=== PATIENT | male | born 1970 | race Caucasian/White ===

== ENCOUNTER 2018-08-09 18:38 | Emergency (ER) | payer MEDICAID, SELFPAY ==
[2018-08-09 18:41] VITALS: BP 143/105; PULSE 113; RESP 16; TEMP 36.3; O2SAT 99; BMI 29.1
--- NOTE | 2018-08-09 18:55 | EKG12_ITS ---
Test Reason : Blood Pressure : / mmHG Vent. Rate : 094 BPM Atrial Rate : 094 BPM P-R Int : 132 ms QRS Dur : 076 ms QT Int : 348 ms P-R-T Axes : 036 006 028 degrees QTc Int : 435 ms Normal sinus rhythm Nonspecific T wave abnormality Abnormal ECG Confirmed by CON MUIR, HANNA ([id number]), technical writer and editor COLLIN JACOBO ([id number] on 08/11/2018 2:40:00 PM Referred By: NIRANJAN Confirmed By:HANNA ANDUJAR MD
--- NOTE | 2018-08-09 19:01 | ED.RN ---
NO OLD EKG IN MUSE.
--- NOTE | 2018-08-09 19:18 | ED.VISSUMM ---
- ER Visit Summary Date of Service: 08/09/18 Chief Complaint: [] Transient confusion today History of Present Illness: The patient is a 48 M [] was with his they were about to go to lunch at a restaurant when he indicates he simply did not know where he was, he had trouble with memory for short period of time. He had no headache no change in vision no numbness 6 paresthesias he attributes this to the fact that he recently stopped Keppra which has been on for about 3 years related to seizures, however he recently had an extensive evaluation by his neurologist in [place] including multiple EEGs at least one possibly 2 MRI scans one with contrast that showed no brain lesions or acute brain abnormalities and since he had not had a seizure in some time they recommended he be weaned off the Keppra and he actually stopped the Keppra about 3 days ago, at this time he is back to his baseline, he has absolute clear recollection in detail of all of the events of today including remembering the episode when he seemed to have trouble remembering was with him there were no seizure activities he was not ill in any way today no fever no cough no new meds no history of stroke [place] PE DVT he is back to baseline resting cuffing the bed Physical Examination: [] 140/100 afebrile General, no distress resting comfortably HEENT is generally unremarkable The neck is supple no adenopathy Cardiovascular, regular rate and rhythm Lungs, clear bilateral Abdomen, soft nontender Extremities, no clubbing cyanosis or edema Neurologic, awake alert answering questions appropriately moving all 4 extremities stable in great detail to provide history about the entire day today including when he was confused about the restaurant location etc. given all the above is head CT screening labs The patient's labs and head CT are all generally unremarkable please see those reports his clinical neurologic exam remained completely unremarkable Expressing concern that this episode is related to the fact that he recently discontinued the Keppra I have explained to the differential is very broad at this time clinically looks well feels comfortable discharge home he wants to be discharged home I have asked him to contact his neurologist regarding all the above and whether or not the Keppra should be reinstituted and otherwise follow-up with all of his outpatient providers he is very comp with that plan and will return for change in symptoms Test Results: [] Emergency Department Course and Treatment: [] Treatment Plan: [] Disposition: [] Home stable Impression: [] Transient episode of confusion resolved This note was generated with Jambo dictation software. It may contain incorrect words, spelling, and punctuation that were not noted in review of the chart prior to signing ED Disposition - Plan for ED Patient: Chief Complaint: Confusion
--- NOTE | 2018-08-09 19:22 | ED.DCSUM_ITS ---
- ER Visit Summary Date of Service: 08/09/18 Chief Complaint: [] Transient confusion today History of Present Illness: The patient is a 48 M [] was with his they were about to go to lunch at a restaurant when he indicates he simply did not know where he was, he had trouble with memory for short period of time. He had no headache no change in vision no numbness 6 paresthesias he attributes this to the fact that he recently stopped Keppra which has been on for about 3 years related to seizures, however he recently had an extensive evaluation by his neurologist in [place] including multiple EEGs at least one possibly 2 MRI scans one with contrast that showed no brain lesions or acute brain abnormalities and since he had not had a seizure in some time they recommended he be weaned off the Keppra and he actually stopped the Keppra about 3 days ago, at this time he is back to his baseline, he has absolute clear recollection in detail of all of the events of today including remembering the episode when he seemed to have trouble remembering was with him there were no seizure activities he was not ill in any way today no fever no cough no new meds no history of stroke [place] PE DVT he is back to baseline resting cuffing the bed Physical Examination: [] 140/100 afebrile General, no distress resting comfortably HEENT is generally unremarkable The neck is supple no adenopathy Cardiovascular, regular rate and rhythm Lungs, clear bilateral Abdomen, soft nontender Extremities, no clubbing cyanosis or edema Neurologic, awake alert answering questions appropriately moving all 4 extremities stable in great detail to provide history about the entire day today including when he was confused about the restaurant location etc. given all the above is head CT screening labs The patient's labs and head CT are all generally unremarkable please see those reports his clinical neurologic exam remained completely unremarkable Expressing concern that this episode is related to the fact that he recently discontinued the Keppra I have explained to the differential is very broad at this time clinically looks well feels comfortable discharge home he wants to be discharged home I have asked him to contact his neurologist regarding all the above and whether or not the Keppra should be reinstituted and otherwise follow- up with all of his outpatient providers he is very comp with that plan and will return for change in symptoms Test Results: [] Emergency Department Course and Treatment: [] Treatment Plan: [] Disposition: [] Home stable Impression: [] Transient episode of confusion resolved This note was generated with [employer] dictation software. It may contain incorrect words, spelling, and punctuation that were not noted in review of the chart prior to signing ED Disposition - Plan for ED Patient: Chief Complaint: Confusion
--- NOTE | 2018-08-09 19:22 | CT_ITS ---
STUDY: CT BRAIN WITHOUT CONTRAST REASON FOR EXAM: Male, 48 years old. Confusion. History of seizures. RADIATION DOSAGE (If Supplied By Facility): CTDIvol = ( 44.99 ) mGy, DLP = ( 796.11 ) mGycm TECHNIQUE: Transaxial CT imaging of the brain was performed without administration of intravenous contrast material. Individualized dose optimization techniques were used for this CT. COMPARISON: None. FINDINGS: Normal soft tissue structures. Normal calvarium. Normal size ventricles and extra-axial spaces for the patient's age. Normal white matter tracts of the cerebral hemispheres. Normal basal ganglia and thalami. Normal brainstem. Normal cerebellum. There is no intracranial hemorrhage. There are no findings of an acute ischemic infarction. Normal visualized paranasal sinuses. CT/Brain/Head without Contrast IMPRESSION: Normal unenhanced CT scan of the brain. Electronically Signed: Nikki Lisa MD at 19:52 EST Tel , Service support ,
[2018-08-09] MEDS: 0.9% Normal Saline 1,000 ML 125 ML IV (19:30)
[2018-08-09 19:34] LABS: Absolute Lymphocyte Count 2.03 X10^3/ul (0.83-4.51); Basophil# 0.03 X10^3/uL; Basophil% 0.5 % (0-1); Eosinophil# 0.18 X10^3/uL; Eosinophils% 2.7 % (0-5); Hematocrit 43.2 % (40-54); Hemoglobin 15.3 g/dl (13.0-16.5); Lymphocyte # 2.03 X10^3/ul (4.0); Lymphocyte % 30.6 % (19-41); Mean Corp Hgb Conc 35.4 g/gl (32-36); Mean Corpuscular Volume 87.4 fL (80-94); Mean Platelet Vol. 10.8 fl (6.2-12.0); Monocyte# 0.39 X10^3/uL; Monocyte% 5.9 % (0-10); Neutrophil % 60.3 % (47-70); Platelet Count 217 K/mm3 (150-450); RBC Distribution Width CV 13.1 % (11.6-14.6); RBC Distribution Width SD 41.8 fl (35.1-43.9); Red Blood Count 4.94 M/mm3 (4.6-6.2); White Blood Count 6.6 K/mm3 (4.4-11.0)
[2018-08-09 19:37] LABS: Bacteria 0 SEEN /hpf (None Seen); Mucous, Urine 0 SEEN /hpf (<or=2+); Red Blood Cells-Urine 0 SEEN /hpf (0-5); Squamous Epithelial Cells - UA 0 SEEN /hpf (0-5); White Blood Cells 0 SEEN /hpf (0-5)
[2018-08-09 19:38] LABS: POSITIVE COUNT NO; POSITIVE DIFFERENTIAL NO; POSITIVE MORPHOLOGY NO
[2018-08-09 19:47] LABS: AST(SGOT) 41 U/L (15-37); Alanine Aminotransfer ALT/SGPT 75 U/L (16-61); Albumin, Serum 4.1 g/dL (3.2-5.0); Alkaline Phosphatase 85 U/L (45-117); Anion Gap 10 (5-15); BUN 12 mg/dL (7-18); BUN/Creat Ratio 10.1 RATIO (10-20); Bilirubin, Direct 0.15 mg/dL (0.00-0.30); Calcium,Total 8.5 mg/dL (8.5-10.1); Chloride 107 mmol/L (98-107); Creatinine, Serum 1.19 mg/dL (0.70-1.30); EST Glomerular Filtration Rate 70 mL/min (>60); Est Glom Filt Rate - Afr Amer 84 mL/min (>60); Estimated Creatinine Clearance 79.24 ml/min; Globulin 3.4 g/dL (2.2-4.2); Glucose 212 mg/dL (74-106); Lipase 253 U/L (73-393); Potassium 3.8 mmol/L (3.5-5.1); Protein, Total 7.5 g/dL (6.4-8.2); Sodium Level 140 mmol/L (136-145)
[2018-08-09 19:56] LABS: Color, Urine Yellow (Yellow); Glucose, Dipstick 100 mg/dl (Normal); Ketone-Dipstick 5 mg/dl (Negative); Leukocyte Esterase-Dipstick Negative /ul (Negative); Nitrite-Dipstick Negative (Negative); Occult Blood-Urine Negative /ul (Negative); Protein-Dipstick 30 mg/dl (Negative); Specific Gravity, Urine 1.015 (1.002-1.030); Urine Bilirubin Dipstick Negative (Negative); Urine Clarity Clear (Clear); Urine Urobilinogen Normal (Normal)
--- NOTE | 2018-08-09 20:06 | ED.DEP ---
ED Disposition - Plan for ED Patient: Chief Complaint: Confusion Instructions: ED Confusion Referrals: Darrell Singer MD [Primary Care Provider] - Additional Instructions: Please contact your neurologist regarding the above episode and whether or not you need other medications or management
[2018-08-09 20:57] VITALS: BP 140/103; PULSE 89; PULSE 92; O2SAT 96
== END 2018-08-09 21:17 | disposition home or self-care (01) ==
LOC: ED 19:21
PROVIDERS: Emergency Provider Emergency Medicine; Family Provider Family Medicine; PCP Family Medicine
DX: R41.0 Disorientation, unspecified (principal); Z79.899 Other long term (current) drug therapy; R56.9 Unspecified convulsions
CPT/HCPCS: 70450; 80048; 80076; 81001; 83690; 84484; 85025; 93005; 96360; 96361; 99283; J7030; A4216

== ENCOUNTER 2019-04-21 13:43 | Emergency (ER) | payer OTHER, MEDICAID, SELFPAY ==
[2019-04-21 13:44] VITALS: BP 123/81; PULSE 72; RESP 21; TEMP 36.6; O2SAT 97; BMI 29.6
--- NOTE | 2019-04-21 14:08 | RAD_ITS ---
STUDY: X-RAY CHEST REASON FOR EXAM: Male, 48 years old. Shortness of breath, dyspnea TECHNIQUE: AP COMPARISON: None. FINDINGS: EKG leads project over the chest. Right hemidiaphragm is elevated. There is no demonstrated pleural abnormality. Normal size heart. Normal mediastinum and jackson. Normal visualized pulmonary arteries. Normal visualized aortic arch and descending thoracic aorta. Normal visualized thoracic spine. Normal visualized ribs, clavicles, and shoulders. There is no demonstrated abnormality of the visualized soft tissue structures of the upper abdomen. RAD/Chest 1 View (Portable) IMPRESSION: No airspace consolidation or pleural effusion. Elevation of the right hemidiaphragm. Electronically Signed: Eugenio Mandujano MD ([place]) at 14:53 EDT , Service support ,
--- NOTE | 2019-04-21 14:09 | EKG12_ITS ---
Test Reason : CP Blood Pressure : / mmHG Vent. Rate : 071 BPM Atrial Rate : 071 BPM P-R Int : 126 ms QRS Dur : 086 ms QT Int : 400 ms P-R-T Axes : 034 028 049 degrees QTc Int : 434 ms Normal sinus rhythm Nonspecific T wave abnormality Abnormal ECG Confirmed by CON MUIR, HANNA ([id number]), film or videotape editor STUART ALBRIGHT ([id number]) on 04/24/2019 1:21:57 PM Referred By: JEAN Confirmed By:HANNA ANDUJAR MD
[2019-04-21 14:14] VITALS: BP 105/77; BP 113/89; BP 128/83; PULSE 69; PULSE 83; PULSE 86
[2019-04-21 14:20] LABS: Absolute Neutrophil Count 3.6 X10^3/uL (2.0-7.7); Basophil# 0.05 X10^3/uL; Basophil% 0.8 % (0-1); Eosinophil# 0.22 X10^3/uL; Eosinophils% 3.4 % (0-5); Hematocrit 41.6 % (40-54); Lymphocyte % 30.5 % (19-41); Mean Corp Hgb Conc 33.7 g/dL (32-36); Mean Corpuscular Hgb 30.2 pg (27.0-32.0); Mean Corpuscular Volume 89.7 fL (80-94); Mean Platelet Vol. 11.7 fl (6.2-12.0); Monocyte# 0.63 X10^3/uL; Monocyte% 9.6 % (0-10); NRBC Flagged by Analyzer 0 % (0-5); Neutrophil # 3.64 X10^3/uL (2.7-7.7); Neutrophil % 55.4 % (47-70); Platelet Count 215 K/mm3 (150-450); RBC Distribution Width CV 13.1 % (11.6-14.6); RBC Distribution Width SD 42.2 fl (35.1-43.9); Red Blood Count 4.64 M/mm3 (4.6-6.2); White Blood Count 6.6 K/mm3 (4.4-11.0)
[2019-04-21] MEDS: 0.9% Normal Saline 1,000 ML 1000 ML IV (14:22)
[2019-04-21 14:40] LABS: AST(SGOT) 27 U/L (15-37); Alanine Aminotransfer ALT/SGPT 59 U/L (16-61); Albumin, Serum 3.8 g/dL (3.2-5.0); Alkaline Phosphatase 94 U/L (45-117); Anion Gap 10 (5-15); BUN 11 mg/dL (7-18); BUN/Creat Ratio 8.6 RATIO (10-20); Calcium,Total 8.3 mg/dL (8.5-10.1); Chloride 108 mmol/L (98-107); Creatinine, Serum 1.28 mg/dL (0.70-1.30); EST Glomerular Filtration Rate 64 mL/min (>60); Est Glom Filt Rate - Afr Amer 77 mL/min (>60); Estimated Creatinine Clearance 73.67 ml/min; Globulin 3.7 g/dL (2.2-4.2); Glucose 198 mg/dL (74-106); Potassium 3.9 mmol/L (3.5-5.1); Protein, Total 7.5 g/dL (6.4-8.2); Sodium Level 142 mmol/L (136-145); Thyroid Stim Hormone (TSH) 4.81 uIU/mL (0.358-3.74)
[2019-04-21 15:11] VITALS: BP 124/82; PULSE 72; RESP 17; O2SAT 99
[2019-04-21 16:00] VITALS: BP 118/83; PULSE 71; RESP 17; O2SAT 94
--- NOTE | 2019-04-21 16:13 | EKG12_ITS ---
Test Reason : REPEAT CP Blood Pressure : / mmHG Vent. Rate : 066 BPM Atrial Rate : 066 BPM P-R Int : 126 ms QRS Dur : 082 ms QT Int : 398 ms P-R-T Axes : 039 033 061 degrees QTc Int : 417 ms Normal sinus rhythm Nonspecific T wave abnormality Abnormal ECG Confirmed by CON MUIR, HANNA ([id number]), school photograph editor STUART ALBRIGHT ([id number]) on 04/24/2019 1:22:17 PM Referred By: ALISSA Confirmed By:HANNA ANDUJAR MD
--- NOTE | 2019-04-21 17:31 | ED.DCSUM_ITS ---
- ER Visit Summary Date of Service: 04/21/19 Chief Complaint: Near syncope History of Present Illness: The patient is a 48 M who reports that 1 hour ago he had the sensation of lightheadedness. Reports it was increased with standing. He did not pass out. He reports that during this he felt like his entire body was being constricted by a snake. This included his chest, back, and abdomen. He reports that he was short of breath during this. He was gagging and coughing like he was going to vomit. Reports that the pain at that time was 10 on 10 severity. It has completely resolved. He reports that this was worsened by standing up and relieved by laying down. Patient reports he has had similar symptoms previously, but never this severe. He denies any palpitations. Physical Examination: Vitals: Stable. Afebrile. General: Well-nourished and well-developed. Head: Normocephalic atraumatic. Neck: Supple, no lymphadenopathy. No JVD. Nontender. Cardiovascular: Regular rate and rhythm. No murmurs. Respiratory: No respiratory distress. Clear to auscultation bilaterally. Abdominal: Soft, nontender, nondistended, normal bowel sounds. No guarding, rebound, or peritoneal signs. Back: Nontender. Extremities: Nontender, no edema. Skin: Normal color, no rash. Neurologic: Alert and oriented ?3. Cranial nerves II through XII are intact. Normal strength and sensation. Psych: Normal affect. Test Results: EKG is sinus at [address] changes. There it is unchanged from August 2018. Repeat EKG is unchanged. Initial troponin is negative. Repeat 3-hour troponin is negative. LFTs are normal. Chem-7 shows a chloride of 108, glucose 198, calcium 8.3. CBC is normal. TSH is elevated at 4.81. Chest x-ray shows an elevated right hemidiaphragm, but no acute disease. Emergency Department Course and Treatment: Patient had positive orthostatic vital signs. Is given a liter of normal saline. He is resting comfortably. Treatment Plan: At this time I suspect that some of the patient's symptoms were due to orthostatic hypotension. However, he reports that he still felt very lightheaded when lying. Given normal labs and an unremarkable EKG I feel it is a suitable candidate for further outpatient evaluation. He will be discharged instructions follow-up his primary care physician 1 to 2 days for another exam. Push fluids. Return to the emergency department for any worsening symptoms. Disposition: To home in improved and stable condition. Impression: 1. Near syncope, uncertain cause. 2. Orthostatic hypotension. This note was generated with [employer] software. It may contain incorrect words, spelling, and punctuation that were not noted in review of the chart prior to signing ED Disposition - Plan for ED Patient: Disposition: Home or Assisted Living Instructions: NEAR SYNCOPE, Unknown Referrals: Darrell Singer MD [Primary Care Provider] - 3-5 Days
[2019-04-21 17:49] VITALS: BP 119/92; PULSE 72; RESP 11; O2SAT 93
== END 2019-04-21 17:59 | disposition home or self-care (01) ==
PROVIDERS: Emergency Provider Emergency Medicine; Family Provider Family Medicine; PCP Family Medicine
DX: I95.1 Orthostatic hypotension (principal); E11.9 Type 2 diabetes mellitus without complications; I10 Essential (primary) hypertension; R56.9 Unspecified convulsions; E78.00 Pure hypercholesterolemia, unspecified; Z79.84 Long term (current) use of oral hypoglycemic drugs; Z79.899 Other long term (current) drug therapy
CPT/HCPCS: 71045; 80053; 84443; 84484; 85025; 93005; 96360; 96361; 99285; J7030; A4216

== ENCOUNTER 2020-09-11 06:49 | Inpatient (IN) | payer OTHER, MEDICAID, SELFPAY ==
[2020-09-11] VITALS (12 sets, daily range): BP systolic 116–158; BP diastolic 74–98; PULSE 85–110; RESP 18–89; TEMP 36.4–36.6; O2SAT 90–95; BMI 27.8; BMI 29.0
--- NOTE | 2020-09-11 07:03 | RAD_ITS ---
HISTORY: cough, SOB, loss of taste and smell, congestion x 9 dayspts is COVID+ ADDITIONAL HISTORY: None provided. COMPARISON: 04/21/2019 TECHNIQUE: Frontal chest radiograph. Number of images including paperwork: 1 FINDINGS: LUNGS AND PLEURA: Patchy bilateral airspace opacities. No pleural effusion or pneumothorax. CARDIAC SILHOUETTE: Unremarkable. MEDIASTINUM AND CHANDA: Stable. UPPER ABDOMEN: Unremarkable. SKELETON AND SOFT TISSUES: No acute findings. OTHER DEVICES AND HARDWARE: None. RAD/Chest 1 View (Portable) IMPRESSION: Bilateral pulmonary opacities, nonspecific but concerning for infection. COVID-19 infection possible. at 0741 Reported and signed by: Alyson Curry MD Electronically Signed: Alyson Curry MD at 7:41 EST Tel , Service support ,
--- NOTE | 2020-09-11 07:03 | EKG12_ITS ---
Test Reason : Blood Pressure : / mmHG Vent. Rate : 102 BPM Atrial Rate : 102 BPM P-R Int : 126 ms QRS Dur : 072 ms QT Int : 302 ms P-R-T Axes : 040 032 067 degrees QTc Int : 393 ms Sinus tachycardia Nonspecific T wave abnormality Abnormal ECG Confirmed by ROSEANN MUIR, JULIEN ([id number]), test boring crew chief STUART ALBRIGHT ([id number]) on 09/15/2020 9:47:44 AM Referred By: LAMBERTO Confirmed By:JULIEN WHITFIELD MD
--- NOTE | 2020-09-11 07:04 | ED.DCSUM_ITS ---
History of Present Illness Chief Complaint: Shortness of Breath Informant: Patient Narrative: 50-year-old male with past medical history of hyperlipidemia and DMII concerned for shortness of breath and cough. Patient's is on her 14th day of coronavirus and patient has had symptoms similar for approximately 9 days. States they worsened today with a cough where he could not catch his breath. States he becomes very dizzy. States he has been having intermittent fevers. Denies any nausea, vomiting, chest pain, abdominal pain, urinary symptoms. Past Medical History - Allergies and Home Meds Allergies/Adverse Reactions: Allergies No Known Allergies Allergy (Verified 09/11/20 06:54) Prior records reviewed: Yes Past Medical History: - - HTN and DMII Smoking Status: Former smoker Alcohol: None Drugs: None Review of Systems General: Reports: Fever, Malaise. Denies: Chills, Sweats Eyes: Denies: Visual changes - bilaterally, Diplopia ENT: Denies: Rhinorrhea, Sore throat Cardiovascular: Denies: Chest pain, Palpitations Respiratory: Reports: Dyspnea, Cough, Dyspnea on exertion Gastrointestinal: Denies: Abdominal pain, Nausea, Vomiting, Diarrhea, Melena, Hematochezia Genitourinary: Denies: Dysuria, Hematuria, Frequency Musculoskeletal: Denies: Back pain, Extremity Pain Skin: Denies: Rash, Wounds Neurological: Denies: Headache, Weakness, Numbness Physical Exam Vital Signs/Narrative: Vital Signs Temp Pulse Resp BP Pulse Ox 09/11/20 06:50 97.5 F L 110 H 18 152/96 H 90 Inital Vital Signs reviewed: Yes General: Well nourished, Well developed, No Acute Distress Head: Normocephalic, Atraumatic Eyes: Perrl, EOMI ENT: Moist mucous membranes, No rhinorrhea Neck: Supple, Nontender Cardiovascular: Regular rhythm, No murmurs, Tachycardia Respiratory: No distress, CTA bilaterally, Chest nontender Abdomen: Soft, Nontender, Nondistended, Normal bowel sounds Back: Nontender, Normal Inspection Extremities: Nontender, No edema Skin: Normal color, No rash Neurological: Alert, Oriented x3, Cranial nerves II-XII grossly intact, Normal Strength, Normal Sensation Psychological: Normal affect, Normal Mood Diagnostic/Tx/Re-eval Chest X-Ray - ED: 1 View, Read by ED Physician, Read by Radiologist, Right Infiltrate, Left Infiltrate Clinical Impression(s) from Imaging Studies Chest X-Ray 09/11/20 07:03 IMPRESSION: Bilateral pulmonary opacities, nonspecific but concerning for infection. COVID-19 infection possible. at 0741 Reported and signed by: Alyson Curry MD Electronically Signed: Alyson Curry MD at 7:41 EST Tel , Service support , Laboratory Data 09/11/20 09/11/20 07:00 07:00 WBC 4.2 L RBC 4.77 Hgb 13.7 Hct 40.2 MCV 84.3 MCH 28.7 MCHC 34.1 RDW Std Deviation 39.2 RDW Coeff of Jeremiah 12.8 Plt Count 187 MPV 11.4 Immature Gran % (Auto) 0.200 Neut % (Auto) 72.4 H Lymph % (Auto) 20.3 [place] % (Auto) 6.4 Eos % (Auto) 0.5 Baso % (Auto) 0.2 Absolute Neuts (auto) 3.1 Absolute Lymphs (auto) 0.86 Nucleated RBC % 0 Sodium 134 L Potassium 3.5 Chloride 103 Carbon Dioxide 22.0 Anion Gap 9 BUN 17 Creatinine 1.52 H Estim Creat Clear Calc 60.70 Est GFR (MDRD) Af Amer 63 Est GFR (MDRD) Non-Af 52 L BUN/Creatinine Ratio 11.2 Glucose 273 H Calcium 8.1 L Total Bilirubin 0.30 AST 27 ALT 43 Alkaline Phosphatase 103 Troponin I < 0.015 C-React Prot Ext Range 105.00 H Total Protein 7.7 Albumin 3.5 Globulin 4.2 Albumin/Globulin Ratio 0.8 L - Rhythm Strip Rhythm Strip: Sinus Tach Rate: 102 Ectopy: None - EKG Initial EKG Interpretation: Sinus Tachycardia - Sinus tachycardia at 102 bpm. CA interval of 126 ms. QTC of [address] changes. No evidence of acute ischemia. - Medical Decision Making On arrival patient is pale but not in respiratory distress. Vital signs show hypertensive and tachycardic patient with pulse ox around 90% on room air. Patient will desaturate to 88% while speaking. Patient was 89% when EMS reported to his home. Lung sounds are coarse but without wheezing. Lab work shows leukopenia with an elevated CRP and slightly elevated creatinine. Chest x-ray concerning for coronavirus. Rapid Covid negative however patient's is positive with stereotypical labs and chest x-ray patient will be treated as positive for coronavirus. Patient was given Decadron. He is requiring 1 to 2 L to maintain oxygen saturations of 93 to 94%. Patient will be given a fluid bolus given his perceived volume depletion. Patient heart rate improved as well as blood pressure following nasal cannula oxygen being placed. Given the patient's oxygen requirement as well as comorbidities and infiltrates on chest x-ray he will be admitted for further treatment and evaluation. Spoke with hospitalist who is agreeable with this plan. Patient stable at time of admission. Impression: 1. COVID-19 pneumonia 2. Hypoxemia 3. Volume depletion 4. Acute renal insufficiency ED Disposition - Plan for ED Patient: Disposition: Acute Care [facility]
[2020-09-11 07:17] LABS: Absolute Lymphocyte Count 0.86 X10^3/uL (0.83-4.51); Absolute Neutrophil Count 3.1 X10^3/uL (2.0-7.7); Basophil# 0.01 X10^3/uL; Basophil% 0.2 % (0-1); Eosinophil# 0.02 X10^3/uL; Eosinophils% 0.5 % (0-5); Hematocrit 40.2 % (40-54); Hemoglobin 13.7 g/dL (13.0-16.5); Lymphocyte # 0.86 X10^3/ul (4.0); Lymphocyte % 20.3 % (19-41); Mean Corp Hgb Conc 34.1 g/dL (32-36); Mean Corpuscular Hgb 28.7 pg (27.0-32.0); Mean Corpuscular Volume 84.3 fL (80-94); Mean Platelet Vol. 11.4 fl (6.2-12.0); Monocyte# 0.27 X10^3/uL; Monocyte% 6.4 % (0-10); NRBC Flagged by Analyzer 0 % (0-5); Neutrophil # 3.06 X10^3/uL (2.7-7.7); Neutrophil % 72.4 % (47-70); Platelet Count 187 K/mm3 (150-450); RBC Distribution Width CV 12.8 % (11.6-14.6); RBC Distribution Width SD 39.2 fl (35.1-43.9); Red Blood Count 4.77 M/mm3 (4.6-6.2); White Blood Count 4.2 K/mm3 (4.4-11.0)
[2020-09-11 07:32] LABS: ALB/GLOB Ratio 0.8 RATIO (0.9-2.4); AST(SGOT) 27 U/L (15-37); Alanine Aminotransfer ALT/SGPT 43 U/L (16-61); Albumin, Serum 3.5 g/dL (3.2-5.0); Alkaline Phosphatase 103 U/L (45-117); Anion Gap 9 (5-15); BUN 17 mg/dL (7-18); BUN/Creat Ratio 11.2 RATIO (10-20); Calcium,Total 8.1 mg/dL (8.5-10.1); Chloride 103 mmol/L (98-107); Creatinine, Serum 1.52 mg/dL (0.70-1.30); EST Glomerular Filtration Rate 52 mL/min (>60); Est Glom Filt Rate - Afr Amer 63 mL/min (>60); Globulin 4.2 g/dL (2.2-4.2); Glucose 273 mg/dL (74-106); Potassium 3.5 mmol/L (3.5-5.1); Protein, Total 7.7 g/dL (6.4-8.2); Sodium Level 134 mmol/L (136-145)
[2020-09-11] MEDS: dexAMETHasone 10 MG/ML Vial 6 MG IV (08:13)
[2020-09-11] MEDS: 0.9% Normal Saline 1,000 ML 999 ML IV (08:13)
[2020-09-11 09:23] LABS: D-Dimer Quantitative (DVT/PE) 0.59 FEU/ug/m (0.27-0.49)
[2020-09-11 10:28] LABS: Probe Check PASS; Specimen Processing Control PASS
[2020-09-11] MEDS: 0.9% Normal Saline 1,000 ML 125 ML IV ×2 (11:26→21:50)
[2020-09-11] MEDS: Insulin Lispro 100 UNIT/ML INSULN.PEN SC ×3 (11:26→21:53)
[2020-09-11] MEDS: Enoxaparin 30 MG/0.3 ML Syringe SC ×2 (11:30→21:55)
[2020-09-11 16:45] LABS: Bedside Glucose 315 mg/dL (70-110)
[2020-09-11] MEDS: metFORMIN HCl 1,000 MG Tablet 1000 MG PO (16:51)
[2020-09-11 17:10] LABS: Bedside Glucose 421 mg/dL (70-110)
--- NOTE | 2020-09-11 18:02 | PCM.HP.STD ---
Problem List (1) Shortness of breath Status: Acute (2) Nonproductive cough Status: Acute History of Present Illness Date of Admission: 09/11/20 Chief Complaint: Nonproductive cough, shortness of breath The patient is a 50 year old M seen in the emergency room at [facility] with a chief complaint of increased shortness of breath which started today, his had been diagnosed with COVID-19 infection 14 days ago, he stated he had begun feeling sick about 7 days ago. Patient also complains of a dry cough and generalized fatigue. Work-up in the emergency room included a Covid antigen test which was negative, D-dimer was elevated slightly, patient's white blood cell count was 3.8, patient's creatinine was elevated at 1.8, urinalysis was unremarkable, and chest x-ray showed bilateral infiltrates suggestive of viral pneumonia or COVID-19 pneumonia. Patient's pulse ox was 88% while speaking, when he was brought to the emergency room by EMS, his pulse ox was 89% on room air. Patient will be admitted for COVID-19 pneumonia with hypoxia and acute kidney injury, he was given IV fluids in the emergency room, IV Decadron, and he will be admitted to [place] [address] and placed on remdesivir and dexamethasone. Pulse ox will be monitored, patient is currently stable on 2 L Past Medical History Allergies No Known Allergies Allergy (Verified 09/11/20 06:54) Home Medications: Ambulatory Orders Medication Instructions Recorded Allopurinol [Zyloprim] 300 mg PO DAILY 04/21/19 Cetirizine HCl [Zyrtec] 10 mg PO DAILY 04/21/19 Diltiazem HCl [Diltiazem 24Hr Cd] 120 mg PO BID 04/21/19 Levetiracetam [Keppra] 750 mg PO BID 04/21/19 Levothyroxine [Synthroid] 25 mcg PO DAILY 04/21/19 Metformin HCl 2 tab PO BID 04/21/19 Rosuvastatin Calcium [Crestor] 5 mg PO DAILY 04/21/19 Sertraline HCl [Zoloft] 100 mg PO DAILY 04/21/19 Pantoprazole Sodium 40 mg PO DAILY 09/11/20 Surgical History: tonsillectomy Psychiatric History: No pertinent psych hx Lives: Spouse/ Significant Other Smoking Status: Former smoker Tobacco Use: Non-smoker, Chew Alcohol: Rare Drugs: None - *Family History Maternal History Items: Cancer - Lymphoma Paternal History Items: Diabetes, Heart Disease Review of Systems Constitutional: Reports: Fever, Malaise, Fatigue. Denies: Anorexia, Chills Eyes: Denies: Blurred vision, Cataracts, Conjunctivae Inflammation, Double vision, Drainage HEENT: Denies: Difficulty Swallowing, Dysphasia, Ear Pain, Eye Pain, Hearing Changes, Nasal bleeding, Nasal Congestion, Post Nasal Drip Cardiovascular: Denies: Chest Pain, Claudication, Chest Pressure, Chest Tightness, Edema Respiratory: Reports: Cough, Shortness of Breath, Shortness of breath at rest, Shortness of breath upon exertion. Denies: Hemoptysis, Pleuritic Pain, Sputum production, Wheezing Gastrointestinal: Denies: Abdominal Pain, Constipation, Diarrhea, Hematochezia, Nausea Genitourinary: Denies: Frequency, Hematuria, Nocturia, Retention Musculoskeletal: Denies: Back Pain, Foot Pain, Hand Pain, Joint swelling, Joint Tenderness, Leg Pain Skin: Denies: Dryness, Jaundice, Rash Neurological: Denies: Blurred vision, Double vision, Change in Speech, Focal weakness, Headaches, Incoordination Psychiatric: Denies: Anxiety, Depression Endocrine: Denies: Change in Body Habitus Hematologic/ Lymphatic: Denies: Anemia VTE Information - Inpt Only VTE Present on Admission: No VTE Mechan Device Prophylaxis: None VTE Pharm Prophylaxis ordered?: Yes - Physical Exam Vitals/I&O's: Vital Signs Temp Pulse Resp BP Pulse Ox 97.8 F 89 89 H 135/77 H 95 09/11/20 16:51 09/11/20 16:51 09/11/20 16:51 09/11/20 16:51 09/11/20 16:51 Oxygen Flow Rate (L/min) 2 Oxygen Delivery Method Nasal Cannula Weight: 91.6 kg Body Mass Index (BMI) 29.0 Intake and Output for Last 24 Hours 09/09/20 09/10/20 09/11/20 23:59 23:59 23:59 Intake Total 1250 / 1250 Balance 1250 / 1250 General: Alert, Oriented x3, Cooperative, No apparent distress, Well developed, Well nourished HEENT: Atraumatic, PERRLA, EOMI, Normocephalic Oral: Moist Mucosa Neck: Supple, No JVD, Trachea Midline, Thyroid Normal Size and Texture Lungs: Clear to auscultation, Normal air movement, No rhonchi, No wheeze, No rales Cardiovascular: Regular rate, Regular Rhythm, Normal S1, Normal S2, No murmurs, PMI Normal, No rub noted, No Gallop Abdomen: Bowel Sounds Present, Soft, Non Tender, Non-Distended, No hernias noted Extremities: No clubbing, No cyanosis, No edema, Capillary Refill Less than 3 Seconds Skin: No rashes, No breakdown Musculoskeletal: No Tenderness to Palpation of Joints or Extremities, No Muscle Wasting Neurological: Cranial nerves II-XII grossly intact, Neuro grossly intact, Sensory exam intact to light touch and pain, Coordination normal Psych/Mental Status: Normal Affect, Appropriate, Alert and oriented to time, place, person, mood and affect Microbiology Past 72 Hours 09/11/20 06:50 Mucosa - Nose SARS-CoV-2 Antigen (Rapid) - Final Laboratory Results 09/11/20 07:00: WBC 4.2 L, RBC 4.77, Hgb 13.7, Hct 40.2, MCV 84.3, MCH 28.7, MCHC 34.1, RDW Std Deviation 39.2, RDW Coeff of Jeremiah 12.8, Plt Count 187, MPV 11.4, Immature Gran % (Auto) 0.200, Neut % (Auto) 72.4 H, Lymph % (Auto) 20.3, Blanco % (Auto) 6.4, Eos % (Auto) 0.5, Baso % (Auto) 0.2, Absolute Neuts (auto) 3.1, Absolute Lymphs (auto) 0.86, Nucleated RBC % 0 09/11/20 07:00: Sodium 134 L, Potassium 3.5, Chloride 103, Carbon Dioxide 22.0, Anion Gap 9, BUN 17, Creatinine 1.52 H, Estim Creat Clear Calc 60.70, Est GFR (MDRD) Af Amer 63, Est GFR (MDRD) Non-Af 52 L, BUN/Creatinine Ratio 11.2, Glucose 273 H, Calcium 8.1 L, Total Bilirubin 0.30, AST 27, ALT 43, Alkaline Phosphatase 103, Troponin I < 0.015, C-React Prot Ext Range 105.00 H, Total Protein 7.7, Albumin 3.5, Globulin 4.2, Albumin/Globulin Ratio 0.8 L 09/11/20 08:00: COVID-19 ([facility]IVAN) Positive 09/11/20 08:55: D-Dimer Quant (PE/DVT) 0.59 H* 09/11/20 11:20: POC Glucose 315 H 09/11/20 16:46: POC Glucose 421 H Current Medications Acetaminophen (Acetaminophen 325 Mg Tablet) 650 mg PO Q6H PRN PRN PRN Reason: Pain Score 1-10/Temp > 100.7 F Allopurinol (Allopurinol 300 Mg Tablet) 300 mg PO DAILY [facility] Last Admin: 09/11/20 11:27 Dose: Not Given Documented by: Atorvastatin Calcium (Atorvastatin Calcium 10 Mg Tablet) 10 mg PO QHS [facility] Dexamethasone (Dexamethasone 4 Mg Tablet) 6 mg PO DAILY [facility] Diltiazem HCl (Diltiazem Cd 120 Mg Capsule) 120 mg PO BID [facility] Last Admin: 09/11/20 11:28 Dose: Not Given Documented by: Enoxaparin Sodium (Enoxaparin 30 Mg/0.3 Ml Syringe) 30 mg SC Q12 [facility] Last Admin: 09/11/20 11:30 Dose: 30 mg Documented by: Guaifenesin (Guaifenesin Dm 10 Ml Udc) 10 ml PO Q6H PRN PRN PRN Reason: COUGH Sodium Chloride () 1,000 mls @ 125 mls/hr IV .Q8H [facility] Last Admin: 09/11/20 11:26 Dose: 125 mls/hr Documented by: Remdesivir 100 mg/ Sodium (Chloride) 250 mls @ 125 mls/hr IV DAILY [facility] Stop: 09/15/20 11:59 Influenza Virus Vaccine Quadrival (Influenza Vaccine (6mos+)/Pf 0.5 Ml Syringe) 0.5 ml IM .ONCE ONE Stop: 09/12/20 10:01 Insulin Human Lispro (Insulin Lispro 100 Unit/Ml Insuln.Pen) 0 unit SC ACHS [facility]; Protocol Last Admin: 09/11/20 16:49 Dose: 11 u Documented by: Levetiracetam (Levetiracetam 750 Mg Tablet) 750 mg PO BID [facility] Last Admin: 09/11/20 11:28 Dose: Not Given Documented by: Levothyroxine Sodium (Levothyroxine 25 Mcg Tablet) 25 mcg PO DAILY [facility] Last Admin: 09/11/20 11:29 Dose: Not Given Documented by: Metformin HCl (Metformin Hcl 1,000 Mg Tablet) 1,000 mg PO BIDCM [facility] Last Admin: 09/11/20 16:51 Dose: 1,000 mg Documented by: Ondansetron HCl (Ondansetron 4 Mg/2 Ml Vial) 4 mg IV Q8H PRN PRN PRN Reason: NAUSEA/VOMITING Pantoprazole Sodium (Pantoprazole Sodium 40 Mg Tablet) 40 mg PO DAILY [facility] Last Admin: 09/11/20 11:28 Dose: Not Given Documented by: Sertraline HCl (Sertraline 100 Mg Tablet) 100 mg PO DAILY [facility] Last Admin: 09/11/20 11:29 Dose: Not Given Documented by: Sodium Chloride (0.9% Saline Lock 10 Ml Syringe) 10 - 40 ml IV UD PRN PRN Reason: SALINE FLUSH Assessment/Plan All Active Problems Shortness of breath (Acute) Nonproductive cough (Acute) #1 COVID-19 pneumonia-patient will be admitted to [facility] 2, he will be placed on remdesivir and dexamethasone, oxygen saturation will be monitored. Patient's D-dimer was elevated at 0.59, I will administer subcu Lovenox at 30 mg twice daily #2 hypoxia secondary to #1-oxygen will be administered and pulse ox will be monitored. #3 type 2 diabetes-patient's blood sugars will be monitored, sliding scale insulin will be given as needed #4 acute kidney injury-patient will be given IV fluids #5 hyperlipidemia #6 seizure disorder #7 essential hypertension Inpatient E&M: 50132 Init Hosp L3
--- NOTE | 2020-09-11 19:00 | NURSING ---
PT UPSET THAT GIVEN DIET SODA. PT AWARE THAT STEROIDS HAS MADE BS ELEVATED AND STATED, IF ITS HIGH WHY CANT I HAVE REG POP ANYWAYS?! I ALWAYS DRINK IT!
[2020-09-11] MEDS: levETIRAcetam 750 MG Tablet PO (21:55)
[2020-09-11] MEDS: Atorvastatin Calcium 10 MG Tablet PO (21:55)
[2020-09-11] MEDS: dilTIAZem CD 120 MG Capsule PO (21:55)
[2020-09-11 22:55] LABS: Bedside Glucose 295 mg/dL (70-110)
[2020-09-12 03:16] VITALS: BP 111/72; PULSE 85; RESP 18; TEMP 36.7; O2SAT 93
[2020-09-12] MEDS: guaiFENesin Dm 10 ML UDC PO ×3 (03:37→21:52)
[2020-09-12] MEDS: 0.9% Normal Saline 1,000 ML 125 ML IV ×3 (03:39→21:08)
[2020-09-12 05:47] LABS: ALB/GLOB Ratio 0.9 RATIO (0.9-2.4); AST(SGOT) 18 U/L (15-37); Alanine Aminotransfer ALT/SGPT 33 U/L (16-61); Albumin, Serum 2.8 g/dL (3.2-5.0); Alkaline Phosphatase 84 U/L (45-117); Anion Gap 6 (5-15); BUN 16 mg/dL (7-18); BUN/Creat Ratio 16.5 RATIO (10-20); Calcium,Total 7.5 mg/dL (8.5-10.1); Chloride 111 mmol/L (98-107); Creatinine, Serum 0.97 mg/dL (0.70-1.30); EST Glomerular Filtration Rate 88 mL/min (>60); Est Glom Filt Rate - Afr Amer 106 mL/min (>60); Estimated Creatinine Clearance 95.12 ml/min; Globulin 3.1 g/dL (2.2-4.2); Glucose 229 mg/dL (74-106); Potassium 4.1 mmol/L (3.5-5.1); Protein, Total 5.9 g/dL (6.4-8.2); Sodium Level 140 mmol/L (136-145)
[2020-09-12] MEDS: Insulin Lispro 100 UNIT/ML INSULN.PEN SC ×4 (07:47→21:03)
[2020-09-12 08:15] VITALS: O2SAT 95
[2020-09-12 08:23] VITALS: BP 123/79; PULSE 79; RESP 18; TEMP 36.9; O2SAT 94
[2020-09-12] MEDS: Sertraline 100 MG Tablet PO (08:25)
[2020-09-12] MEDS: Enoxaparin 30 MG/0.3 ML Syringe SC ×2 (08:25→21:02)
[2020-09-12] MEDS: Levothyroxine 25 MCG TABLET PO (08:25)
[2020-09-12] MEDS: levETIRAcetam 750 MG Tablet PO ×2 (08:26→21:02)
[2020-09-12] MEDS: metFORMIN HCl 1,000 MG Tablet 1000 MG PO ×2 (08:26→16:51)
[2020-09-12] MEDS: dilTIAZem CD 120 MG Capsule PO ×2 (08:26→21:02)
[2020-09-12] MEDS: Allopurinol 300 MG Tablet PO (08:26)
[2020-09-12] MEDS: dexAMETHasone 4 MG Tablet 6 MG PO (08:26)
[2020-09-12] MEDS: Pantoprazole Sodium 40 MG Tablet PO (08:26)
[2020-09-12 08:33] LABS: Bedside Glucose 215 mg/dL (70-110)
--- NOTE | 2020-09-12 11:36 | CASEMGMT ---
RN CM Assessment Note Introduced role of CM to patient via phone to room. Demographics, PCP verified. Patient states he is independent, no concerns re: discharge. Pt states he does not have care needs. Pt states had covid prior to him. No concerns re: getting groceries, medications or follow up on dc. COVID TESTING: @ [facility] 09/11/20 positive Presentation: cough, shortness of breath Diagnosis: COVID-19 PCP: Dr. Singer Insurance: [employer]/[facility] Preferred Pharmacy: Currently [place] Prescription Benefit: yes LNOK: Living Arrangements: lives independently @ home. No care needs identified. Tranportation: drives DME: none. discussed possible need for home oxygen. List of providers in network with [facility] reviewed and pt prefers [facility]. Pt aware of hospital affiliation. Discussed process re: home oxygen set up including portable tank to hospital and pt to call on dc for in home set up. Patient DC Goals: Home DC Plan: anticipate Home on dc. recommend oxygen testing @ rest and with activity. Contact CM for any concerns/needs that may arise. Margret WOLFFN RN ACM
[2020-09-12 13:21] LABS: Bedside Glucose 246 mg/dL (70-110)
[2020-09-12 13:41] VITALS: BP 127/81; PULSE 77; RESP 18; TEMP 36.5; O2SAT 94
--- NOTE | 2020-09-12 14:45 | NURSING ---
Walked in the room without oxygen and patient dropped to 87% on room air.
--- NOTE | 2020-09-12 15:55 | PCM.PROGNOTE ---
Patient Problems: Active and Suspected Problems Shortness of breath (Acute) Nonproductive cough (Acute) Subjective: Patient was seen and examined today, he states he wants to go home if possible but yet he still requires supplemental oxygen on ambulation. I told him I would advise staying in the hospital until he was on room air or until his remdesivir has been finished. Patient states that he has a lot of thick secretions, I have placed him on Mucinex. Objective: General: Alert, Oriented x3, Cooperative, No apparent distress, Well developed, Well nourished HEENT: Atraumatic, PERRLA, EOMI, Normocephalic Oral: Moist Mucosa Neck: Supple, No JVD, Trachea Midline, Thyroid Normal Size and Texture Lungs: Clear to auscultation, Normal air movement, No rhonchi, No wheeze, No rales Cardiovascular: Regular rate, Regular Rhythm, Normal S1, Normal S2, No murmurs, PMI Normal, No rub noted, No Gallop Abdomen: Bowel Sounds Present, Soft, Non Tender, Non-Distended, No hernias noted Extremities: No clubbing, No cyanosis, No edema, Capillary Refill Less than 3 Seconds Skin: No rashes, No breakdown Musculoskeletal: No Tenderness to Palpation of Joints or Extremities, No Muscle Wasting Neurological: Cranial nerves II-XII grossly intact, Neuro grossly intact, Sensory exam intact to light touch and pain, Coordination normal Psych/Mental Status: Normal Affect, Appropriate, Alert and oriented to time, place, person, mood and affect - Physical Exam Vitals/I&O's: Vital Signs Temp Pulse Resp BP Pulse Ox 97.7 F L 77 18 127/81 H 94 09/12/20 13:41 09/12/20 13:41 09/12/20 13:41 09/12/20 13:41 09/12/20 13:41 Oxygen Flow Rate (L/min) 2 Oxygen Delivery Method Nasal Cannula Weight: 91.6 kg Body Mass Index (BMI) 29.0 Intake and Output for Last 24 Hours 09/10/20 09/11/20 09/12/20 23:59 23:59 23:59 Intake Total 2730 / 3330 2977.08 / 2977.08 Balance 2730 / 3330 2977.08 / 2977.08 Microbiology Past 72 Hours 09/11/20 06:50 Mucosa - Nose SARS-CoV-2 Antigen (Rapid) - Final Laboratory Results 09/11/20 11:20: POC Glucose 315 H 09/11/20 16:46: POC Glucose 421 H 09/11/20 21:52: POC Glucose 295 H 09/12/20 04:46: Sodium 140, Potassium 4.1, Chloride 111 H, Carbon Dioxide 23.0, Anion Gap 6, BUN 16, Creatinine 0.97, Estim Creat Clear Calc 95.12, Est GFR (MDRD) Af Amer 106, Est GFR (MDRD) Non-Af 88, BUN/Creatinine Ratio 16.5, Glucose 229 H, Calcium 7.5 L, Total Bilirubin 0.40, AST 18, ALT 33, Alkaline Phosphatase 84, Total Protein 5.9 L, Albumin 2.8 L, Globulin 3.1, Albumin/Globulin Ratio 0.9 09/12/20 06:22: POC Glucose 215 H 09/12/20 11:38: POC Glucose 246 H Current Medications Acetaminophen (Acetaminophen 325 Mg Tablet) 650 mg PO Q6H PRN PRN PRN Reason: Pain Score 1-10/Temp > 100.7 F Allopurinol (Allopurinol 300 Mg Tablet) 300 mg PO DAILY [facility] Last Admin: 09/12/20 08:26 Dose: 300 mg Documented by: Atorvastatin Calcium (Atorvastatin Calcium 10 Mg Tablet) 10 mg PO QHS [facility] Last Admin: 09/11/20 21:55 Dose: 10 mg Documented by: Dexamethasone (Dexamethasone 4 Mg Tablet) 6 mg PO DAILY [facility] Last Admin: 09/12/20 08:26 Dose: 6 mg Documented by: Diltiazem HCl (Diltiazem Cd 120 Mg Capsule) 120 mg PO BID [facility] Last Admin: 09/12/20 08:26 Dose: 120 mg Documented by: Enoxaparin Sodium (Enoxaparin 30 Mg/0.3 Ml Syringe) 30 mg SC Q12 [facility] Last Admin: 09/12/20 08:25 Dose: 30 mg Documented by: Guaifenesin (Guaifenesin Dm 10 Ml Udc) 10 ml PO Q6H PRN PRN PRN Reason: COUGH Last Admin: 09/12/20 11:44 Dose: 10 ml Documented by: Guaifenesin (Guaifenesin 1,200 Mg Tablet) 1,200 mg PO BID [facility] Sodium Chloride () 1,000 mls @ 125 mls/hr IV .Q8H [facility] Last Admin: 09/12/20 13:40 Dose: 125 mls/hr Documented by: Remdesivir 100 mg/ Sodium (Chloride) 250 mls @ 125 mls/hr IV DAILY [facility] Stop: 09/15/20 11:59 Last Infusion: 09/12/20 11:56 Dose: Infused Documented by: Insulin Human Lispro (Insulin Lispro 100 Unit/Ml Insuln.Pen) 0 unit SC ACHS [facility]; Protocol Last Admin: 09/12/20 11:39 Dose: 4 u Documented by: Levetiracetam (Levetiracetam 750 Mg Tablet) 750 mg PO BID [facility] Last Admin: 09/12/20 08:26 Dose: 750 mg Documented by: Levothyroxine Sodium (Levothyroxine 25 Mcg Tablet) 25 mcg PO DAILY [facility] Last Admin: 09/12/20 08:25 Dose: 25 mcg Documented by: Metformin HCl (Metformin Hcl 1,000 Mg Tablet) [facility] Last Admin: 09/12/20 08:26 Dose: 1,000 mg Documented by: Ondansetron HCl (Ondansetron 4 Mg/2 Ml Vial) 4 mg IV Q8H PRN PRN PRN Reason: NAUSEA/VOMITING Pantoprazole Sodium (Pantoprazole Sodium 40 Mg Tablet) 40 mg PO DAILY [facility] Last Admin: 09/12/20 08:26 Dose: 40 mg Documented by: Sertraline HCl (Sertraline 100 Mg Tablet) 100 mg PO DAILY [facility] Last Admin: 09/12/20 08:25 Dose: 100 mg Documented by: Sodium Chloride (0.9% Saline Lock 10 Ml Syringe) 10 - 40 ml IV UD PRN PRN Reason: SALINE FLUSH Medical Necessity - Tobacco Use Smoking Status: Former smoker Tobacco Use: Non-smoker, Chew Assessment/Plan All Active Problems Shortness of breath (Acute) Nonproductive cough (Acute) #1 COVID-19 pneumonia-continue present treatment at this time, again Mucinex was added to his medications #2 hypoxia secondary to #1-oxygen will be administered and pulse ox will be monitored. #3 type 2 diabetes-patient's blood sugars will be monitored, sliding scale insulin will be given as needed #4 acute kidney injury-patient will be given IV fluids #5 hyperlipidemia #6 seizure disorder #7 essential hypertension Inpatient E&M: 04360 Subs Hosp L2
[2020-09-12] MEDS: guaiFENesin 1,200 MG Tablet 1200 MG PO ×2 (16:46→21:52)
[2020-09-12 17:50] LABS: Bedside Glucose 404 mg/dL (70-110)
[2020-09-12 20:57] VITALS: BP 144/82; PULSE 85; RESP 18; TEMP 36.6; O2SAT 95
[2020-09-12] MEDS: Atorvastatin Calcium 10 MG Tablet PO (21:02)
[2020-09-12 22:31] LABS: Bedside Glucose 247 mg/dL (70-110)
[2020-09-13] VITALS (7 sets, daily range): BP systolic 126–136; BP diastolic 73–91; PULSE 79–96; RESP 16–20; TEMP 36.1–36.6; O2SAT 92–96
[2020-09-13] MEDS: 0.9% Normal Saline 1,000 ML 125 ML IV ×2 (05:19→14:46)
[2020-09-13] MEDS: guaiFENesin Dm 10 ML UDC PO (05:20)
[2020-09-13] MEDS: Insulin Lispro 100 UNIT/ML INSULN.PEN SC ×4 (05:20→22:20)
[2020-09-13 06:36] LABS: Bedside Glucose 237 mg/dL (70-110)
[2020-09-13] MEDS: metFORMIN HCl 1,000 MG Tablet 1000 MG PO ×2 (08:18→16:20)
[2020-09-13] MEDS: guaiFENesin 1,200 MG Tablet 1200 MG PO ×2 (08:19→22:21)
[2020-09-13] MEDS: Enoxaparin 30 MG/0.3 ML Syringe SC ×2 (09:54→22:20)
[2020-09-13] MEDS: levETIRAcetam 750 MG Tablet PO ×2 (09:54→22:21)
[2020-09-13] MEDS: dexAMETHasone 4 MG Tablet 6 MG PO (09:54)
[2020-09-13] MEDS: dilTIAZem CD 120 MG Capsule PO ×2 (09:54→22:21)
[2020-09-13] MEDS: Levothyroxine 25 MCG TABLET PO (09:55)
[2020-09-13] MEDS: Sertraline 100 MG Tablet PO (09:55)
[2020-09-13] MEDS: Allopurinol 300 MG Tablet PO (09:55)
[2020-09-13] MEDS: Pantoprazole Sodium 40 MG Tablet PO (09:55)
[2020-09-13 12:41] LABS: Bedside Glucose 193 mg/dL (70-110)
[2020-09-13] MEDS: Albuterol 2.5 MG/3 ML VIAL.NEB. INHALATION ×2 (14:45→20:46)
--- NOTE | 2020-09-13 15:42 | PCM.PROGNOTE ---
Patient Problems: Active and Suspected Problems Shortness of breath (Acute) Nonproductive cough (Acute) Subjective: Patient was seen and examined today, he complains of having wheezing if he lies on his left side, patient also complains of a nonproductive cough. He remains on supplemental oxygen sometimes at 3 L. Objective: General: Alert, Oriented x3, Cooperative, No apparent distress, Well developed, Well nourished HEENT: Atraumatic, PERRLA, EOMI, Normocephalic Oral: Moist Mucosa Neck: Supple, No JVD, Trachea Midline, Thyroid Normal Size and Texture Lungs: Clear to auscultation, Normal air movement, No rhonchi, No wheeze, No rales Cardiovascular: Regular rate, Regular Rhythm, Normal S1, Normal S2, No murmurs, PMI Normal, No rub noted, No Gallop Abdomen: Bowel Sounds Present, Soft, Non Tender, Non-Distended, No hernias noted Extremities: No clubbing, No cyanosis, No edema, Capillary Refill Less than 3 Seconds Skin: No rashes, No breakdown Musculoskeletal: No Tenderness to Palpation of Joints or Extremities, No Muscle Wasting Neurological: Cranial nerves II-XII grossly intact, Neuro grossly intact, Sensory exam intact to light touch and pain, Coordination normal Psych/Mental Status: Normal Affect, Appropriate, Alert and oriented to time, place, person, mood and affect - Physical Exam Vitals/I&O's: Vital Signs Temp Pulse Resp BP Pulse Ox 97.8 F 88 16 136/91 H 92 09/13/20 14:35 09/13/20 14:35 09/13/20 14:35 09/13/20 14:35 09/13/20 14:35 Oxygen Flow Rate (L/min) 3 Oxygen Delivery Method Nasal Cannula Weight: 91.6 kg Body Mass Index (BMI) 29.0 Intake and Output for Last 24 Hours 09/11/20 09/12/20 09/13/20 23:59 23:59 23:59 Intake Total 2730 / 3330 4310.41 / 4310.41 217. / 2176.08 Balance 2730 / 3330 4310.41 / 4310.41 217. / 2176.08 Microbiology Past 72 Hours 09/11/20 06:50 Mucosa - Nose SARS-CoV-2 Antigen (Rapid) - Final Laboratory Results 09/12/20 16:49: POC Glucose 404 H 09/12/20 20:54: POC Glucose 247 H 09/13/20 05:17: POC Glucose 237 H 09/13/20 11:20: POC Glucose 193 H Current Medications Acetaminophen (Acetaminophen 325 Mg Tablet) 650 mg PO Q6H PRN PRN PRN Reason: Pain Score 1-10/Temp > 100.7 F Albuterol Sulfate (Albuterol 2.5 Mg/3 Ml Vial.Neb.) 2.5 mg INHALATION Q6HWA.RT [facility] Last Admin: 09/13/20 14:45 Dose: 2.5 mg Documented by: Allopurinol (Allopurinol 300 Mg Tablet) 300 mg PO DAILY [facility] Last Admin: 09/13/20 09:55 Dose: 300 mg Documented by: Atorvastatin Calcium (Atorvastatin Calcium 10 Mg Tablet) 10 mg PO QHS [facility] Last Admin: 09/12/20 21:02 Dose: 10 mg Documented by: Dexamethasone (Dexamethasone 4 Mg Tablet) 6 mg PO DAILY [facility] Last Admin: 09/13/20 09:54 Dose: 6 mg Documented by: Diltiazem HCl (Diltiazem Cd 120 Mg Capsule) 120 mg PO BID [facility] Last Admin: 09/13/20 09:54 Dose: 120 mg Documented by: Enoxaparin Sodium (Enoxaparin 30 Mg/0.3 Ml Syringe) 30 mg SC Q12 [facility] Last Admin: 09/13/20 09:54 Dose: 30 mg Documented by: Guaifenesin (Guaifenesin Dm 10 Ml Udc) 10 ml PO Q6H PRN PRN PRN Reason: COUGH Last Admin: 09/13/20 05:20 Dose: 10 ml Documented by: Guaifenesin (Guaifenesin 1,200 Mg Tablet) 1,200 mg PO BID [facility] Last Admin: 09/13/20 08:19 Dose: 1,200 mg Documented by: Sodium Chloride () 1,000 mls @ 125 mls/hr IV .Q8H [facility] Last Admin: 09/13/20 14:46 Dose: 125 mls/hr Documented by: Remdesivir 100 mg/ Sodium (Chloride) 250 mls @ 125 mls/hr IV DAILY [facility] Stop: 09/15/20 11:59 Last Infusion: 09/13/20 11:55 Dose: Infused Documented by: Insulin Human Lispro (Insulin Lispro 100 Unit/Ml Insuln.Pen) 0 unit SC ACHS [facility]; Protocol Last Admin: 09/13/20 11:21 Dose: 2 u Documented by: Levetiracetam (Levetiracetam 750 Mg Tablet) 750 mg PO BID [facility] Last Admin: 09/13/20 09:54 Dose: 750 mg Documented by: Levothyroxine Sodium (Levothyroxine 25 Mcg Tablet) 25 mcg PO DAILY [facility] Last Admin: 09/13/20 09:55 Dose: 25 mcg Documented by: Metformin HCl ([facility] Hcl [facility],000 Mg Tablet) [facility] Last Admin: 09/13/20 08:18 Dose: 1,000 mg Documented by: Ondansetron HCl (Ondansetron 4 Mg/2 Ml Vial) 4 mg IV Q8H PRN PRN PRN Reason: NAUSEA/VOMITING Pantoprazole Sodium (Pantoprazole Sodium 40 Mg Tablet) 40 mg PO DAILY [facility] Last Admin: 09/13/20 09:55 Dose: 40 mg Documented by: Sertraline HCl (Sertraline 100 Mg Tablet) 100 mg PO DAILY [facility] Last Admin: 09/13/20 09:55 Dose: 100 mg Documented by: Sodium Chloride (0.9% Saline Lock 10 Ml Syringe) 10 - 40 ml IV UD PRN PRN Reason: SALINE FLUSH Medical Necessity - Tobacco Use Smoking Status: Former smoker Tobacco Use: Non-smoker, Chew Assessment/Plan All Active Problems Shortness of breath (Acute) Nonproductive cough (Acute) #1 COVID-19 pneumonia-continue present treatment at this time, I have decided to add Proventil aerosol treatments to the patient's regimen #2 hypoxia secondary to #1-oxygen will be administered and pulse ox will be monitored. #3 type 2 diabetes-patient's blood sugars will be monitored, sliding scale insulin will be given as needed #4 acute kidney injury-this is resolved at this time, I will stop the patient's IV fluids #5 hyperlipidemia #6 seizure disorder #7 Essential hypertension Inpatient E&M: 12546 Subs Hosp L2
[2020-09-13 16:50] LABS: Bedside Glucose 254 mg/dL (70-110)
[2020-09-13] MEDS: Atorvastatin Calcium 10 MG Tablet PO (22:21)
[2020-09-13 23:31] LABS: Bedside Glucose 340 mg/dL (70-110)
[2020-09-14] VITALS (9 sets, daily range): BP systolic 129–147; BP diastolic 76–90; PULSE 66–93; RESP 16–18; TEMP 36–36.8; O2SAT 92–98
[2020-09-14] MEDS: Insulin Lispro 100 UNIT/ML INSULN.PEN SC ×4 (06:50→20:12)
[2020-09-14 07:06] LABS: Bedside Glucose 260 mg/dL (70-110)
[2020-09-14] MEDS: Albuterol 2.5 MG/3 ML VIAL.NEB. INHALATION ×2 (08:23→19:43)
--- NOTE | 2020-09-14 09:35 | NURSING ---
Had pt remove 02 to get ra p.o. Pt dropped to 88-89% on RA while sitting in bed. Didnt do walking p.o.. 2l reapplied, sats are back to 92%.
[2020-09-14] MEDS: metFORMIN HCl 1,000 MG Tablet 1000 MG PO ×2 (09:50→16:45)
[2020-09-14] MEDS: dexAMETHasone 4 MG Tablet 6 MG PO (09:51)
[2020-09-14] MEDS: dilTIAZem CD 120 MG Capsule PO ×2 (09:51→20:11)
[2020-09-14] MEDS: levETIRAcetam 750 MG Tablet PO ×2 (09:52→20:11)
[2020-09-14] MEDS: Enoxaparin 30 MG/0.3 ML Syringe SC (09:52)
[2020-09-14] MEDS: Levothyroxine 25 MCG TABLET PO (09:53)
[2020-09-14] MEDS: Pantoprazole Sodium 40 MG Tablet PO (09:53)
[2020-09-14] MEDS: guaiFENesin 1,200 MG Tablet 1200 MG PO ×2 (09:53→20:11)
[2020-09-14] MEDS: Sertraline 100 MG Tablet PO (09:54)
[2020-09-14] MEDS: Allopurinol 300 MG Tablet PO (09:54)
[2020-09-14 14:16] LABS: Bedside Glucose 261 mg/dL (70-110)
--- NOTE | 2020-09-14 14:33 | PCM.PROGNOTE ---
Patient Problems: Active and Suspected Problems Shortness of breath (Acute) Nonproductive cough (Acute) Subjective: Patient was seen and examined today, he remains on nasal cannula oxygen. Patient states his cough is better today, he has 1 more day of remdesivir-it will be finished tomorrow. At that time, patient could be discharged home on supplemental oxygen provided that his ambulatory oxygen requirement is under 6 L. Objective: General: Alert, Oriented x3, Cooperative, No apparent distress, Well developed, Well nourished HEENT: Atraumatic, PERRLA, EOMI, Normocephalic Oral: Moist Mucosa Neck: Supple, No JVD, Trachea Midline, Thyroid Normal Size and Texture Lungs: Clear to auscultation, Normal air movement, No rhonchi, No wheeze, No rales Cardiovascular: Regular rate, Regular Rhythm, Normal S1, Normal S2, No murmurs, PMI Normal, No rub noted, No Gallop Abdomen: Bowel Sounds Present, Soft, Non Tender, Non-Distended, No hernias noted Extremities: No clubbing, No cyanosis, No edema, Capillary Refill Less than 3 Seconds Skin: No rashes, No breakdown Musculoskeletal: No Tenderness to Palpation of Joints or Extremities, No Muscle Wasting Neurological: Cranial nerves II-XII grossly intact, Neuro grossly intact, Sensory exam intact to light touch and pain, Coordination normal Psych/Mental Status: Normal Affect, Appropriate, Alert and oriented to time, place, person, mood and affect - Physical Exam Vitals/I&O's: Vital Signs Temp Pulse Resp BP Pulse Ox 97.8 F 66 16 130/89 H 94 09/14/20 14:22 09/14/20 14:22 09/14/20 14:22 09/14/20 14:22 09/14/20 14:22 Oxygen Flow Rate (L/min) 2 Oxygen Delivery Method Nasal Cannula Weight: 91.6 kg Body Mass Index (BMI) 29.0 Intake and Output for Last 24 Hours 09/12/20 09/13/20 09/14/20 23:59 23:59 23:59 Intake Total 4310.41 / 4310.41 2456.25 / 2696.25 730 / 730 Balance 4310.41 / 4310.41 2456.25 / 2696.25 730 / 730 Laboratory Results 09/13/20 16:19: POC Glucose 254 H 09/13/20 22:14: POC Glucose 340 H 09/14/20 06:49: POC Glucose 260 H 09/14/20 10:33: POC Glucose 261 H Current Medications Acetaminophen (Acetaminophen 325 Mg Tablet) 650 mg PO Q6H PRN PRN PRN Reason: Pain Score 1-10/Temp > 100.7 F Albuterol Sulfate (Albuterol 2.5 Mg/3 Ml Vial.Neb.) 2.5 mg INHALATION Q6HWA.RT [facility] Last Admin: 09/14/20 08:23 Dose: 2.5 mg Documented by: Allopurinol (Allopurinol 300 Mg Tablet) 300 mg PO DAILY [facility] Last Admin: 09/14/20 09:54 Dose: 300 mg Documented by: Atorvastatin Calcium (Atorvastatin Calcium 10 Mg Tablet) 10 mg PO QHS [facility] Last Admin: 09/13/20 22:21 Dose: 10 mg Documented by: Dexamethasone (Dexamethasone 4 Mg Tablet) 6 mg PO DAILY [facility] Last Admin: 09/14/20 09:51 Dose: 6 mg Documented by: Diltiazem HCl (Diltiazem Cd 120 Mg Capsule) 120 mg PO BID [facility] Last Admin: 09/14/20 09:51 Dose: 120 mg Documented by: Enoxaparin Sodium (Enoxaparin 30 Mg/0.3 Ml Syringe) 30 mg SC Q12 [facility] Last Admin: 09/14/20 09:52 Dose: 30 mg Documented by: Guaifenesin (Guaifenesin 1,200 Mg Tablet) 1,200 mg PO BID [facility] Last Admin: 09/14/20 09:53 Dose: 1,200 mg Documented by: Guaifenesin/Codeine Phosphate (Guaifenesin/Codeine 5 Ml Udc) 10 ml PO Q6H PRN PRN PRN Reason: COUGH Remdesivir 100 mg/ Sodium (Chloride) 250 mls @ 125 mls/hr IV DAILY [facility] Stop: 09/15/20 11:59 Last Infusion: 09/14/20 12:35 Dose: Infused Documented by: Insulin Human Lispro (Insulin Lispro 100 Unit/Ml Insuln.Pen) 0 unit SC ACHS [facility]; Protocol Last Admin: 09/14/20 10:35 Dose: 6 u Documented by: Levetiracetam (Levetiracetam 750 Mg Tablet) 750 mg PO BID [facility] Last Admin: 09/14/20 09:52 Dose: 750 mg Documented by: Levothyroxine Sodium (Levothyroxine 25 Mcg Tablet) 25 mcg PO DAILY [facility] Last Admin: 09/14/20 09:53 Dose: 25 mcg Documented by: Metformin HCl ([facility] Hcl [facility],000 Mg Tablet) [facility] Admin: 09/14/20 09:50 Dose: 1,000 mg Documented by: Ondansetron HCl (Ondansetron 4 Mg/2 Ml Vial) 4 mg IV Q8H PRN PRN PRN Reason: NAUSEA/VOMITING Pantoprazole Sodium (Pantoprazole Sodium 40 Mg Tablet) 40 mg PO DAILY [facility] Last Admin: 09/14/20 09:53 Dose: 40 mg Documented by: Sertraline HCl (Sertraline 100 Mg Tablet) 100 mg PO DAILY [facility] Last Admin: 09/14/20 09:54 Dose: 100 mg Documented by: Sodium Chloride (0.9% Saline Lock 10 Ml Syringe) 10 - 40 ml IV UD PRN PRN Reason: SALINE FLUSH Medical Necessity - Tobacco Use Smoking Status: Former smoker Tobacco Use: Non-smoker, Chew Assessment/Plan All Active Problems Shortness of breath (Acute) Nonproductive cough (Acute) #1 COVID-19 pneumonia-continue present treatment at this time, remdesivir will be finished after tomorrow's dose. I had a discussion with his about his medical condition and the fact that he was most probably going to be ready for discharge tomorrow. Patient is worried about possible blood clots, I have elected to place him on Eliquis starting tonight-2.5 mg twice daily, this will need to be continued for period of time after he is discharged. #2 hypoxia secondary to #1-oxygen will be administered and pulse ox will be monitored. He will need a walking pulse oximetry done tomorrow to see if he qualifies for home O2, I believe he will need oxygen at least on ambulation and probably at rest set up for home. #3 type 2 diabetes-patient's blood sugars will be monitored, sliding scale insulin will be given as needed, I have decided to place the patient on Amaryl 4 mg daily to augment his Metformin he was on at home, patient has never been on insulin and he will more than likely go home tomorrow. I have discussed this with his and I told his that he may need to cut back on the Amaryl after he finishes the dexamethasone. #4 acute kidney injury-this is resolved at this time #5 hyperlipidemia #6 seizure disorder #7 Essential hypertension Inpatient E&M: 87700 Subs Hosp L2
[2020-09-14] MEDS: Glimepiride 4 MG Tablet PO (16:52)
[2020-09-14 17:06] LABS: Bedside Glucose 284 mg/dL (70-110)
[2020-09-14] MEDS: APIXABAN 2.5 MG TABLET PO (20:11)
[2020-09-14] MEDS: Atorvastatin Calcium 10 MG Tablet PO (20:11)
[2020-09-14 22:10] LABS: Bedside Glucose 291 mg/dL (70-110)
[2020-09-15] VITALS (7 sets, daily range): BP systolic 127–147; BP diastolic 76–89; PULSE 74–97; RESP 16–20; TEMP 36.1–36.4; O2SAT 89–97
[2020-09-15] MEDS: Insulin Lispro 100 UNIT/ML INSULN.PEN SC ×2 (06:46→12:39)
[2020-09-15 07:16] LABS: Bedside Glucose 186 mg/dL (70-110)
--- NOTE | 2020-09-15 07:35 | DS.PCM_ITS ---
Discharge Date and Diagnosis - Problem List Patient Problems: Active and Suspected Problems Shortness of breath (Acute) Nonproductive cough (Acute) Date of Admission: 09/11/20 Date of Discharge: 09/15/20 - Primary Discharge Diagnosis Acute Problems: Active Problems Shortness of breath (Acute) Nonproductive cough (Acute) Hospital Course and Treatment Summary of Care Provided: The patient is a 50 year old M was admitted to [facility] floor for worsening of shortness of breath for 1 day along with generalized fatigue, sickness, dry cough for about 7 days. Patient D-dimer was elevated, mild leukopenia normalized on 2.8 thousand. Chest x-ray showed bilateral infiltrates suggestive of viral, COVID-19 pneumonia. Mild hypoxia with pulse ox 88% on room air #1 COVID-19 pneumonia with mild hypoxia: Patient was treated with IV Decadron and remdesivir. Patient pulse ox 93% on room air dropped to 89% on ambulation. Patient was treated with anticoagulation Eliquis DVT prophylaxis dose and discharged on 2 more weeks. #2 hypoxia secondary to COVID-19 pneumonia: Patient is ambulatory in home and in the community and requires home oxygen with portability. Patient will need 1-2 L of oxygen on ambulation. #3 type 2 diabetes-blood sugar was elevated and was started on insulin sliding scale and glimepiride 4 mg daily. Prescription given for glimepiride. Advised to follow with PCP to adjust the dose of medication and better glycemic control. Patient might need reduction of dose of glimepiride after he completes dexamethasone #4 acute kidney injury-this is resolved at this time #5 hyperlipidemia: On rosuvastatin at home. On Cardizem CD 120 mg twice daily #6 seizure disorder: On Keppra #7 Essential hypertension blood pressure is controlled Discharge medication reconciliation done. Discharge follow-up instructions completed. Discharge process discussed with the patient and all questions were answered to patient's satisfaction. Prescription was given for Eliquis, Mucinex, Decadron and glimepiride. Advised to quarantine for 1 more week. Total time spent, exact 35 minutes on discharge meds reconciliation, ex amination, coordination of care with nurses and ancillary staff, review of imaging and blood test and discussion with the patient on follow-up instructions Patient Problems: Active and Suspected Problems Shortness of breath (Acute) Nonproductive cough (Acute) Objective: Seen and examined. Patient heart rate and blood pressure is controlled. Patient pulse ox at rest 93% dropped to 89% on ambulation. Patient had mild cough and gastric reflux after he ate breakfast. Physical exam General: Alert, Oriented x3, Cooperative HEENT: Atraumatic, PERRLA, EOMI, Normocephalic Oral: No Gingival or Mucosal Lesions/ Ulcerations Neck: Supple, No JVD, Negative Carotid Bruits Lungs: Air entry diminished in bilateral lung bases. No crepitation/rhonchi. Cardiovascular: Regular rate, Regular Rhythm, Normal S1, Normal S2, No murmurs Abdomen: Bowel Sounds Present, Soft, Non Tender, Non-Distended : No renal angle tenderness. No suprapubic tenderness. Extremities: No edema, Capillary Refill Less than 3 Seconds Skin: No rashes, No breakdown Musculoskeletal: No Tenderness to Palpation of Joints or Extremities Neurological: Cranial nerves II-XII grossly intact, Deep Tendon Reflexes 2+/4 and Symmetrical, Neuro grossly intact Psych/Mental Status: Normal Affect, Appropriate. - Physical Exam Vitals/I&O's: Vital Signs Temp Pulse Resp BP Pulse Ox 97.6 F L 74 16 127/76 H 92 09/15/20 04:00 09/15/20 04:00 09/15/20 04:00 09/15/20 04:00 09/15/20 04:13 Oxygen Flow Rate (L/min) 2 Oxygen Delivery Method Nasal Cannula Weight: 201 lb 15.095 oz Body Mass Index (BMI) 29.0 Intake and Output for Last 24 Hours 09/13/20 09/14/20 09/15/20 23:59 23:59 23:59 Intake Total 2456.25 / 2696.25 730 / 970 480 / 480 Balance 2456.25 / 2696.25 730 / 970 480 / 480 Laboratory Results 09/14/20 10:33: POC Glucose 261 H 09/14/20 16:44: POC Glucose 284 H 09/14/20 20:05: POC Glucose 291 H 09/15/20 06:45: POC Glucose 186 H Current Medications Acetaminophen (Acetaminophen 325 Mg Tablet) 650 mg PO Q6H PRN PRN PRN Reason: Pain Score 1-10/Temp > 100.7 F Albuterol Sulfate (Albuterol 2.5 Mg/3 Ml Vial.Neb.) 2.5 mg INHALATION Q6HWA.RT [facility] Last Admin: 09/14/20 19:43 Dose: 2.5 mg Documented by: Allopurinol (Allopurinol 300 Mg Tablet) 300 mg PO DAILY [facility] Last Admin: 09/14/20 09:54 Dose: 300 mg Documented by: Apixaban (Apixaban 2.5 Mg Tablet) 2.5 mg PO BID [facility] Last Admin: 09/14/20 20:11 Dose: 2.5 mg Documented by: Atorvastatin Calcium (Atorvastatin Calcium 10 Mg Tablet) 10 mg PO QHS [facility] Last Admin: 09/14/20 20:11 Dose: 10 mg Documented by: Dexamethasone (Dexamethasone 4 Mg Tablet) 6 mg PO DAILY [facility] Last Admin: 09/14/20 09:51 Dose: 6 mg Documented by: Diltiazem HCl (Diltiazem Cd 120 Mg Capsule) 120 mg PO BID [facility] Last Admin: 09/14/20 20:11 Dose: 120 mg Documented by: Glimepiride (Glimepiride 4 Mg Tablet) 4 mg PO DAILY@0800 [facility] Guaifenesin (Guaifenesin 1,200 Mg Tablet) 1,200 mg PO BID [facility] Last Admin: 09/14/20 20:11 Dose: 1,200 mg Documented by: Guaifenesin/Codeine Phosphate (Guaifenesin/Codeine 5 Ml Udc) 10 ml PO Q6H PRN PRN PRN Reason: COUGH Remdesivir 100 mg/ Sodium (Chloride) 250 mls @ 125 mls/hr IV DAILY [facility] Stop: 09/15/20 11:59 Last Infusion: 09/14/20 12:35 Dose: Infused Documented by: Insulin Human Lispro (Insulin Lispro 100 Unit/Ml Insuln.Pen) 0 unit SC [facility]; Protocol Last Admin: 09/15/20 06:46 Dose: 2 u Documented by: Levetiracetam (Levetiracetam 750 Mg Tablet) 750 mg PO BID [facility] Last Admin: 09/14/20 20:11 Dose: 750 mg Documented by: Levothyroxine Sodium (Levothyroxine 25 Mcg Tablet) 25 mcg PO DAILY [facility] Last Admin: 09/14/20 09:53 Dose: 25 mcg Documented by: Metformin HCl (Metformin Hcl 1,000 Mg Tablet) [facility] Last Admin: 09/14/20 16:45 Dose: 1,000 mg Documented by: Ondansetron HCl (Ondansetron 4 Mg/2 Ml Vial) 4 mg IV Q8H PRN PRN PRN Reason: NAUSEA/VOMITING Pantoprazole Sodium (Pantoprazole Sodium 40 Mg Tablet) 40 mg PO DAILY [facility] Last Admin: 09/14/20 09:53 Dose: 40 mg Documented by: Sertraline HCl (Sertraline 100 Mg Tablet) 100 mg PO DAILY [facility] Last Admin: 09/14/20 09:54 Dose: 100 mg Documented by: Sodium Chloride (0.9% Saline Lock 10 Ml Syringe) 10 - 40 ml IV UD PRN PRN Reason: SALINE FLUSH Home Medications: Medications to take at Discharge Allopurinol [Zyloprim] 300 mg PO DAILY 04/21/19 Cetirizine HCl [Zyrtec] 10 mg PO DAILY 04/21/19 Diltiazem HCl [Diltiazem 24Hr Cd] 120 mg PO BID 04/21/19 Levetiracetam [Keppra] 750 mg PO BID 04/21/19 Levothyroxine [Synthroid] 25 mcg PO DAILY 04/21/19 Metformin HCl 2 tab PO BID 04/21/19 Rosuvastatin Calcium [Crestor] 5 mg PO DAILY 04/21/19 Sertraline HCl [Zoloft] 100 mg PO DAILY 04/21/19 Pantoprazole Sodium 40 mg PO DAILY 09/11/20 Apixaban [Eliquis] 2.5 mg PO BID #14 tab 09/15/20 Dexamethasone [Decadron] 6 mg PO DAILY #5 tab 09/15/20 Glimepiride [Amaryl] 4 mg PO DAILY@0800 #30 tab 09/15/20 Guaifenesin [Mucinex] 1,200 mg PO BID #14 tab 09/15/20 Following Prescriptions Were Given to Patient: Glimepiride [Amaryl] 4 mg PO DAILY@0800 #30 tab Transmission Status: Received by [id number] Dexamethasone [Decadron] 6 mg PO DAILY #5 tab Transmission Status: Received by [id number] Apixaban [Eliquis] 2.5 mg PO BID #14 tab Transmission Status: Received by [id number] Guaifenesin [Mucinex] 1,200 mg PO BID #14 tab Transmission Status: Received by [id number] Primary Care Physician: Darrell Singer MD [Primary Care Provider] - Medical Necessity - Tobacco Use Smoking Status: Former smoker Tobacco Use: Non-smoker, Chew Meaningful Use Info Meaningful Use Diagnoses (Choose all that apply): None applicable Inpatient E&M: 99281 [facility] Hosp
--- NOTE | 2020-09-15 07:35 | PCM.DC ---
- Discharge Diagnoses Current Active Problems: Current Active and Chronic Problems Shortness of breath (Acute) Nonproductive cough (Acute) You will use the following diet at home:: Calorie/Carbohydrate Controlled (specify 1200, 1400, etc) - Carb Controlled diet Your food should be the consistency of: Regular Your liquids should be the consistency of: Regular/Thin - Self quarantine for 1 more weeks. Discharge Activity: May Not Drive Weight Bearing Status: Weight bearing as tolerated Call your doctor if you observe: Fever of 101 or Higher, Coldness, Increased Pain, Numbness or Tingling, Change in Color, Inability to urinate, Inability to have a bowel movement, Shortness of breath, Dizziness, Fainting spells, Swelling in the ankles, Chest pain, Prolonged hiccoughing, Increased palpitations (irregular heartbeat), Calf discomfort, Uncontrolled pain Allergies/Adverse Reactions: Allergies No Known Allergies Allergy (Verified 09/11/20 06:54) Medications to take at Discharge Allopurinol [Zyloprim] 300 mg PO DAILY 04/21/19 Cetirizine HCl [Zyrtec] 10 mg PO DAILY 04/21/19 Diltiazem HCl [Diltiazem 24Hr Cd] 120 mg PO BID 04/21/19 Levetiracetam [Keppra] 750 mg PO BID 04/21/19 Levothyroxine [Synthroid] 25 mcg PO DAILY 04/21/19 Metformin HCl 2 tab PO BID 04/21/19 Rosuvastatin Calcium [Crestor] 5 mg PO DAILY 04/21/19 Sertraline HCl [Zoloft] 100 mg PO DAILY 04/21/19 Pantoprazole Sodium 40 mg PO DAILY 09/11/20 Apixaban [Eliquis] 2.5 mg PO BID #14 tab 09/15/20 Dexamethasone [Decadron] 6 mg PO DAILY #5 tab 09/15/20 Glimepiride [Amaryl] 4 mg PO DAILY@0800 #30 tab 09/15/20 Guaifenesin [Mucinex] 1,200 mg PO BID #14 tab 09/15/20 The following prescriptions were given: Glimepiride [Amaryl] 4 mg PO DAILY@0800 #30 tab Transmission Status: Pending to [facility]/pharmacy #[id number] Dexamethasone [Decadron] 6 mg PO DAILY #5 tab Transmission Status: P[facility] to [id number] Apixaban [Eliquis] 2.5 mg PO BID #14 tab Transmission Status: Pending to [id number] Guaifenesin [Mucinex] 1,200 mg PO BID #14 tab Transmission Status: Pending to [id number] Primary Care Physician: Darrell Singer MD [Primary Care Provider] - Please follow up with your Primary Care Physician in: in 1-2 weeks Test Results: Test results from this visit will be discussed in further detail at your follow-up appointment, if applicable.
[2020-09-15] MEDS: Albuterol 2.5 MG/3 ML VIAL.NEB. INHALATION (07:55)
[2020-09-15] MEDS: guaiFENesin 1,200 MG Tablet 1200 MG PO (09:43)
[2020-09-15] MEDS: metFORMIN HCl 1,000 MG Tablet 1000 MG PO (09:43)
[2020-09-15] MEDS: Glimepiride 4 MG Tablet PO (09:43)
[2020-09-15] MEDS: levETIRAcetam 750 MG Tablet PO (09:43)
[2020-09-15] MEDS: Allopurinol 300 MG Tablet PO (09:43)
[2020-09-15] MEDS: APIXABAN 2.5 MG TABLET PO (09:44)
[2020-09-15] MEDS: Levothyroxine 25 MCG TABLET PO (09:44)
[2020-09-15] MEDS: Sertraline 100 MG Tablet PO (09:44)
[2020-09-15] MEDS: dilTIAZem CD 120 MG Capsule PO (09:44)
[2020-09-15] MEDS: Pantoprazole Sodium 40 MG Tablet PO (09:44)
[2020-09-15] MEDS: dexAMETHasone 4 MG Tablet 6 MG PO (09:45)
[2020-09-15] MEDS: 0.9% Saline Lock 10 ML Syringe IV (09:51)
--- NOTE | 2020-09-15 11:30 | CASEMGMT ---
Patient is to dc today. RA pulse ox @ rest is 1L NC. Recommend further oxygen testing with ambulation prior to dc. Pt prefers [facility] if home O2 needs set up prior to going home. Margret WOLFFN RN ACM
[2020-09-15 12:10] LABS: Bedside Glucose 255 mg/dL (70-110)
--- NOTE | 2020-09-16 15:09 | CASEMGMT ---
RN CM Note: attempted to contact patient for dc call. no answer and no message with name identifier. Margret FRANKLIN RN ACM
== END 2020-09-15 14:20 | disposition home or self-care (01) | DRG 177 ==
LOC: ED 08:18 → MS2 10:01
PROVIDERS: Admitting Provider Internal Medicine; Emergency Provider Emergency Medicine; PCP Family Medicine; Visit Provider Internal Medicine
DX: U07.1 COVID-19 (principal); J12.82 Pneumonia due to coronavirus disease 2019; N17.9 Acute kidney failure, unspecified; R09.02 Hypoxemia; E11.65 Type 2 diabetes mellitus with hyperglycemia; E78.5 Hyperlipidemia, unspecified; G40.909 Epilepsy, unspecified, not intractable, without status epilepticus; I10 Essential (primary) hypertension; Z79.899 Other long term (current) drug therapy; Z87.891 Personal history of nicotine dependence; Z79.84 Long term (current) use of oral hypoglycemic drugs
CPT/HCPCS: 36415; 71045; 80053; 82962; 84484; 85025; 85379; 86140; 87426; 87635; 93005; 94640; 97802; 99251; 99285; J7030; J7050; A4216; G0463; U0002

== ENCOUNTER 2022-10-28 06:57 | Emergency (ER) | payer MEDICAID, SELFPAY ==
[2022-10-28] VITALS (8 sets, daily range): BP systolic 140–161; BP diastolic 91–104; PULSE 85–109; RESP 16–20; TEMP 37.3; O2SAT 89–96; BMI 29.3
--- NOTE | 2022-10-28 07:32 | EDS_ITS ---
HPI History of Present Illness Chief Complaint: Shortness of Breath Informant: patient Onset/Context/Timing Onset: Days (5) Context: gradual Timing: Continuous Quality: Positive for Wheezing Worsened by: Nothing Relieved by: Nothing Associated Symptoms cough and yellow sputum; Negative for rhinorrhea, post nasal drip, ear pain, fe marco a, sore throat, chills or sweats Chest Pain: Positive for None Narrative Narrative: Patient presents with shortness of breath that has been getting progressively worse over the last 5 days. Patient states he feels like he is wheezing. Patient states it has been constant. Patient states that today his pulse o ximeter dropped to 89% while he was at home. Patient states he has been coughing and has had a slight yellow sputum production. Patient denies any fevers or chills. Patient denies any chest pain. Patient denies any sore throat or rhinorrhea. Patient states he has been taking [id number] cough medicine with minimal relief. PE Risk Factors: Negative for Cancer, OCP + Smoking + > 35, Prior DVT or PE, Recent immobilization, Recent surgery or Recent travel [facility] Medical History (Updated 10/28/22 @ 11:[address] Isael Joe, ) HTN (hypertension) Seizure Home Medications allopurinol 300 mg tablet 300 mg PO DAILY gout 04/21/19 [History Last Taken 09/11/20 04:30] cetirizine 10 mg capsule 10 mg PO DAILY 04/21/19 [History Last Taken Unknown] diltiazem HCl 120 mg capsule,extended release 24 hr 120 mg PO BID Check with primary doctor 04/21/19 [History Last Taken 09/11/20 04:30] levetiracetam 500 mg tablet 750 mg PO BID seizure 04/21/19 [History Last Taken 09/11/20 04:30] levothyroxine 25 mcg tablet 25 mcg PO DAILY 04/21/19 [History Last Taken Unknown] metformin 500 mg tablet 2 tab PO BID dm 04/21/19 [History Last Taken 09/11/20 04:30] rosuvastatin 5 mg tablet 5 mg PO DAILY 04/21/19 [History Last Taken Unknown] sertraline 100 mg tablet 100 mg PO DAILY 04/21/19 [History Last Taken Unknown] pantoprazole 40 mg tablet,delayed release 40 mg PO DAILY 09/11/20 [History Last Taken Unknown] apixaban 2.5 mg tablet 2.5 mg PO BID #14 tabs 09/15/20 [Rx Last Taken Unknown] dexamethasone 4 mg tablet 6 mg PO DAILY #5 tabs 09/15/20 [Rx Last Taken Unknown] glimepiride 4 mg tablet 4 mg PO DAILY@0800 #30 tabs 09/15/20 [Rx Last Taken U nknown] guaifenesin 1,200 mg tablet, extended release 12 hr 1,200 mg PO BID #14 tabs 09/15/20 [Rx Last Taken Unknown] albuterol sulfate 90 mcg/actuation aerosol inhaler (Ventolin HFA) 1 - 2 puff inhalation Q4H PRN PRN Wheezing ##1 10/28/22 [Rx Last Taken Unknown] Allergy/AdvReac Type Severity Reaction Status Date / Time No Known Allergies Allergy Verified 10/28/22 06:58 Surgical History (Updated 10/28/22 @ 07:[address] Isael Joe DO) History of surgical removal of pilonidal cyst History of tonsillectomy Social History Smoking Status: Former smoker ROS ROS ED Constitutional Constitutional ED: Denies chills or fever(s) Eyes Eyes: Denies blurry vision or change in vision ENT ENT ED: Denies rhinorrhea or sore throat Cardiovascular Cardiovascular: Denies chest pain or palpitations Respiratory/Chest Respiratory/Chest: Reports cough and dyspnea Gastrointestinal Gastrointestinal: Denies nausea or vomiting Genitourinary Genitourinary ED: Denies dysuria or hematuria Musculoskeletal Musculoskeletal: Reports back pain; Denies neck pain Integumentary Denies abscess or rash Neurologic Neurologic: Denies headache(s) or weakness Allergic/Immunologic Allergic/Immunologic ED: Denies mouth swelling or urticaria EXAM Physical Exam Const Vital Signs: 10/28/22 06:58 10/28/22 07:44 10/28/22 07:59 Temperature 99.1 F Temperature Source Oral Pulse Rate 102 H 85 Respiratory Rate 18 20 H Respiratory Effort Short of Breath Labored Respiratory Pattern Normal Blood Pressure 160/104 H Blood Pressure Mean 122 Pulse Ox 93 Oxygen Delivery Method Room Air Room Air Oxygen Flow Rate (L/min) 10/28/22 08:49 10/28/22 08:50 10/28/22 10:17 Temperature Temperature Source Pulse Rate 109 H 102 H Respiratory Rate 19 H 20 H Respiratory Effort Respiratory Pattern Blood Pressure 161/98 H 148/91 H Blood Pressure Mean 119 110 Pulse Ox 91 93 93 Oxygen Delivery Method Nasal Cannula Nasal Cannula Room Air Oxygen Flow Rate (L/min) 2 3 Positive well nourished and well developed General Appearance ED: well developed and NAD HEENT Reports moist mucous membranes Neck supple and no JVD Resp normal respiratory effort Auscultation: wheezes expiratory wheezes and throughout Cardio regular rate, regular rhythm and no murmurs GI normal to inspection, nondistended, normoactive bowel sounds and non-tender Palpation: soft Extremity normal to inspection General Extremety ED: Negative for edema or tenderness General Extremity: Negative for edema Neuro oriented x3, CN's II-XII intact bilaterally and no sensory deficits noted Sensorium / Orientation: alert Motor Exam: strength 5/5 throughout Psych mental status grossly normal Skin no rashes or lesions noted MDM MDM MDM Narrative Medical decision making narrative: Differential diagnosis includes pneumonia, viral bronchitis, viral upper respiratory infection, pulmonary embolism, cardiac dysrhythmia, cardiac ischemia and asthma. EKG will be obtained to assess for cardiac dysrhythmia and cardiac ischemia. CBC will be obtained to assess for leukocytosis and anemia. Basic metabolic profile will be obtained to assess for electrolyte abnormality and renal function. Chest x-ray will be obtained to assess for pneumonia. D-dimer will be obtained to assess for pulmonary embolism. High-sensitivity troponin will be obtained to assess for cardiac ischemia. COVID-19 rapid antigen will be obtained to assess for COVID infection. Influenza A and influenza B antigens will be obtained to assess for influenza infection. Lab Data Lab results narrative: BC was reviewed and was within normal limits. D-dimer was reviewed and was normal. Basic metabolic profile was reviewed and showed a mildly elevated glucose of 221 but was otherwise within normal limits. High-sensitivity troponin was reviewed and was normal. Labs: Laboratory Results - last 24 hr 10/28/22 10/28/22 10/28/22 08:05 08:05 08:05 WBC 6.8 RBC 5.04 Hgb 15.7 Hct 45.6 MCV 90.5 MCH 31.2 MCHC 34.4 RDW Std Deviation 44.1 H RDW Coeff of Jeremiah 13.4 Plt Count 181 MPV 10.5 Immature Gran % (Auto) 0.300 Neut % (Auto) 67.3 Lymph % (Auto) 21.1 [place] % (Auto) 9.1 Eos % (Auto) 1.9 Baso % (Auto) 0.3 Absolute Neuts (auto) 4.6 Absolute Lymphs (auto) 1.43 Nucleated RBC % 0 D-Dimer Quant (PE/DVT) < 0.27 L Sodium 142 Potassium 4.1 Chloride 111 H Carbon Dioxide 24.0 Anion Gap 7 BUN 13 Creatinine 1.11 Estim Creat Clear Calc 81.29 Est GFR (MDRD) Af Amer 90 Est GFR (MDRD) Non-Af 74 BUN/Creatinine Ratio 11.7 Glucose 221 H Calcium 9.2 Troponin I High Sens 4 Radiography Diagnostic Testing: Clinical Impression(s) from Imaging Studies Chest X-Ray 10/28/22 07:37 IMPRESSION: Stable elevation of the right hemidiaphragm. No acute abnormality is seen. Electronically Signed: Fredrick Herring MD at 8:28 EST , PA and lateral chest x-ray was obtained. There are 2 views. On my independent interpretation, lung salter are clear. There is normal cardiac silhouette. Bony thorax is normal. There is no acute process noted. Radiologist also interpreted the x-ray and agrees. EKG Initial EKG: Attestation: I personally reviewed and interpreted this EKG as follows: Interpretation: Sinus Rhythm (98) and Non-Specific ST Changes Comments: EKG was obtained. On my independent interpretation, it showed a normal sinus rhythm with a rate of 98. [place] interval, QRS interval, and QTc intervals were all normal. [place] was normal. There are nonspecific ST-T wave changes. Prior EKG tracings: available for review Prior: Unchanged (09/11/2020) Treatment and Re-Evaluation Narrative: Patient was given a DuoNeb aerosol here. Patient is feeling better on reevaluation. Patient was able to ambulate here in the emergency department and was able to maintain oxygen saturation of 93% and above. Patient was advised of his findings. Patient was instructed to drink plenty of fluids. Patient was instructed to follow-up with his primary care physician in 5 to 7 days. Patient was given a prescription for an albuterol inhaler to take as needed. Patient understands and is agreeable with the plan. All questions were answered. Discharge Plan Triage Chief Complaint: Shortness of Breath ED Provider: Isael Joe Dx/Rx/DC Orders Clinical Impression: Acute viral bronchitis, Shortness of breath Instructions: ED Bronchitis, No Antibiotic (Adult) Prescriptions: New albuterol sulfate [Ventolin HFA] 90 mcg/actuation HFA aerosol inhaler 1 - 2 puff inhalation Q4H PRN PRN (Reason: Wheezing) Qty: 1 0RF No Action metformin 500 MG tablet 2 tab PO BID levetiracetam 500 MG tablet 750 mg PO BID sertraline 100 MG tablet 100 mg PO DAILY levothyroxine 25 MCG tablet 25 mcg PO DAILY diltiazem HCl 120 MG capsule,extended release 24hr 120 mg PO BID allopurinol 300 MG tablet 300 mg PO DAILY rosuvastatin 5 MG tablet 5 mg PO DAILY cetirizine 10 MG capsule 10 mg PO DAILY pantoprazole 40 MG tablet,delayed release (DR/EC) 40 mg PO DAILY dexamethasone 4 MG tablet 6 mg PO DAILY Qty: 5 0RF glimepiride 4 MG tablet 4 mg PO DAILY@0800 Qty: 30 0RF guaifenesin 1,200 MG tablet 1,200 mg PO BID Qty: 14 0RF apixaban 2.5 MG tablet 2.5 mg PO BID Qty: 14 0RF Primary Care Provider: Lori Segundo Referrals: Lori Segundo DO [Primary Care Provider] - 3-5 Days Disposition Disposition: Home, Self Care
--- NOTE | 2022-10-28 07:36 | EKG12_ITS ---
Test Reason : Blood Pressure : / mmHG Vent. Rate : 098 BPM Atrial Rate : 098 BPM P-R Int : 124 ms QRS Dur : 074 ms QT Int : 334 ms P-R-T Axes : 044 040 073 degrees QTc Int : 426 ms Normal sinus rhythm Nonspecific T wave abnormality Abnormal ECG Confirmed by ROSEANN MUIR, JULIEN ([id number]), online editor STUART ALBRIGHT ([id number]) on 10/29/2022 12:42:43 PM Referred By: YUE Confirmed By:JULIEN WHITFIELD MD
--- NOTE | 2022-10-28 07:37 | RAD_ITS ---
STUDY: X-RAY CHEST REASON FOR EXAM: Male, 52 years old. Cough TECHNIQUE: PA and lateral views of the chest. COMPARISON: Comparison is made with prior study dated 09/11/2020. FINDINGS: EKG electrodes are seen. Stable elevation of the right hemidiaphragm. There is no demonstrated pleural abnormality. Normal size heart. Normal mediastinum and jackson. Normal visualized pulmonary arteries. There is atherosclerotic tortuosity of the aortic arch and descending thoracic aorta. Normal visualized thoracic spine. Normal visualized ribs, clavicles, and shoulders. There is no demonstrated abnormality of the visualized soft tissue structures of the upper abdomen. RAD/Chest PA and Lateral IMPRESSION: Stable elevation of the right hemidiaphragm. No acute abnormality is seen. Electronically Signed: Fredrick Herring MD at 8:28 EST ,
[2022-10-28] MEDS: Ipratropium/Albuterol Sulfate 3 ML AMPUL.NEB INHALATION (07:59)
[2022-10-28 08:20] LABS: Absolute Lymphocyte Count 1.43 X10^3/uL (0.83-4.51); Absolute Neutrophil Count 4.6 X10^3/uL (2.0-7.7); Basophil# 0.02 X10^3/uL; Basophil% 0.3 % (0-1); Eosinophil# 0.13 X10^3/uL; Eosinophils% 1.9 % (0-5); Hematocrit 45.6 % (40-54); Hemoglobin 15.7 g/dL (13.0-16.5); Lymphocyte # 1.43 X10^3/ul (0.83-4.51); Lymphocyte % 21.1 % (19-41); Mean Corp Hgb Conc 34.4 g/dL (32-36); Mean Corpuscular Hgb 31.2 pg (27.0-32.0); Mean Corpuscular Volume 90.5 fL (80-94); Mean Platelet Vol. 10.5 fl (6.2-12.0); Monocyte# 0.62 X10^3/uL; Monocyte% 9.1 % (0-10); NRBC Flagged by Analyzer 0 % (0-5); Neutrophil # 4.57 X10^3/uL (2.7-7.7); Neutrophil % 67.3 % (47-70); Platelet Count 181 K/mm3 (150-450); RBC Distribution Width CV 13.4 % (11.6-14.6); RBC Distribution Width SD 44.1 fl (35.1-43.9); Red Blood Count 5.04 M/mm3 (4.6-6.2); White Blood Count 6.8 K/mm3 (4.4-11.0)
[2022-10-28 08:29] LABS: D-Dimer Quantitative (DVT/PE) < 0.27 FEU/ug/m (0.27-0.49)
[2022-10-28 08:35] LABS: Anion Gap 7 (5-15); BUN 13 mg/dL (7-18); BUN/Creat Ratio 11.7 RATIO (10-20); Calcium,Total 9.2 mg/dL (8.5-10.1); Chloride 111 mmol/L (98-107); Creatinine, Serum 1.11 mg/dL (0.70-1.30); EST Glomerular Filtration Rate 74 mL/min (>60); Est Glom Filt Rate - Afr Amer 90 mL/min (>60); Estimated Creatinine Clearance 81.29 ml/min; Glucose 221 mg/dL (74-106); Potassium 4.1 mmol/L (3.5-5.1); Sodium Level 142 mmol/L (136-145); Troponin-I HS 4 pg/mL (3.0-78.0)
== END 2022-10-28 11:46 | disposition home or self-care (01) ==
PROVIDERS: Emergency Provider Emergency Medicine; PCP Family Medicine; Visit Provider Emergency Medicine
DX: J20.9 Acute bronchitis, unspecified (principal); I10 Essential (primary) hypertension; Z87.891 Personal history of nicotine dependence; Z20.822 Contact with and (suspected) exposure to COVID-19
CPT/HCPCS: 71046; 80048; 84484; 85025; 85379; 87428; 93005; 94640; 99285; A4216

== ENCOUNTER 2023-08-30 04:41 | Observation (INO) | payer MEDICAID, SELFPAY ==
[2023-08-30] VITALS (17 sets, daily range): BP systolic 102–173; BP diastolic 43–116; PULSE 94–132; RESP 16–24; TEMP 37.1–39.4; O2SAT 91–97; BMI 29.7
--- NOTE | 2023-08-30 05:02 | RAD_ITS ---
EXAM: XR CHEST, 1 VIEW CLINICAL INDICATION: near syncope TECHNIQUE: Frontal view of the chest. COMPARISON: Two-view chest 10/28/2022 FINDINGS: LUNGS AND PLEURAL SPACES: Unremarkable. No consolidation or edema. No pneumothorax. No effusion. HEART: Unremarkable. Cardiac silhouette not enlarged. MEDIASTINUM: Central airways and mediastinal contour are unremarkable. BONES/JOINTS: Unremarkable. No acute fracture. SOFT TISSUES: Unremarkable. RAD/Chest 1 View (Portable) IMPRESSION: No radiographic evidence of acute cardiopulmonary disease. Electronically Signed: Mohsen Boogie MD at 6:04 EST ,
--- NOTE | 2023-08-30 05:02 | EKG12_ITS ---
Test Reason : TACHY Blood Pressure : / mmHG Vent. Rate : 111 BPM Atrial Rate : 111 BPM P-R Int : 128 ms QRS Dur : 076 ms QT Int : 324 ms P-R-T Axes : 043 032 046 degrees QTc Int : 440 ms Sinus tachycardia Otherwise normal ECG Confirmed by CON MUIR, HANNA ([id number]), primer expeditor and drier CRAIG SILVER ([id number]) on 09/06/2023 8:09:30 AM Referred By: JUAN Confirmed By:HANNA ANDUJAR MD
--- NOTE | 2023-08-30 05:04 | ED.VIS.DYS ---
HPI History of Present Illness Chief Complaint: Shortness of Breath Informant: patient and EMS Narrative Narrative: 53-year-old male arriving to the emergency department via EMS with chief complaint of near syncope. Patient states for the past 2 days he has felt chills subjective fever occasional sweats nausea cough rhinorrhea body aches. He states that tonight he almost passed out on the floor of his bathroom. He notes that he has not been able to have much of a bowel movement the past couple days because he has an area on his rectum that hurts. He states it feels like a hemorrhoid that he has had before. He notes some rectal pain when he coughs and does not wish to sit down preferring to lay on his side he reports having a history of diabetes seizure disorder hypothyroidism and hypertension. He states he has not missed any recent medications [facility] Medical History Diabetes HTN (hypertension) Seizure Home Medications allopurinol 300 mg tablet 300 mg PO DAILY gout 04/21/19 [History Last Taken 09/11/20 04:30] diltiazem HCl 120 mg capsule,extended release 24 hr 120 mg PO BID Check with primary doctor 04/21/19 [History Last Taken 09/11/20 04:30] levetiracetam 500 mg tablet 750 mg PO BID seizure 04/21/19 [History Last Taken 09/11/20 04:30] levothyroxine 25 mcg tablet 25 mcg PO DAILY 04/21/19 [History Last Taken Unknown] metformin 500 mg tablet 2 tab PO BID dm 04/21/19 [History Last Taken 09/11/20 04:30] rosuvastatin 5 mg tablet 5 mg PO DAILY 04/21/19 [History Last Taken Unknown] sertraline 100 mg tablet 100 mg PO DAILY 04/21/19 [History Last Taken Unknown] pantoprazole 40 mg tablet,delayed release 40 mg PO DAILY 09/11/20 [History Last Taken Unknown] glimepiride 4 mg tablet 4 mg PO DAILY@0800 #30 tabs 09/15/20 [Rx Last Taken Unknown] Allergy/AdvReac Type Severity Reaction Status Date / Time No Known Allergies Allergy Verified 08/30/23 04:47 Surgical History History of surgical removal of pilonidal cyst History of tonsillectomy Social History Smoking Status: Former smoker ROS ROS ED Constitutional Constitutional ED: Reports chills, fever(s) and sweats; Denies weight loss Eyes Eyes: Denies change in vision or diplopia ENT ENT ED: Reports rhinorrhea; Denies ear pain or sore throat Cardiovascular Cardiovascular: Reports palpitations and other Details: Near syncope ; Denies chest pain, orthopnea or racing heartbeat Respiratory/Chest Respiratory/Chest: Reports cough; Denies dyspnea or orthopnea Gastrointestinal Gastrointestinal: Reports constipation, nausea and other Details: Rectal pain ; Denies abdominal pain, diarrhea or vomiting Genitourinary Genitourinary ED: Denies dysuria, hematuria or urinary frequency Musculoskeletal Musculoskeletal: Denies arthralgias or myalgias Integumentary Denies abscess or rash Neurologic Neurologic: Reports headache(s); Denies weakness Psychiatric Psychiatric: Denies anxiety, depression, suicidal ideation or suicidal thoughts Endocrine Endocrinology: Denies polydipsia, polyphagia or polyuria Allergic/Immunologic Allergic/Immunologic ED: Denies mouth swelling, tongue swelling or urticaria EXAM Physical Exam Const Vital Signs: 08/30/23 04:42 08/30/23 04:46 Temperature 99.2 F H Temperature Source Oral Pulse Rate 132 H Respiratory Rate 18 Respiratory Effort Short of Breath Blood Pressure 137/86 H Blood Pressure Mean 103 Pulse Ox 95 Positive well nourished and well developed General Appearance ED: well developed HEENT Reports normocephalic, head/scalp atraumatic and moist mucous membranes Eyes PERRL and EOMs intact bilaterally Neck no lymphadenopathy, supple and no JVD Resp normal respiratory effort and clear to auscultation bilaterally Cardio regular rate, regular rhythm and no murmurs Rate: tachycardic GI normal to inspection, nondistended, normoactive bowel sounds and non-tender Palpation: soft Narrative: Rectal examination demonstrates an area of tenderness of the anus at about 3 o'clock position. I I do not appreciate much fluctuance but there is some mild swelling. No thrombosed hemorrhoid. I do not appreciate anal fissure. I do not appreciate significant erythema of the perineal skin. Back/Spine no CVA tenderness and normal ROM Extremity normal to inspection General Extremety ED: Negative for edema General Extremity: Negative for edema Neuro oriented x3 and CN's II-XII intact bilaterally Sensorium / Orientation: alert Motor Exam: strength 5/5 throughout Psych mental status grossly normal Mood & Affect: Negative for depressed or tearful Skin no rashes or lesions noted and no wounds MDM MDM MDM Narrative Medical decision making narrative: White count is 8.8 with 88 neutrophils. D-dimer is elevated 1.85. Troponin is normal at 8. Glucose 181. Alkaline phosphatase 131. My independent interpretation of the plain film chest x-ray is no acute process. Patient received IV fluids as well as topical lidocaine for the rectal pain. Patient developed a fever of 100.8 orally and received Tylenol. Because of the elevated D-dimer and the unexplained tachycardia a CTA of the chest was ordered. However based on the physical exam of the rectum I wonder if the patient has a pelvic abscess/rectal abscess therefore CT of the pelvis with IV contrast was obtained. History & Record Review Discussion w/independent historian: Patient Additional record(s) reviewed:: Prior inpatient record, Prior ED visit and Prior labs Lab Data Attestation: I reviewed the patient's lab results. Labs: Laboratory Results - last 24 hr 08/30/23 04:55 WBC 8.8 RBC 5.04 Hgb 15.0 Hct 44.8 MCV 88.9 MCH 29.8 MCHC 33.5 RDW Std Deviation 41.4 RDW Coeff of Jeremiah 12.8 Plt Count 256 MPV 10.4 Immature Gran % (Auto) 0.300 Neut % (Auto) 88.0 H Lymph % (Auto) 5.9 [place] % (Auto) 3.9 Eos % (Auto) 1.4 Baso % (Auto) 0.5 Absolute Neuts (auto) 7.8 H Absolute Lymphs (auto) 0.52 L Nucleated RBC % 0 Differential Comment SCANNED D-Dimer Quant (PE/DVT) 1.85 H* Sodium 140 Potassium 3.4 L Chloride 107 Carbon Dioxide 21.0 Anion Gap 12 BUN 15 Creatinine 1.25 Estim Creat Clear Calc 71.38 Est GFR (MDRD) Af Amer 78 Est GFR (MDRD) Non-Af 64 BUN/Creatinine Ratio 12.0 Glucose 181 H Calcium 8.7 Total Bilirubin 0.60 AST 17 ALT 28 Alkaline Phosphatase 131 H Troponin I High Sens 8 Total Protein 7.6 Albumin 3.5 Globulin 4.1 Albumin/Globulin Ratio 0.9 Radiography Diagnostic Testing: Clinical Impression(s) from Imaging Studies Chest X-Ray 08/30/23 05:02 IMPRESSION: No radiographic evidence of acute cardiopulmonary disease. Electronically Signed: Mohsen Boogie MD at 6:04 EST Reading Location ID and State: [facility] / [place] Tel , Service support , EKG Initial EKG: Attestation: I personally reviewed and interpreted this EKG as follows: Comments: Sinus tachycardia with a ventricular rate of 133 bpm. Discharge Plan Triage Chief Complaint: Shortness of Breath ED Provider: Sea Bustillo Dx/Rx/DC Orders Clinical Impression: Tachycardia, Rectal pain, Acute febrile illness Prescriptions: No Action metformin 500 MG tablet 2 tab PO BID levetiracetam 500 MG tablet 750 mg PO BID sertraline 100 MG tablet 100 mg PO DAILY levothyroxine 25 MCG tablet 25 mcg PO DAILY diltiazem HCl 120 MG capsule,extended release 24hr 120 mg PO BID allopurinol 300 MG tablet 300 mg PO DAILY rosuvastatin 5 MG tablet 5 mg PO DAILY pantoprazole 40 MG tablet,delayed release (DR/EC) 40 mg PO DAILY glimepiride 4 MG tablet 4 mg PO DAILY@0800 Qty: 30 0RF Primary Care Provider: Lori Segundo Referrals: Lori Segundo DO [Primary Care Provider] -
[2023-08-30 05:15] LABS: Absolute Lymphocyte Count 0.52 X10^3/uL (0.83-4.51); Absolute Neutrophil Count 7.8 X10^3/uL (2.0-7.7); Basophil# 0.04 X10^3/uL; Basophil% 0.5 % (0-1); Eosinophil# 0.12 X10^3/uL; Eosinophils% 1.4 % (0-5); Hematocrit 44.8 % (40-54); Lymphocyte # 0.52 X10^3/ul (0.83-4.51); Lymphocyte % 5.9 % (19-41); Mean Corp Hgb Conc 33.5 g/dL (32-36); Mean Corpuscular Hgb 29.8 pg (27.0-32.0); Mean Corpuscular Volume 88.9 fL (80-94); Mean Platelet Vol. 10.4 fl (6.2-12.0); Monocyte# 0.34 X10^3/uL; Monocyte% 3.9 % (0-10); NRBC Flagged by Analyzer 0 % (0-5); Neutrophil # 7.77 X10^3/uL (2.7-7.7); POSITIVE DIFFERENTIAL YES; Platelet Count 256 K/mm3 (150-450); RBC Distribution Width CV 12.8 % (11.6-14.6); RBC Distribution Width SD 41.4 fl (35.1-43.9); Red Blood Count 5.04 M/mm3 (4.6-6.2); White Blood Count 8.8 K/mm3 (4.4-11.0)
[2023-08-30 05:16] LABS: Differential Indicated SCAN CRITERIA MET
[2023-08-30 05:31] LABS: D-Dimer Quantitative (DVT/PE) 1.85 FEU/ug/m (0.27-0.49)
[2023-08-30] MEDS: 0.9% Normal Saline (1000mL) 1,000 ML 1000 ML IV (05:33)
[2023-08-30] MEDS: Lidocaine Jelly 2% 20 ML Syringe (URO-JET) 1 APPLIC TOPICAL (05:34)
[2023-08-30 05:45] LABS: Differential Comment SCANNED
[2023-08-30 05:49] LABS: ALB/GLOB Ratio 0.9 RATIO (0.9-2.4); AST(SGOT) 17 U/L (15-37); Alanine Aminotransfer ALT/SGPT 28 U/L (16-61); Albumin, Serum 3.5 g/dL (3.2-5.0); Alkaline Phosphatase 131 U/L (45-117); Anion Gap 12 (5-15); BUN 15 mg/dL (7-18); Calcium,Total 8.7 mg/dL (8.5-10.1); Chloride 107 mmol/L (98-107); Creatinine, Serum 1.25 mg/dL (0.70-1.30); EST Glomerular Filtration Rate 64 mL/min (>60); Est Glom Filt Rate - Afr Amer 78 mL/min (>60); Estimated Creatinine Clearance 71.38 ml/min; Globulin 4.1 g/dL (2.2-4.2); Glucose 181 mg/dL (74-106); Potassium 3.4 mmol/L (3.5-5.1); Protein, Total 7.6 g/dL (6.4-8.2); Sodium Level 140 mmol/L (136-145); Troponin-I HS 8 pg/mL (3.0-78.0)
--- NOTE | 2023-08-30 06:59 | CT_ITS ---
EXAM: CT ANGIOGRAPHY CHEST WITHOUT AND WITH INTRAVENOUS CONTRAST CLINICAL INDICATION: pulmonary embolism TECHNIQUE: Helically acquired angiography images were obtained of the chest without and with intravenous contrast. This CT exam was performed using one or more of the following dose reduction techniques: automated exposure control, adjustment of the mA and/or kV according to patient size, and/or use of iterative reconstruction technique. MIP reconstructed images were created and reviewed. CONTRAST: IV 100mL Isovue-370 RADIATION DOSE: CTDIvol = 18.46 mGy, DLP = 1718.15 mGy-cm COMPARISON: No relevant prior studies available. FINDINGS: PULMONARY ARTERIES: Unremarkable. Normal in caliber. No evidence of pulmonary embolism. AORTA: Unremarkable. Normal in caliber. No evidence of dissection. GREAT VESSELS OF AORTIC ARCH: Unremarkable. Normal in caliber. No evidence of dissection. LUNGS AND PLEURAL SPACES: Mild bilateral dependent atelectasis. No mass. No pleural effusion or thickening. No pneumothorax. HEART: Unremarkable. Heart size is normal. No pericardial effusion. No significant coronary artery calcifications. MEDIASTINUM: Unremarkable. No mediastinal or hilar adenopathy. Esophagus is unremarkable. No hiatal hernia. THYROID: Unremarkable. No thyroid lesions. BONES/JOINTS: Degenerative changes of the spine. No suspicious lytic or blastic abnormality. CT/CTA Chest W/WO Contrast IMPRESSION: No pulmonary embolism or other acute abnormality identified in the chest. Electronically Signed: Mohsen Boogie MD at 8:01 EST ,
--- NOTE | 2023-08-30 07:09 | CT_ITS ---
EXAM: CT ABDOMEN AND PELVIS WITH INTRAVENOUS CONTRAST CLINICAL INDICATION: pelvic pain TECHNIQUE: Helically acquired images were obtained of the abdomen and pelvis with intravenous contrast. This CT exam was performed using one or more of the following dose reduction techniques: automated exposure control, adjustment of the mA and/or kV according to patient size, and/or use of iterative reconstruction technique. CONTRAST: IV 100mL Isovue-370 RADIATION DOSE: CTDIvol = 18.46 mGy, DLP = 1718.15 mGy-cm COMPARISON: No relevant prior studies available. FINDINGS: LOWER THORAX: Unremarkable. Lung bases are clear. No cardiomegaly. No significant pericardial effusion. ABDOMEN: LIVER: Hepatomegaly with fatty infiltration. GALLBLADDER AND BILE DUCTS: Unremarkable. No calcified gallstones. No gallbladder distention or wall edema. No intra- or extrahepatic biliary ductal dilation. PANCREAS: Unremarkable. No focal cystic or solid mass. SPLEEN: Unremarkable. Normal size without focal cystic or solid mass. ADRENALS: Unremarkable. No nodules. KIDNEYS AND URETERS: Unremarkable. Normal renal size and position. No ureteral stone or renal obstruction. STOMACH AND BOWEL: There is a perirectal fluid collection identified at the anorectal junction, measuring 4 x 3.3 x 2.2 cm. Diverticular disease of the colon but no diverticulitis. No stomach or bowel distention. PELVIS: APPENDIX: The appendix is normal. BLADDER: Unremarkable. REPRODUCTIVE: Unremarkable as visualized. No mass. ABDOMEN and PELVIS: INTRAPERITONEAL SPACE: Unremarkable. No ascites or other fluid collection. No free air. BONES/JOINTS: Degenerative changes of the spine. No suspicious lytic or blastic abnormality. SOFT TISSUES: No discrete abdominal or pelvic wall hernia. VASCULATURE: Unremarkable. Abdominal aorta is non-dilated. LYMPH NODES: Unremarkable. No enlarged lymph nodes. CT/Abdomen/Pelvis W IV Cont ONLY IMPRESSION: There is a perirectal fluid collection concerning for abscess identified at the anorectal junction, measuring 4 x 3.3 x 2.2 cm. Electronically Signed: Mohsen Boogie MD at 7:59 EST ,
[2023-08-30] MEDS: Acetaminophen 500 MG Tablet 1000 MG PO (07:34)
--- NOTE | 2023-08-30 08:00 | CT_ITS ---
INDICATION: As described above unchanged since prior exam EVAL EXAMINATION: CT PELVIS BONE - CT Pelvis W/O Contrast Injection TECHNIQUE: Routine noncontrast bone CT protocol was performed of the pelvis. 2-D reformats were performed by the technologist. A radiation dose optimization technique was used for this scan. IV Contrast dosage and agent: None. RADIATION DOSAGE (If Supplied By Facility): CTDIvol = ( 13.05 ) mGy, DLP = ( 443.8 ) mGycm COMPARISON: CT scan of the abdomen and pelvis of the same day. FINDINGS: SOFT TISSUES: Persistent mucosal thickening essentially unchanged since prior exam measuring about 4.5 x 3 x 1.8 cm. No radiopaque foreign body. Contrast seen in the bladder. Mild thickening of the sigmoid colon diverticulosis without evidence of acute diverticulitis. No free fluid is seen. BONES/JOINTS: The osseous structures are essentially unremarkable. CT/Limited or Localized F/U CT IMPRESSION: Perirectal abscess as described above unchanged since prior exam. Electronically Signed: Memo Noel MD at 9:01 EST ,
[2023-08-30] MEDS: 0.9% Normal Saline (1000mL) 1,000 ML 999 ML IV (08:38)
[2023-08-30] MEDS: fentaNYL 100 MCG/2 ML Ampul 50 MCG IV (08:38)
[2023-08-30] MEDS: Piperacil/Tazobactam 4.5 GM in 0.9% Normal Saline (100mL MB+) 100 ML IV (08:39)
[2023-08-30 09:11] LABS: Lactic Acid 1.4 mmol/L (0.4-1.9)
--- NOTE | 2023-08-30 09:46 | NURSING ---
CALLED [facility] TALKED TO YOLANDA. SHE IS TALKING TO DR KENNY
--- NOTE | 2023-08-30 09:46 | NURSING ---
FAXED FACESHEET TO [facility]
--- NOTE | 2023-08-30 10:45 | NURSING ---
MED SURG OBS ROBOTHAM PERIANAL ABSCESS
--- NOTE | 2023-08-30 10:46 | HP.PCM.SX_ITS ---
HPI - General HPI Narrative TAMANNA ALEXANDRA, is a 53 M who presents to the ER due to rectal pain for about the last day and a half. This has gotten worse. Patient has pain with bowel movements or with sitting. Patient states he has not had much bowel movements for the last couple days. Patient states he has had 2 previous colonoscopies one was about a year ago at [place] normal per patient. Patient had normal white blood cell count with a left shift?patient did receive Zosyn IV in the ER. Patient CT abdomen pelvis which showed a perirectal abscess at the mid to lower rectum. CTA was negative for PE. Patient states never had anything like this previously denies any history of Crohn's or UC personally or family. Patient's past medical history for diabetes type 2 also had a seizure around the time of diagnosis so he is on medication for that but no definitive cause of the seizure wonder if it could be related to his initial diagnosis of diabetes. [facility] Medical History Diabetes HTN (hypertension) Seizure Home Medications allopurinol 300 mg tablet 300 mg PO DAILY gout 04/21/19 [History Last Taken 09/11/20 04:30] diltiazem HCl 120 mg capsule,extended release 24 hr 120 mg PO BID Check with primary doctor 04/21/19 [History Last Taken 09/11/20 04:30] levetiracetam 500 mg tablet 750 mg PO BID seizure 04/21/19 [History Last Taken 09/11/20 04:30] levothyroxine 25 mcg tablet 25 mcg PO DAILY 04/21/19 [History Last Taken Unknown] metformin 500 mg tablet 2 tab PO BID dm 04/21/19 [History Last Taken 09/11/20 04:30] rosuvastatin 5 mg tablet 5 mg PO DAILY 04/21/19 [History Last Taken Unknown] sertraline 100 mg tablet 100 mg PO DAILY 04/21/19 [History Last Taken Unknown] pantoprazole 40 mg tablet,delayed release 40 mg PO DAILY 09/11/20 [History Last Taken Unknown] glimepiride 4 mg tablet 4 mg PO DAILY@0800 #30 tabs 09/15/20 [Rx Last Taken Unknown] Allergy/AdvReac Type Severity Reaction Status Date / Time No Known Allergies Allergy Verified 08/30/23 04:47 Surgical History History of surgical removal of pilonidal cyst History of tonsillectomy Social History Smoking Status: Former smoker Vital Signs Vital Signs Vital Signs: 08/30/23 04:42 08/30/23 04:46 08/30/23 08:20 Temperature 99.2 F H Temperature Source Oral Pulse Rate 132 H 104 H Respiratory Rate 18 16 Respiratory Effort Short of Breath Blood Pressure 137/86 H 102/63 Blood Pressure Mean 103 76 Pulse Ox 95 96 Oxygen Delivery Method Room Air Weight Weight: 207 lb 10.807 oz Body Mass Index (BMI) 29.7 Physical Exam Const alert, oriented x3 and no apparent distress HEENT normocephalic and head/scalp atraumatic Resp normal respiratory effort Cardio regular rate GI soft to palpation and non-tender; Negative for non-distended GI Narrative: ALEXIS: No obvious fluctuance externally some fluctuance at 12:00 inside the rec tanna, very tender, no mass on exam. No gross blood. Palpation: Negative for guarding Extremity no clubbing, cyanosis or edema Skin no rashes or lesions noted Neuro CN's II-XII intact bilaterally Psych mental status grossly normal Results Lab / Micro Data 08/30/23 04:55 08/30/23 04:55 Labs: Laboratory Results - last 24 hr 08/30/23 04:55: WBC 8.8, RBC 5.04, Hgb 15.0, Hct 44.8, MCV 88.9, MCH 29.8, MCHC 33.5, RDW Std Deviation 41.4, RDW Coeff of Jeremiah 12.8, Plt Count 256, MPV 10.4, Immature Gran % (Auto) 0.300, Neut % (Auto) 88.0 H, Lymph % (Auto) 5.9 L, Brown % (Auto) 3.9, Eos % (Auto) 1.4, Baso % (Auto) 0.5, Absolute Neuts (auto) 7.8 H, Absolute Lymphs (auto) 0.52 L, Nucleated RBC % 0, Differential Comment SCANNED, D-Dimer Quant (PE/DVT) 1.85 H*, Sodium 140, Potassium 3.4 L, Chloride 107, Carbon Dioxide 21.0, Anion Gap 12, BUN 15, Creatinine 1.25, Estim Creat Clear Calc 71.38, Est GFR (MDRD) Af Amer 78, Est GFR (MDRD) Non-Af 64, BUN/Creatinine Ratio 12.0, Glucose 181 H, Calcium 8.7, Total Bilirubin 0.60, AST 17, ALT 28, Alkaline Phosphatase 131 H, Troponin I High Sens 8, Total Protein 7.6, Albumin 3.5, Globulin 4.1, Albumin/Globulin Ratio 0.9 08/30/23 08:25: Lactic Acid 1.4 Micro: Microbiology 08/30/23 05:31 Nasal Secretion SARS-CoV-2 & FLU Antigen (Rapid) - Final Imagaing Radiology Impression Chest X-Ray 08/30/23 05:02 IMPRESSION: No radiographic evidence of acute cardiopulmonary disease. Electronically Signed: Mohsen Boogie MD at 6:04 EST Reading Location ID and State: [facility] / [place] Tel , Service support , Chest CTA 08/30/23 06:59 IMPRESSION: No pulmonary embolism or other acute abnormality identified in the chest. Electronically Signed: Mohsen Boogie MD at 8:01 EST Reading Location ID and State: [facility] / [place] Tel , Service support , Abdomen/Pelvis CT 08/30/23 07:09 IMPRESSION: There is a perirectal fluid collection concerning for abscess identified at the anorectal junction, measuring 4 x 3.3 x 2.2 cm. Electronically Signed: Mohsen Boogie MD at 7:59 EST Reading Location ID and State: [facility] / [place] Tel , Service support , Limited or Localized CT 08/30/23 08:00 IMPRESSION: Perirectal abscess as described above unchanged since prior exam. Electronically Signed: Memo Noel MD at 9:01 EST , Assessment & Plan Assessment/Plan (1) Perirectal abscess: PLAN: Plan Plan for exam under anesthesia and incision and drainage of perirectal abscess. Discussed the procedure including but not limited to bleeding, infection, need for further surgery the patient and his . Patient no further questions this time. Roslyn Olivares M.D. Pager: [phone] [facility] [address] [place] [address], [address] [place] [address] Office: [phone]
--- NOTE | 2023-08-30 11:11 | ED.RN ---
spoke with Nika, charge in [facility]. will call when they know surgery time for pt.
--- NOTE | 2023-08-30 11:25 | ED.RN ---
surgery states ok to bring pt. will do prep in their department.
[2023-08-30] MEDS: Lactated Ringers 1,000 ML 15 ML IV (11:59)
[2023-08-30] MEDS: Bupivacaine Mpf 0.5% 30 ML VIAL (14:32)
[2023-08-30] MEDS: Dibucaine 30 GM Tube 1 APPLIC (14:54)
--- NOTE | 2023-08-30 15:17 | PCM.OPRPT ---
Report of Operation Date of Procedure: 08/30/23 Pre-Operative Diagnosis: Perirectal abscess near anal verge Post-Operative Diagnosis: Same Surgery/Procedure Performed:: Examined anesthesia, incision and drainage of perirectal abscess possible supralevator Surgeon: Roslyn Olivares Type of Anesthesia: General/Supplemental Anesthesiologist: Isael Ojeda Special Medications: Zosyn 3.375 g IV x 1 given in ER for rectal abscess Specimen's removed: Anaerobic and aerobic cultures of perirectal abscess Estimated Blood Loss (mL): 20 cc Description of Procedure: Patient is brought in operating room and placed supine operating table. Timeout was completed verifying correct patient, procedure, site, positioning, special, prior to beginning procedure. General anesthesia was induced. Local anesthesia with bupivacaine 0.5% was used during the case. Patient was positioned in the right lateral decubitus position with appropriate padding. Bedside ultrasound did not show any communication with the skin prior to prepping. The rectum was prepped draped in usual sterile fashion with Betadine. Hill-Sylvester retractor was used and the fluctuant area was seen in an 18-gauge needle was used to drain the purulent fluid and about 20 cc. This was sent for culture. Scalpel was used to enlarge the needle hole and a hemostat was placed additional purulent bloody fluid was obtained. This was irrigated with saline using a 60 cc syringe and Angiocath. Patient did have some bleeding post procedure a figure of 2-0 Vicryl was placed proximal to this area. Hemostasis was improved. Large Gelfoam was rolled up with butacaine and placed in the rectum. ABD pad and mesh panties were placed. Patient tolerated procedure well was taken to the postanesthesia care in stable condition. Complications none
[2023-08-30 16:12] LABS: Bedside Glucose 152 mg/dL (74-106)
--- NOTE | 2023-08-30 16:33 | CON.PCM.HO_ITS ---
Assessment & Plan Assessment/Plan (1) Sinus tachycardia: PLAN: Plan Patient is a 53-year-old male who presented to [facility] ED on 08/24/2023 for perirectal pain and fevers. Found on CT imaging in the ED to have a perirectal abscess, admitted under general surgery. S/p incision and drainage with Dr. Olivares on afternoon of 08/30. Medicine consulted postoperatively for medical management. 1. Sinus tachycardia Known history of sinus tachycardia, with reported to resting heart rate in the 90s to 100s. On home diltiazem 120 mg twice daily. Heart rate in 120s consistently postoperatively in the PACU, blood pressure stable, patient asymptomatic. On arrival to floor from PACU, heart rate around 110. EKG at that time showed sinus tachycardia with heart rate 111, no other abnormalities. Suspect mild increase in tachycardia from patient's baseline due to missing home diltiazem dose on morning of admission, as well as from postoperative stress state. Notably, CTA chest in ED was negative for PE and patient received 2 L of IV fluids in ED prior to procedure. ? Continue cardiac monitoring. Continue home diltiazem, will give home dose evening. No need for further IV fluids or as needed rate controlling agents at this time. 2. Perirectal abscess with fevers ? General surgery primary. S/p I&D of abscess on 08/30. Suspect postoperative fevers are due to infection as well as postoperative stress state. On IV Zosyn per general surgery. Further management per surgery. Chronic medical conditions: ? Type 2 diabetes mellitus: On home metformin 500 mg twice daily. Sliding scale insulin while inpatient. ? Hyperlipidemia: Continue home statin. ? Depression: Continue home sertraline. ? GERD: Continue home PPI. ? Hypothyroidism: Continue home Synthroid. ? Seizure disorder: Continue home levetiracetam. ? Gout: Continue home allopurinol. DVT prophylaxis: Low risk, ambulate CODE STATUS: Full code, unverified Expected disposition: Home, 1 to 2 days Total clinical time spent by myself addressing the patient's medical issues, reviewing all the data, and collaborating with patient's care team: 35 minutes. HPI Consult Data Date of Consult: 08/30/23 HPI Narrative HPI Narrative: TAMANNA ALEXANDRA, is a 53 M who presented to [facility] ED on 08/30/2023 with rectal pain and fevers. Patient was found on CT imaging to have a perirectal abscess. Was admitted to general surgery. S/p incision and drainage of abscess under general anesthesia with Dr. Olivares on afternoon of 08/30. Patient tolerated procedure well. Patient was found to have sinus tachycardia to the 120s consistently postoperatively, medicine was consulted for medical management. Patient was seen at the bedside in his room on [facility] s [place] after arriving there from the PACU. Patient's was with him in the room. Patient was alert and oriented, had mostly recovered from anesthesia by that point. Patient reported mild rectal pain at that time but otherwise denied any acute pain or discomfort. Patient reported feeling a bit fatigued and drowsy but otherwise felt like he was close to his baseline. Patient stated that he has a known history of sinus tachycardia, takes diltiazem twice daily at home for tachycardia and hypertension. Denies any history of atrial fibrillation. States he frequently was found at office visits and emergency department visits to have heart rate in the 90s to 110s at rest. Does not check his heart rate at home regularly. Has been taking his home diltiazem as prescribed, however he did not receive his morning dose of diltiazem today. He currently denies any palpitations. Denies any history of heart failure. Denies any other symptoms at this time. [facility] Medical History Diabetes HTN (hypertension) Seizure Home Medications allopurinol 300 mg tablet 300 mg PO DAILY gout 04/21/19 [History Last Taken 09/11/20 04:30] diltiazem HCl 120 mg capsule,extended release 24 hr 120 mg PO BID Check with primary doctor 04/21/19 [History Last Taken 09/11/20 04:30] levetiracetam 500 mg tablet 750 mg PO BID seizure 04/21/19 [History Last Taken 09/11/20 04:30] levothyroxine 25 mcg tablet 25 mcg PO DAILY 04/21/19 [History Last Taken Unk nown] metformin 500 mg tablet 2 tab PO BID dm 04/21/19 [History Last Taken 09/11/20 04:30] rosuvastatin 5 mg tablet 5 mg PO DAILY 04/21/19 [History Last Taken Unknown] sertraline 100 mg tablet 100 mg PO DAILY 04/21/19 [History Last Taken Unknown] pantoprazole 40 mg tablet,delayed release 40 mg PO DAILY 09/11/20 [History Last Taken Unknown] glimepiride 4 mg tablet 4 mg PO DAILY@0800 #30 tabs 09/15/20 [Rx Last Taken Unknown] Allergy/AdvReac Type Severity Reaction Status Date / Time No Known Allergies Allergy Verified 08/30/23 04:47 Surgical History History of surgical removal of pilonidal cyst History of tonsillectomy Social History Smoking Status: Former smoker ROS Constitutional Constitutional: Reports fatigue; Denies chills, fever(s) or weakness Eyes Eyes: Denies change in vision Cardiovascular Cardiovascular: Denies chest pain, dyspnea on exertion, edema, lightheadedness, palpitations or rapid heart rate Respiratory/Chest Respiratory/Chest: Denies cough Gastrointestinal Gastrointestinal: Reports other Details: Mild perirectal pain noted. ; Denies abdominal pain, constipation, diarrhea or nausea Genitourinary Genitourinary: Denies dysuria Musculoskeletal Musculoskeletal: Denies arthralgias or back pain Neurologic Neurologic: Denies confusion, dizziness, focal weakness, headache(s), numbness or paresthesias Physical Exam Const alert, oriented x3, no apparent distress and average body habitus Constitutional Narrative: Pleasant middle-age male, sitting comfortably in bed, conversing normally, mildly fatigued appearing but otherwise in no acute distress. General Appearance: cooperative and comfortable HEENT normocephalic, head/scalp atraumatic, hearing grossly normal bilaterally, nasal mucous membranes and turbinates normal and moist oral mucous membranes Eyes PERRL, EOMs intact bilaterally and conjunctivae normal Neck full ROM, no lymphadenopathy and supple Lymph Lymphatic: no lymphadenopathy noted Chest inspection of chest normal Resp normal respiratory effort, normal air movement, no use of accessory muscles and clear to auscultation bilaterally Resp Narrative: Satting well on 4 L nasal cannula postoperatively, no increased work of breathing noted. Cardio no murmurs and peripheral pulses 2+ throughout Cardio Narrative: Sinus tachycardia. GI normal to inspection, nondistended, normoactive bowel sounds, soft to palpation, non-tender and non-distended Back/Spine normal ROM Extremity normal to inspection, full ROM and no pedal edema Skin no rashes or lesions noted Neuro no focal motor deficits and no sensory deficits noted Speech: speech normal Psych mental status grossly normal Lab / Micro Data 08/30/23 04:55 08/30/23 04:55 Labs: Laboratory Results - last 24 hr 08/30/23 04:55: WBC 8.8, RBC 5.04, Hgb 15.0, Hct 44.8, MCV 88.9, MCH 29.8, MCHC 33.5, RDW Std Deviation 41.4, RDW Coeff of Jeremiah 12.8, Plt Count 256, MPV 10.4, Immature Gran % (Auto) 0.300, Neut % (Auto) 88.0 H, Lymph % (Auto) 5.9 L, Stanley % (Auto) 3.9, Eos % (Auto) 1.4, Baso % (Auto) 0.5, Absolute Neuts (auto) 7.8 H, Absolute Lymphs (auto) 0.52 L, Nucleated RBC % 0, Differential Comment SCANNED, D-Dimer Quant (PE/DVT) 1.85 H*, Sodium 140, Potassium 3.4 L, Chloride 107, Carbon Dioxide 21.0, Anion Gap 12, BUN 15, Creatinine 1.25, Estim Creat Clear Calc 71.38, Est GFR (MDRD) Af Amer 78, Est GFR (MDRD) Non-Af 64, BUN/Creatinine Ratio 12.0, Glucose 181 H, Calcium 8.7, Total Bilirubin 0.60, AST 17, ALT 28, Al kaline Phosphatase 131 H, Troponin I High Sens 8, Total Protein 7.6, Albumin 3.5, Globulin 4.1, Albumin/Globulin Ratio 0.9 08/30/23 08:25: Lactic Acid 1.4 08/30/23 15:52: POC Glucose 152 H Micro: Microbiology 08/30/23 05:31 Nasal Secretion SARS-CoV-2 & FLU Antigen (Rapid) - Final Imagaing Radiology Impression Chest X-Ray 08/30/23 05:02 IMPRESSION: No radiographic evidence of acute cardiopulmonary disease. Electronically Signed: Mohsen Boogie MD at 6:04 EST , Chest CTA 08/30/23 06:59 IMPRESSION: No pulmonary embolism or other acute abnormality identified in the chest. Electronically Signed: Mohsen Boogie MD at 8:01 EST Reading Location ID and State: [facility] / [place] Tel , Service support , Abdomen/Pelvis CT 08/30/23 07:09 IMPRESSION: There is a perirectal fluid collection concerning for abscess identified at the anorectal junction, measuring 4 x 3.3 x 2.2 cm. Electronically Signed: Mohsen Boogie MD at 7:59 EST Reading Location ID and State: [facility] / [place] Tel , Service support , Limited or Localized CT 08/30/23 08:00 IMPRESSION: Perirectal abscess as described above unchanged since prior exam. Electronically Signed: Memo Noel MD at 9:01 EST , Charges/Coding Visit Charges Inpatient E&M: 98744 Subs Hosp L2
[2023-08-30] MEDS: Acetaminophen 325 MG Tablet 650 MG PO ×2 (16:40→21:23)
--- NOTE | 2023-08-30 17:13 | EKG12_ITS ---
Test Reason : DYSRHYTHMIA Blood Pressure : / mmHG Vent. Rate : 133 BPM Atrial Rate : 133 BPM P-R Int : 116 ms QRS Dur : 072 ms QT Int : 312 ms P-R-T Axes : 048 052 066 degrees QTc Int : 464 ms Sinus tachycardia Nonspecific ST abnormality Abnormal ECG When compared with ECG of 28-OCT-2022 07:45, Nonspecific T wave abnormality no longer evident in Lateral leads Confirmed by CON MUIR, HANNA ([id number]), editorial assistant STUART ALBRIGHT ([id number]) on 09/06/2023 10:13:33 AM Referred By: SKYLA Confirmed By:HANNA ANDUJAR MD
[2023-08-30] MEDS: 0.9% Normal Saline (1000mL) 1,000 ML 120 ML IV (18:00)
[2023-08-30] MEDS: Pantoprazole Sodium 40 MG in 0.9% Normal Saline (100mL MB+) 100 ML 330 MG IV (18:01)
[2023-08-30 18:25] LABS: Bedside Glucose 136 mg/dL (74-106)
[2023-08-30] MEDS: Piperacil/Tazobactam 3.375 GM in 0.9% Normal Saline (50mL MB+) 50 ML IV ×2 (18:55→23:03)
[2023-08-30] MEDS: dilTIAZem CD 120 MG Capsule PO (21:07)
[2023-08-30] MEDS: levETIRAcetam 750 MG Tablet PO (21:07)
[2023-08-30] MEDS: oxyCODONE 5 MG Tablet PO (21:27)
[2023-08-30 22:08] LABS: Bedside Glucose 98 mg/dL (74-106)
[2023-08-31] VITALS (11 sets, daily range): BP systolic 121–182; BP diastolic 75–109; PULSE 95–128; RESP 16–28; TEMP 36.6–38.2; O2SAT 86–94
[2023-08-31] MEDS: 0.9% Saline Lock 10 ML Syringe IV (02:19)
[2023-08-31] MEDS: 0.9% Normal Saline (1000mL) 1,000 ML 120 ML IV ×3 (02:20→21:37)
[2023-08-31] MEDS: Piperacil/Tazobactam 3.375 GM in 0.9% Normal Saline (50mL MB+) 50 ML IV ×3 (06:34→21:37)
[2023-08-31] MEDS: Acetaminophen 325 MG Tablet 650 MG PO ×3 (06:34→23:21)
[2023-08-31] MEDS: Levothyroxine 25 MCG TABLET PO (06:34)
--- NOTE | 2023-08-31 07:00 | PN.SURG_ITS ---
Subjective Subjective Denies abdominal pain/rectal pain Objective Data Objective Data Vital Signs: Vital Signs Temp Pulse Resp BP Pulse Ox O2 Del Method O2 Flow Rate 99.5 F H 109 H 16 141/89 H 94 Nasal Cannula 2 08/31/23 05:09 08/31/23 05:09 08/31/23 05:09 08/31/23 05:09 08/31/23 05:09 08/31/23 05:09 08/31/23 05:09 Oxygen Flow Rate (L/min) 2 Oxygen Delivery Method Nasal Cannula Weight: 207 lb 10.807 oz Body Mass Index (BMI) 29.7 Intake & Output: Intake and Output for Last 24 Hours 08/29/23 08/30/23 08/31/23 23:59 23:59 23:59 Intake Total 2356.5 / 2356.5 1050 / 1050 Output Total 1325 / 1325 350 / 350 Balance 1031.5 / 1031.5 700 / 700 Lab / Micro Data 08/31/23 06:00 08/31/23 06:00 Labs: Laboratory Results - last 24 hr 08/30/23 08:25: Lactic Acid 1.4 08/30/23 15:52: POC Glucose 152 H 08/30/23 17:58: POC Glucose 136 H 08/30/23 21:09: POC Glucose 98 Micro: Microbiology 08/30/23 05:31 Nasal Secretion SARS-CoV-2 & FLU Antigen (Rapid) - Final Radiography Diagnostic Testing: Radiology Impression Chest CTA 08/30/23 06:59 IMPRESSION: No pulmonary embolism or other acute abnormality identified in the chest. Electronically Signed: Mohsen Boogie MD at 8:01 EST Reading Location ID and State: [address] [place] [address] Tel , Service support , Abdomen/Pelvis CT 08/30/23 07:09 IMPRESSION: There is a perirectal fluid collection concerning for abscess identified at the anorectal junction, measuring 4 x 3.3 x 2.2 cm. Electronically Signed: Mohsen Boogie MD at 7:59 EST Reading Location ID and State: [facility] / [place] Tel , Service support , Limited or Localized CT 08/30/23 08:00 IMPRESSION: Perirectal abscess as described above unchanged since prior exam. Electronically Signed: Memo Noel MD at 9:01 EST , Physical Exam Const oriented x3 and no apparent distress Resp normal respiratory effort Cardio regular rate GI GI Narrative: ALEXIS?inspection- Surgifoam still in place in the rectum Assessment & Plan Assessment/Plan (1) Perirectal abscess: PLAN: Plan Will change patient to a regular diet. Patient is able to come off nasal cannula possibly able to go home with Augmentin. Appreciate medicine's assistance. Addendum: Patient's blood cultures 1 out of 2 came back as gram-positive cocci in clusters?will check Gram stain for the abscess if they are the same I will repeat blood cultures. Patient may not be DC'd home possibly today depending as I would keep on IV antibiotics. Roslyn Olivares M.D. Pager: [phone] [facility] [address] [place] [address], [facility], [address] [place] [address] Office: [phone] Charges/Coding Visit Charges Inpatient E&M: 46458 Subs Hosp L2
[2023-08-31 07:25] LABS: Hematocrit 39.3 % (40-54); Hemoglobin 12.5 g/dL (13.0-16.5); Mean Corp Hgb Conc 31.8 g/dL (32-36); Mean Corpuscular Hgb 29.6 pg (27.0-32.0); Mean Corpuscular Volume 93.1 fL (80-94); Mean Platelet Vol. 10.6 fl (6.2-12.0); Platelet Count 204 K/mm3 (150-450); RBC Distribution Width CV 13.2 % (11.6-14.6); RBC Distribution Width SD 45.3 fl (35.1-43.9); Red Blood Count 4.22 M/mm3 (4.6-6.2); White Blood Count 6.7 K/mm3 (4.4-11.0)
[2023-08-31] MEDS: Allopurinol 300 MG Tablet PO (07:43)
[2023-08-31 08:10] LABS: Bedside Glucose 111 mg/dL (74-106)
[2023-08-31 08:12] LABS: Anion Gap 10 (5-15); BUN 12 mg/dL (7-18); BUN/Creat Ratio 10.6 RATIO (10-20); Calcium,Total 6.9 mg/dL (8.5-10.1); Chloride 108 mmol/L (98-107); Creatinine, Serum 1.13 mg/dL (0.70-1.30); EST Glomerular Filtration Rate 72 mL/min (>60); Est Glom Filt Rate - Afr Amer 88 mL/min (>60); Estimated Creatinine Clearance 78.96 ml/min; Glucose 102 mg/dL (74-106); Potassium 3.8 mmol/L (3.5-5.1); Sodium Level 137 mmol/L (136-145)
[2023-08-31] MEDS: Sertraline 100 MG Tablet PO (09:05)
[2023-08-31] MEDS: Pantoprazole Sodium 40 MG Tablet PO (09:05)
[2023-08-31] MEDS: Atorvastatin Calcium 10 MG Tablet PO (09:05)
[2023-08-31] MEDS: levETIRAcetam 750 MG Tablet PO ×2 (09:06→21:46)
[2023-08-31] MEDS: dilTIAZem CD 120 MG Capsule PO ×2 (09:06→21:46)
--- NOTE | 2023-08-31 09:58 | PN_ITS ---
Subjective Subjective Patient seen and examined. He had no active complaints. Pain is well controlled. Review of systems is otherwise negative. He is POD 1 for I&D for rectal abscess. Blood cultures are positive for gram positive cocci. Objective Data Objective Data Vital Signs: Vital Signs Temp Pulse Resp BP Pulse Ox O2 Del Method O2 Flow Rate 99.0 F 99 16 129/75 H 93 Room Air 2 08/31/23 07:29 08/31/23 07:29 08/31/23 07:29 08/31/23 07:29 08/31/23 08:35 08/31/23 08:35 08/31/23 05:09 Oxygen Flow Rate (L/min) 2 Oxygen Delivery Method Room Air Weight: 207 lb 10.807 oz Body Mass Index (BMI) 29.7 Intake & Output: Intake and Output for Last 24 Hours 08/29/23 08/30/23 08/31/23 23:59 23:59 23:59 Intake Total 2356.5 / 2356.5 1050 / 1050 Output Total 1325 / 1325 350 / 350 Balance 1031.5 / 1031.5 700 / 700 Lab / Micro Data 08/31/23 06:00 08/31/23 06:00 Labs: Laboratory Results - last 24 hr 08/30/23 15:52: POC Glucose 152 H 08/30/23 17:58: POC Glucose 136 H 08/30/23 21:09: POC Glucose 98 08/31/23 06:00: WBC 6.7, RBC 4.22 L, Hgb 12.5 L, Hct 39.3 L, MCV 93.1, MCH 29.6, MCHC 31.8 L D, RDW Std Deviation 45.3 H, RDW Coeff of Jeremiah 13.2, Plt Count 204, MPV 10.6, Sodium 137, Potassium 3.8, Chloride 108 H, Carbon Dioxide 19.0 L, Anion Gap 10, BUN 12, Creatinine 1.13, Estim Creat Clear Calc 78.96, Est GFR (MDRD) Af Amer 88, Est GFR (MDRD) Non-Af 72, BUN/Creatinine Ratio 10.6, Glucose 102, Calcium 6.9 L 08/31/23 06:32: POC Glucose 111 H Micro: Microbiology 08/30/23 Unknown Wound Abcess - Other Gram Stain - Final 08/30/23 Unknown Wound Abcess - Other Wound Culture - Preliminary GNR lactose stonecutter apprentice hand Beta streptococcus 08/30/23 08:25 Blood Culture (Wb) - Anticubital Right Blood Culture - Preliminary 08/30/23 05:31 Nasal Secretion SARS-CoV-2 & FLU Antigen (Rapid) - Final Physical Exam Const alert, oriented x3 and no apparent distress General Appearance: cooperative HEENT normocephalic, head/scalp atraumatic, moist oral mucous membranes and oropharynx normal Eyes PERRL and EOMs intact bilaterally Neck no lymphadenopathy and supple Lymph Lymphatic: no lymphadenopathy noted and no lymphedema noted Resp Resp Narrative: diminished breath sounds bibasally, no wheezes or crackles. On room air. Cardio regular rate, regular rhythm, S1 normal heart sound, S2 normal heart sound and no murmurs GI normal to inspection, nondistended, normoactive bowel sounds, soft to palpation, non-tender and non-distended Extremity normal capillary refill, no clubbing, cyanosis or edema and no calf tenderness General Extremity: no tenderness to palpation of joints or extremities Neuro CN's II-XII intact bilaterally and no focal motor deficits Motor Exam: strength 5/5 throughout and general weakness Psych thought process normal and cooperative Assessment & Plan Assessment/Plan (1) Perirectal abscess: (2) Sinus tachycardia: PLAN: Plan #sinus tachycardia * has a known history of sinus tachycardia * on cardizem * HR in the low 100s * will monitor * #Perirectal abscess * s/p I&D. On iV zosyn * blood cultures growing gram positive cocci. * wound culture show gram negative kiki lactoe stonecutter apprentice hand as well as Beta Streptococcus * will add on IV vancomycin * recommend ID consult * if positive for Staph, to get a 2D echo * #Bacteremia: as above #Type 2 diabetes mellitus: ISS. Accuchecks ACHS #Hyperlipidemia: on statin #Depression: on sertraline #Hypothyroidism;on synthroid #seizure disordr: on keppra #GOut: on allopurinol DVT prophylaxis: as per primary team, currently low risk, so ambulation en couraged. Charges/Coding Visit Charges Inpatient E&M: 54872 Subs Hosp L3
[2023-08-31] MEDS: Vancomycin HCl 2,000 MG in 0.9% Normal Saline (500mL Bag) 500 ML 250 MG IV (11:22)
--- NOTE | 2023-08-31 11:35 | PCM.RX.CS ---
Consult Antibiotic Management Pharmacy has been consulted to manage selected antibiotic: Vancomycin Type of Intervention Type of Consult: New start Suspected Infection Suspected Infection: Skin/Soft tissue and Bacteremia Labs Labs: Sodium 137 mmol/L (136-145) 08/31/23 06:00 Potassium 3.8 mmol/L (3.5-5.1) 08/31/23 06:00 Chloride 108 mmol/L (98-107) H 08/31/23 06:00 Carbon Dioxide 19.0 mmol/L (21.0-32.0) L 08/31/23 06:00 Anion Gap 10 (5-15) 08/31/23 06:00 BUN 12 mg/dL (7-18) 08/31/23 06:00 Creatinine 1.13 mg/dL (0.70-1.30) 08/31/23 06:00 Est GFR (MDRD) Af Amer 88 mL/min (>60) 08/31/23 06:00 Est GFR (MDRD) Non-Af 72 mL/min (>60) 08/31/23 06:00 BUN/Creatinine Ratio 10.6 RATIO (10-20) 08/31/23 06:00 Glucose 102 mg/dL (74-106) 08/31/23 06:00 Microbiology Microbiology: Microbiology 08/30/23 Unknown Wound Abcess - Other Gram Stain - Final 08/30/23 Unknown Wound Abcess - Other Wound Culture - Preliminary GNR lactose curing finisher Beta streptococcus 08/30/23 08:25 Blood Culture (Wb) - Anticubital Right Blood Culture - Preliminary 08/30/23 05:31 Nasal Secretion SARS-CoV-2 & FLU Antigen (Rapid) - Final Dosing Weight Weight used for dosin.2 kg Estimated Creatinine Clearance Estimated Creatinine Clearance: 88 ML/MIN Goal Trough Goal Trough: 15-20 mcg/mL Pharmacy Plan for Drug Dosing Pharmacy Plan for Drug Dosing: Give loading dose of 2000mg IV x1 as ordered, then continue with 1500mg IV q12h per [facility] dosing protocol. Will check a trough before the 4th total dose tomorrow night. The patient's CrCl of 88 ml/min was calculated using an adjusted body weight of 81.5kg. Pharmacy Service will continue to monitor and adjust dosing as required. Follow-Up Labs Follow-Up Labs: Trough: Vancomycin Date/Time Labs Ordered Labs to be done on [date and time ordered]: 09/01 22:30
[2023-08-31 12:06] LABS: Bedside Glucose 86 mg/dL (74-106)
--- NOTE | 2023-08-31 12:47 | PCM.CONS.GEN ---
Assessment & Plan Assessment/Plan (1) Perirectal abscess: PLAN: Taken to OR 08/30/[address] Olivares for I&D. Surg cx with strep and GNR. 1 of 2 bcx showing GPC in clusters. Will cont zosyn. Will follow, thank you HPI Consult Data Date of Consult: 08/31/23 HPI Narrative Reason for Consultation: abscess HPI Narrative: TAMANNA ALEXANDRA, is a 53 M who presented 08/30 with 1-2 days rectal pain, progressive, worse with sitting and BM. Reports cough and sore throat for 4-5 days. Developed fever, chills. Came to ED, CT showed rectal abscess. Admitted on zosyn, taken to OR by Dr. Olivares for I&D. Vanc added. Feeling better. Full ROS performed and neg except as noted above. ON LICENSE OF [facility] Medical History Diabetes HTN (hypertension) Seizure Home Medications allopurinol 300 mg tablet 300 mg PO DAILY gout 04/21/19 [History Last Taken 09/11/20 04:30] diltiazem HCl 120 mg capsule,extended release 24 hr 120 mg PO BID Check with primary doctor 04/21/19 [History Last Taken 09/11/20 04:30] levetiracetam 500 mg tablet 750 mg PO BID seizure 04/21/19 [History Last Taken 09/11/20 04:30] levothyroxine 25 mcg tablet 25 mcg PO DAILY 04/21/19 [History Last Taken Unknown] metformin 500 mg tablet 2 tab PO BID dm 04/21/19 [History Last Taken 09/11/20 04:30] rosuvastatin 5 mg tablet 5 mg PO DAILY 04/21/19 [History Last Taken Unknown] sertraline 100 mg tablet 100 mg PO DAILY 04/21/19 [History Last Taken Unknown] pantoprazole 40 mg tablet,delayed release 40 mg PO DAILY 09/11/20 [History Last Taken Unknown] glimepiride 4 mg tablet 4 mg PO DAILY@0800 #30 tabs 09/15/20 [Rx Last Taken Unknown] Allergy/AdvReac Type Severity Reaction Status Date / Time No Known Allergies Allergy Verified 08/30/23 04:47 Surgical History History of surgical removal of pilonidal cyst History of tonsillectomy Social History Smoking Status: Former smoker Physical Exam Const alert, oriented x3 and no apparent distress General Appearance: cooperative HEENT normocephalic and head/scalp atraumatic Eyes PERRL and EOMs intact bilaterally Neck supple and No nodes Resp normal air movement and clear to auscultation bilaterally Cardio regular rate and regular rhythm GI soft to palpation, non-tender and non-distended Extremity General Extremity: Negative for edema Skin no rashes or lesions noted Neuro CN's II-XII intact bilaterally Lab / Micro Data Attestation: I reviewed the patient's lab results. 08/31/23 06:00 08/31/23 06:00 Labs: Laboratory Results - last 24 hr 08/30/23 15:52: POC Glucose 152 H 08/30/23 17:58: POC Glucose 136 H 08/30/23 21:09: POC Glucose 98 08/31/23 06:00: WBC 6.7, RBC 4.22 L, Hgb 12.5 L, Hct 39.3 L, MCV 93.1, MCH 29.6, MCHC 31.8 L D, RDW Std Deviation 45.3 H, RDW Coeff of Jeremiah 13.2, Plt Count 204, MPV 10.6, Sodium 137, Potassium 3.8, Chloride 108 H, Carbon Dioxide 19.0 L, Anion Gap 10, BUN 12, Creatinine 1.13, Estim Creat Clear Calc 78.96, Est GFR (MDRD) Af Amer 88, Est GFR (MDRD) Non-Af 72, BUN/Creatinine Ratio 10.6, Glucose 102, Calcium 6.9 L 08/31/23 06:32: POC Glucose 111 H 08/31/23 11:27: POC Glucose 86 Micro: Microbiology 08/30/23 Unknown Wound Abcess - Other Gram Stain - Final 08/30/23 Unknown Wound Abcess - Other Wound Culture - Preliminary GNR lactose paralegal legal secretary Beta streptococcus 08/30/23 08:25 Blood Culture (Wb) - Anticubital Right Blood Culture - Preliminary
--- NOTE | 2023-08-31 16:14 | CHAPLAIN ---
Type of Pastoral Visit _x__ Initial Visit ___ Follow-up Visit ___ On-call Visit ___ General Patient Visit ___ Spiritual Assessment ___ Family Conference ___ Bereavement ___ Rapid Response ___ Code Blue ___ Other (describe below) Pastoral Care Referral From _x__ Patient ___ Family ___ Nurse ___ Physician ___ Filler Sifter Helper ___ Cnc Cutting Operator ___ Other (describe below) Sacrament/Intervention ___ Active listening ___ Anointing ___ Synagogue ___ Bereavement ___ Communion ___ Aleah exploration ___ ___ Life review ___ Prayer ___ Reconciliation ___ Sacrament of Sick _x__ Supportive presence ___ Wedding ___ Other (describe below) Pastoral Comments patient is resting in bed; pt states that he is doing okay; pt says support comes from family and that he just talked with his mother on the phone and that his will be coming after work; pt has no other concerns
[2023-08-31 17:36] LABS: Bedside Glucose 132 mg/dL (74-106)
--- OUTSIDE RECORDS SUMMARY | 2023-08-31 19:09 | XMS RPT_ITS | CCD ---
Author Name Unknown Address [address] [place] [address] Organization [facility] Care Team Providers Care Outreach Professional Name Role Phone JOHN MUIR, JACK Daly Primary Care Physician [phone] DEREK CASTANEDA DO Primary Care Physician [phone] DEREK CASTANEDA DO Attending Unavailable DEREK CASATNEDA DO Primary Care Unavailable ODALYS JAMES DO Attending Unavailable DEREK CASTANEDA DO Primary Care Unavailable JACK LOPEZ MD Attending Unavailable JACK LOPEZ MD Primary Care Unavailable STUART GUZMAN Attending Unava ilable DEREK CASTANEDA DO Primary Care Unavailable Medications Current Medications Medication Drug Class(es) Dates Sig (Normalized) Sig (Original) allopurinol 300 mg oral tablet (4 sources) Xanthine Oxidase Inhibitor Start: 10-27-2022 allopurinol 300 mg oral tablet Dose : 300 mg = 1 tab(s), Oral, qDay, # 90 tab(s), 3 Refill(s), Pharmacy: [facility]/pharmacy #[id number], Gout, 175.5, cm, 10/27/22 16:05:00 EST, Height, kg, 10/27/22 16:05:00 EST, Dosing Weight Start Date: 10/27/22 Status: Ordered Problems Active Problems Problem Classification Problem Date Documented Da te Episodic/Chronic Anxiety disorders (8 sources) Generalized anxiety disorder; Translations: [Panic] 03-28-2019 Chronic Cardiac dysrhythmias (4 sources) Palpitations 10-05-2019 Episodic Diabetes mellitus without complication (6 sources) Diabetes mellitus; Translations: [Type 2 diabetes mellitus without complications] Onset: 3 06-19-2017 Chronic Disorders of lipid metabolism (4 sources) Mixed hyperlipidemia 03-28-2019 Chronic Epilepsy; convulsions (4 sources) Seizure 03-14-2015 Episodic Esophageal disorders (4 sources) Gastroesophageal reflux disease 09-26-2014 Chronic Essential hypertension (6 sources) Hypertensive disorder; Translations: [Essential (primary) hypertension] Onset: 09-26-2014 Chronic Gout and other crystal arthropathies (4 sources) Gout 03-14-2015 Chronic Nonspecific chest pain (4 sources) Chest pain 04-15-2020 Episodic Other and unspecified benign neoplasm (2 sources) History of polyp of colon 09-07-2022 Episodic Other gastrointestinal disorders (2 sources) Mass of penis 10-27-2022 Episodic Other lower respiratory disease (4 sources) Dyspnea 10-05-2019 Episodic Other upper respiratory infections (2 sources) Upper respiratory infection 10-27-2022 Episodic Spondylosis; intervertebral disc disorders; other back problems (4 sources) Cervical disc disorder 06-19-2017 Chronic Unclassified (2 sources) Patient encounter status 07-27-2022 Past or Other Problems Problem Classification Problem Date Documented Da te Episodic/Chronic Other screening for suspected conditions (not mental disorders or infectious disease) (2 sources) Encounter for screening for malignant neoplasm of colon; Translations: [Encounter for screening for malignant neoplasm of colon] Onset: 11-17-2022 Episodic Results Test Name Value Interpretation Reference Range Facil ity Vital Signs Date Time Vital Sign Value Performing Clinician Kedar oliva 11-17-2022 08:08-0400 Diastolic Blood Pressure Non-Invasive 93 1 ODALYS JAMES [employer] [facility] 11-17-2022 08:08-0400 Heart rate 87 /min ODALYS JAMES [employer] [facility] 11-17-2022 08:08-0400 Respiratory rate 20 /min ODALYS JAMES DO [facility] 11-17-2022 08:08-0400 Systolic Blood Pressure Non-Invasive 136 1 ODALYS JAMES [employer] [facility] 11-17-2022 08:03-0400 Diastolic Blood Pressure Non-Invasive 93 1 ODALYSVelasquez JAMES [employer] [facility] 11-17-2022 08:03-0400 Heart rate 81 /min ODALYS JACOB DO [facility] 11-17-2022 08:03-0400 Respiratory rate 19 /min ODALYS JACOB DO [facility] 11-17-2022 08:03-0400 Systolic Blood Pressure Non-Invasive 125 1 ODALYS JACOB DO [facility] 11-17-2022 07:58-0400 Diastolic Blood Pressure Non-Invasive 86 1 ODALYS JACOB DO [facility] 11-17-2022 07:58-0400 Heart rate 87 /min ODALYS JACOB DO [facility] 11-17-2022 07:58-0400 Respiratory rate 20 /min ODALYS JACOB DO [facility] 11-17-2022 07:58-0400 Systolic Blood Pressure Non-Invasive 124 1 ODALYS JACOB DO [facility] 11-17-2022 07:35-0400 Respiratory Rate - Anes 15 br/min ODALYS JACOB DO [facility] 11-17-2022 07:30-0400 Respiratory Rate - Anes 19 br/min ODALYS JACOB DO [facility] 11-17-2022 07:28-0400 Body temperature 32 [degF] ODALYS JACOB DO [facility] 11-17-2022 07:25-0400 Respiratory Rate - Anes 10 br/min ODALYS JACOB DO [facility] 11-17-2022 06:47-0400 Blood Pressure Cuff Size ODALYS JACOB DO [facility] 11-17-2022 06:47-0400 Blood Pressure Location ODALYS JAMES DO [facility] 11-17-2022 06:47-0400 Blood Pressure Method ODALYS JAMES DO [facility] 11-17-2022 06:47-0400 Body height 175.5 cm ODALYS JAMES DO [facility] 11-17-2022 06:47-0400 Body temperature 97.52 [degF] ODALYS JAMES DO [facility] 11-17-2022 06:47-0400 Body weight 88.6 kg ODALYS JAMES DO [facility] 11-17-2022 06:47-0400 Body weight 28.77 kg/m2 ODALYS JAMES DO [facility] 11-17-2022 06:47-0400 Heart rate 101 /min ODALYS JAMES DO [facility] Encounters Encounter Date Encounter Type Care Provider Facility Start: 01-26-2023 End: 01-27-2023 ambulatory STUART MCHUGH [employer]IST[employer] Facility:A Start: 11-17-2022 End: 11-17-2022 ambulatory ODALYS JAMES DO Facility:B Start: 11-17-2022 End: 11-17-2022 Minor Procedure ODALYSVelasquez JAMES DO [facility] Start: 10-27-2022 End: 11-01-2022 ambulatory DEREK CASTANEDA DO Facility:B Start: 10-27-2022 End: 10-31-2022 Outreach Lab DEREK CASTANEDA DO [facility] Start: 07-20-2022 End: 07-21-2022 ambulatory JACK LOPEZ MD Facility:B Start: 07-20-2022 End: 07-20-2022 Patient encounter procedure JACK LOPEZ MD [facility] Start: 07-16-2021 End: 07-16-2021 Patient encounter procedure JACK LOPEZ MD [facility] Procedures Date Procedure Procedure Detail Performing Clinician Start: 11-17-2022 Colonoscopy ODALYS JAMES DO Start: 09-05-2019 Colonoscopy JACK BECKER MD Start: 09-05-1992 Cyst - pilonidal (disorder) JACK LOPEZ MD Tonsillectomy and adenoidectomy JACK LOPEZ MD Immunizations Immunization Date Immunization Notes Care Provider [facility] 08-20-2021 SARS-CoV-2 (COVID-19 ) mRNA-1273 vaccine JACK LOPEZ MD [facility] 12-18-2020 SARS-CoV-2 (COVID-19 ) mRNA-1273 vaccine JACK LOPEZ MD [facility] Payers Date Payer Category Payer Unknown [id number] 2022 Unknown [id number] 2019 Unknown [id number] 1971 Unknown [id number] 1971 Unknown [id number] [id number] 1971 Unknown [id number] [id number] 1971 Unknown [id number] Social History Date Type Detail Facility Start: 07-21-2020 Never smoked tobacco (f inding) [facility] Medical Equipment Procedure Code Equipment Code Equipment Origin al Text Equipment Identifier Dates Blood Glucose Te st Strips Start: 02-11-2021 FREESTYLE 28G LANCETS Start: 01-18-2020 FREESTYLE LITE T EST STRIP Start: 03-15-2019 FREESTYLE LITE T EST STRIP Start: 04-11-2020 Lancets Start: 01-23-2021 See Instructions , Free Style test strips Patient tests 2-3 times daily. Dispense 90 day rx, # 200 EA, 3 Refill(s), Pharmacy: [facility]/pharmacy #[id number], Diabetes, 176.4, cm, 01/27/22 16:35:00 EDT, Height, 93, kg, 01/27/22 16:35:00 EDT, Dosing Weight Start: 03-02-2022 See Instructions , FreeStyle Lancets 28G #100 use as directed. Dx Diabetes tests bid, # 200 EA, 3 Refill(s), Pharmacy: [facility]/pharmacy #[id number], Diabetes, 177.8, cm, 09/28/21 15:22:00 EST, Height, 95, kg, 09/28/21 15:22:00 EST, Dosing Weight Start: 12-30-2021 FREESTYLE 28G LANCETS, See Instructions, USE DIRECTED, # 100 unknown unit, 3 Refill(s), 177.8, cm, 10/16/19 15:10:00 EST, Height, 94.5, kg, 10/16/19 15:10:00 EST, Dosing Weight Start: 01-18-2020 See Instructions , # 100 strip, Refill #: 12 Total Refills: 12, TEST TWICE A DAY, [facility]/pharm[facility] #[id number] Start: 03-15-2019 FREESTYLE LITE T EST STRIP, See Instructions, TEST TWICE A DAY, # 50 strip, 25 Refill(s), 177, cm, 02/04/20 15:43:00 EDT, Height, 93.2, kg, 02/04/20 15:43:00 EDT, Dosing Weight Start: 04-11-2020 See Instructions , qs 1 month supply, # 30 EA, 0 Refill(s), [id number], Controlled diabetes mellitus type II without complication, 177, cm, 01/22/21 15:35:00 EDT, Height, 97.6, kg, 01/22/21 15:35:00 EDT, Dosing Weight Start: 01-23-2021 See Instructions , Free Style test strips Patient tests 2-3 times daily. Dispense 90 day rx, # 200 EA, 3 Refill(s), Pharmacy: [facility]/pharmacy #[id number], Diabetes, 176.4, cm, 01/27/22 16:35:00 EDT, Height, 93, kg, 01/27/22 16:35:00 EDT, Dosing Weight Start: 03-02-2022 See Instructions , FreeStyle Lancets 28G #100 use as directed. Dx Diabetes tests bid, # 200 EA, 3 Refill(s), Pharmacy: [facility]/pharmacy #[id number], Diabetes, 177.8, cm, 09/28/21 15:22:00 EST, Height, 95, kg, 09/28/21 15:22:00 EST, Dosing Weight Start: 12-30-2021 FREESTYLE 28G LANCETS, See Instructions, USE DIRECTED, # 100 unknown unit, 3 Refill(s), 177.8, cm, 10/16/19 15:10:00 EST, Height, 94.5, kg, 10/16/19 15:10:00 EST, Dosing Weight Start: 01-18-2020 See Instructions , # 100 strip, Refill #: 12 Total Refills: 12, TEST TWICE A DAY, [facility]/pharmacy #[id number] Start: 03-15-2019 FREESTYLE LITE T EST STRIP, See Instructions, TEST TWICE A DAY, # 50 strip, 25 Refill(s), 177, cm, 02/04/20 15:43:00 EDT, Height, 93.2, kg, 02/04/20 15:43:00 EDT, Dosing Weight Start: 04-11-2020 See Instructions , qs 1 month supply, # 30 EA, 0 Refill(s), [id number], Controlled diabetes mellitus type II without complication, 177, cm, 01/22/21 15:35:00 EDT, Height, 97.6, kg, 01/22/21 15:35:00 EDT, Dosing Weight Start: 01-23-2021 See Instructions , Free Style test strips Patient tests 2-3 times daily. Dispense 90 day rx, # 200 EA, 3 Refill(s), [id number], Diabetes, 176.4, cm, 01/27/22 16:35:00 EDT, Height, 93, kg, 01/27/22 16:35:00 EDT, Dosing Weight Start: 03-02-2022 See Instructions , FreeStyle Lancets 28G #100 use as directed. Dx Diabetes tests bid, # 200 EA, 3 Refill(s), [id number], Diabetes, 177.8, cm, 09/28/21 15:22:00 EST, Height, 95, kg, 09/28/21 15:22:00 EST, Dosing Weight Start: 12-30-2021 FREESTYLE 28G LANCETS, See Instructions, USE DIRECTED, # 100 unknown unit, 3 Refill(s), 177.8, cm, 10/16/19 15:10:00 EST, Height, 94.5, kg, 10/16/19 15:10:00 EST, Dosing Weight Start: 01-18-2020 See Instructions , # 100 strip, Refill #: 12 Total Refills: 12, TEST TWICE A DAY, [facility]/pharmacy #[id number] Start: 03-15-2019 FREESTYLE LITE T EST STRIP, See Instructions, TEST TWICE A DAY, # 50 strip, 25 Refill(s), 177, cm, 02/04/20 15:43:00 EDT, Height, 93.2, kg, 02/04/20 15:43:00 EDT, Dosing Weight Start: 04-11-2020 See Instructions , qs 1 month supply, # 30 EA, 0 Refill(s), Pharmacy: [facility]/pharmacy #[id number], Controlled diabetes mellitus type II without complication, 177, cm, 01/22/21 15:35:00 EDT, Height, 97.6, kg, 01/22/21 15:35:00 EDT, Dosing Weight Start: 01-23-2021 Functional Status Date Assessment Result Facility 11-17-2022 Functional Status Activity Status ADL Cathryn ke [facility] 11-17-2022 Functional Status Maintained [facility] Mental Status Date Assessment Result Facility 11-17-2022 Mental Status Orientation Oriented x 4 [facility] 11-17-2022 Mental Status [facility] Clinical Notes 11-17-2022 Note Date & Type Note Facility [facility] ADMISSION HISTORY AN D PHYSICIAL CHIEF COMPLAINT: Personal history of colon polyps HISTORY OF PRESENT ILLNESS: History of colon polyps with colonoscopy removed 3 years ago, no family history of colon cancer REVIEW OF SYSTEMS: Constitutional: denies weight loss Cardiovascular:denies chest pain, palpitations Respiratory:denies shortness of breath Gastrointestinal:no abd pain Musculoskeletal: no arthralgias Skin: no rashes . ACTIVE PROBLEMS: (16) Chest pain in adult (77770306) Diabetes (691729409) Disc disorder of cervical region (0000542369) Generalized anxiety disorder (13195409) GERD (gastroesophageal reflux disease) ([id number]) Gout ([id number]) History of colon polyps (0852112060) HTN (hypertension) ([id number]) Mixed hyperlipidemia (722751623) Palpitations (961874739) Panic (470703069) Penile lump (925461519) Screening for colorectal cancer (667542430) Seizure ([id number]) SOB - Shortness of breath (098721421) URI with cough and congestion (13294993) MEDICATIONS: Active Inpt Meds: None Active PRN Meds: None One Time Meds: None Active IV Meds: Lactated Ringers Infusion 1,000 mL Start: 11/17/22 6:44:00 EDT, Rate: 20 mL/hr, 11/17/22 6:44:00 EDT ALLERGIES: (1) NKA FAMILY HISTORY: SOCIAL HISTORY: PHYSICAL EXAM: VITALS: [id number]1JevfVl(kg) 11/17 06:4736.4--1316151--20/15 88.6 24 Hr Tmax: 36.4 at 11/17 06:47 36 Hr Tmax: 36.4 at 11/17 06:47 Vital Signs are the last 5 in the past 48 hours. Weights display the last 5 within 7 days. Initial Wt: 11/17 88.6 kg 195 lb Current Wt: 11/17 88.6 kg 195 lb physical exam alert and oriented cardio; regular without murmur pulm; clear abd; soft, nontender LABS: 36hr Labs 11/17 0647 Blood Glucose, [id number] Blood Glucose, [id number] DIAGNOSTICS: IMPRESSION: History of colon polyps PLAN: Colonoscopy and possible polypectomy was discussed in the office. Risk, benefits, prep and sedation were discussed Future Appointments Appointment Date:01/26/2023 04:30:00 PM Scheduled Provider:DEREK CASTANEDA DO Location:[facility] Appointment Type:[facility] 03-15-2023 Hospital Discharge instructions Patient Education 11/17/2022 07:42:21 Monitored Anesthesia Care, Care After Monitored Anesthesia Care, Care After These instructions provide you with information about caring for yourself after your procedure. Your health care provider may also give you more specific instructions. Your treatment has been plannedaccording to current medical practices, but problems sometimes occur. Call your health care provider if you have any problems or questions after your procedure. What can I expect after the procedure? After your procedure, you may: Feel sleepy for several hours. Feel clumsy and have poor balance for several hours. Feel forgetful about what happened after the procedure. Have poor judgment for several hours. Feel nauseous or vomit. Have a sore throat if you had a breathing tube during the procedure. Follow these instructions at home: For at least 24 hours after the procedure: Have a responsible adult stay with you. It is important to have someone help care for you until youare awake and alert. Rest as needed. Do not: ?Participate in activities in which you could fall or become injured. ?Drive. ?Use heavy machinery. ?Drink alcohol. ?Take sleeping pills or medicines that cause drowsiness. ?Make important decisions or sign legal documents. ?Take care of children on your own. Eating and drinking Follow the diet that is recommended by your health care provider. If you vomit, drink water, juice, or soup when you can drink without vomiting. Make sure you have little or no nausea before eating solid foods. General instructions Take wfid-wdc-bdtgste and prescription medicines only as told by your health care provider. If you have sleep apnea, surgery and certain medicines can increase your risk for breathing problems. Follow instructions from your health care provider about wearing your sleep device: ?Anytime you are sleeping, including during daytime naps. ?While taking prescription pain medicines, sleeping medicines, or medicines that make you drowsy. If you smoke, do not smoke without supervision. Keep all follow-up visits as told by your health care provider. This is important. Contact a health care provider if: You keep feeling nauseous or you keep vomiting. You feel light-headed. You develop a rash. You have a fever. Get help right away if: You have trouble breathing. Summary For several hours after your procedure, you may feel sleepy and have poor judgment. Have a responsible adult stay with you for at least 24 hours or until you are awake and alert. This information is not intended to replace advice given to you by your health care provider. Make sure you discuss any questions you have with your health care provider. Document Released: 12/12/2016 Document Revised: 11/20/2018 Document Reviewed: 12/12/2016 [employer] Patient Education 2020 [employer] 11/17/2022 07:42:13 Colon Polyps Colon Polyps Polyps are tissue growths inside the body. Polyps can grow in many places, including the large intestine (colon). A polyp may be a round bump or a mushroom-shaped growth. You could have one polyp or several. Most colon polyps are noncancerous (benign). However, some colon polyps can become cancerous over time. Finding and removing the polyps early can help prevent this. What are the causes? The exact cause of colon polyps is not known. What increases the risk? You are more likely to develop this condition if you: Have a family history of colon cancer or colon polyps. Are older than 50 or older than 45 if you are . Have inflammatory bowel disease, such as ulcerative colitis or Crohn's disease. Have certain hereditary conditions, such as: ?Familial adenomatous polyposis. ?Mixon syndrome. ?Turcot syndrome. ?Peutz Jeghers syndrome. Are overweight. Smoke cigarettes. Do not get enough exercise. Drink too much alcohol. Eat a diet that is high in fat and red meat and low in fiber. Had childhood cancer that was treated with abdominal radiation. What are the signs or symptoms? Most polyps do not cause symptoms. If you have symptoms, they may include: Blood coming from your rectum when having a bowel movement. Blood in your stool. The stool may look dark red or black. Abdominal pain. A change in bowel habits, such as constipation or diarrhea. How is this diagnosed? This condition is diagnosed with a colonoscopy. This is a procedure in which a lighted, flexible scope is inserted into the anus and then passed into the colon to examine the area. Polyps are sometimes found when a colonoscopy is done as part of routine cancer screening tests. How is this treated? Treatment for this condition involves removing any polyps that are found. Most polyps can be removed during a colonoscopy. Those polyps will then be tested for cancer. Additional treatment may be needed depending on the results of testing. Follow these instructions at home: Lifestyle Maintain a healthy weight, or lose weight if recommended by your health care provider. Exercise every day or as told by your health care provider. Do not use any products that contain nicotine or tobacco, such as cigarettes and e-cigarettes. If you need help quitting, ask your health care provider. If you drink alcohol, limit how much you have: ?0 1 drink a day for women. ? 0 2 drinks a day for men. Be aware of how much alcohol is in your drink. In the [place] one drink equals one 12 oz bottle of beer (355 mL), one 5 oz glass of wine (148 mL), or one 1 oz shot of hard liquor (44 mL). Eating and drinking Eat foods that are high in fiber, such as fruits, vegetables, and whole grains. Eat foods that are high in calcium and vitamin D, such as milk, cheese, yogurt, eggs, liver, fish, and broccoli. Limit foods that are high in fat, such as fried foods and desserts. Limit the amount of red meat and processed meat you eat, such as hot dogs, sausage, ghotra, and lunch meats. General instructions Keep all follow-up visits as told by your health care provider. This is important. ?This includes having regularly scheduled colonoscopies. ?Talk to your health care provider about when you need a colonoscopy. Contact a health care provider if: You have new or worsening bleeding during a bowel movement. You have new or increased blood in your stool. You have a change in bowel habits. You lose weight for no known reason. Summary Polyps are tissue growths inside the body. Polyps can grow in many places, including the colon. Most colon polyps are noncancerous (benign), but some can become cancerous over time. This condition is diagnosed with a colonoscopy. Treatment for this condition involves removing any polyps that are found. Most polyps can be removed during a colonoscopy. This information is not intended to replace advice given to you by your health care provider. Make sure you discuss any questions you have with your health care provider. Document Released: 05/18/2005 Document Revised: 12/07/2018 Document Reviewed: 12/07/2018 [employer] Patient Education 2020 [employer] 11/17/2022 07:42:03 Colonoscopy, Adult, Care After Colonoscopy, Adult, Care After This sheet gives you information about how to care for yourself after your procedure. Your health care provider may also give you more specific instructions. If you have problems or questions, contact your health care provider. What can I expect after the procedure? After the procedure, it is common to have: A small amount of blood in your stool for 24 hours after the procedure. Some gas. Mild abdominal cramping or bloating. Follow these instructions at home: General instructions For the first 24 hours after the procedure: ?Do not drive or use machinery. ?Do not sign important documents. ?Do not drink alcohol. ?Do your regular daily activities at a slower pace than normal. ?Eat soft, zums-wi-jpjvtb foods. Take mjjx-rqy-hjnctmu or prescription medicines only as told by your health care provider. Relieving cramping and bloating Try walking around when you have cramps or feel bloated. Apply heat to your abdomen as told by your health care provider. Use a heat source that your healthcare provider recommends, such as a moist heat pack or a heating pad. ?Place a towel between your skin and the heat source. ?Leave the heat on for 20 30 minutes. ?Remove the heat if your skin turns bright red. This is especially important if you are unable to feel pain, heat, or cold. You may have a greater risk of getting burned. Eating and drinking Drink enough fluid to keep your urine pale yellow. Resume your normal diet as instructed by your health care provider. Avoid heavy or fried foods thatare hard to digest. Avoid drinking alcohol for as long as instructed by your health care provider. Contact a health care provider if: You have blood in your stool 2 3 days after the procedure. Get help right away if: You have more than a small spotting of blood in your stool. You pass large blood clots in your stool. Your abdomen is swollen. You have nausea or vomiting. You have a fever. You have increasing abdominal pain that is not relieved with medicine. Summary After the procedure, it is common to have a small amount of blood in your stool. You may also have mild abdominal cramping and bloating. For the first 24 hours after the procedure, do not drive or use machinery, sign important documents, or drink alcohol. Contact your health care provider if you have a lot of blood in your stool, nausea or vomiting, a fever, or increased abdominal pain. This information is not intended to replace advice given to you by your health care provider. Make sure you discuss any questions you have with your health care provider. Document Released: 04/05/2005 Document Revised: 06/14/2018 Document Reviewed: 11/02/2016 inDinero Patient Education 2020 DBVu. Follow Up Care 09/09/2022 07:43:09 With:DEREK CASTANEDA DO Address: [address] [place] [phone] When: Unknown [facility] 03-15-2023 Anesthesiology Consult note Patient: TAMANNA ALEXANDRA Age: 52 years Sex: Male : 1970 Associated Diagnoses: None Author: MARVA CARPIO APRN-DATER ASSEMBLER Assessment Postanesthesia assessment Vitals: Reviewed Results: Vital signs from flowsheet : Vital Signs(Date Range: 11/16/2022 0:00 EDT -11/17/2022 7:46 EDT) . Mental status: at preoperative baseline. Respiratory function: lungs are clear to auscultation. Respiratory support: none. CV function: Normal rate. Cardiovascular support: none. Pain. Nausea status: denies nausea. Postoperative hydration status: within normal limits. Digitally Signed by MARVA CARPIO on 11/17/2022 07:[address] [facility]03-15-2023 Summary of episode note Discharge Instructions Thank you for allowing [facility] to assist you with your healthcare needs. The following is importantdischarge information regarding your hospital visit. Your Care Team DEREK CASTANEDA DO Your Diagnosis Colonoscopy What to do next Instructions From Your Doctor 2 polyp removed, results of pathology will go to PCP. Recommend repeat colonoscopy in 5 years. Scheduled Follow-Up Appointments Appointment Type When With Where Contact Information MATTHIAS 01/26/2023 04:30 PM EDT DEREK CASTANEDA [address] [id number] Follow Up Appointments Follow Up with DEREK CASTANEDA DO When Where: [address] [place] [phone] The Following Activity and Diet Have Been Ordered for You Discharge Activity - Ordered -- Driving Restricted, No driving until tomorrow, 11/17/22 7:43:00 EDT Discharge Return to Work, School, or Sports - Ordered -- May return to: work, 11/17/22 7:43:00 EDT Discharge Diet - Ordered -- Type of Diet: Regular Diet, 11/17/22 7:43:00 EDT Allergies NKA Medications Please ask your primary doctor or pharmacist before taking any other medication not listed, including over the counter drugs, herbal medications, vitamins and or supplements as they may interact withyour home medications. What How Much When Why Instructions Last Dose Unchanged allopurinol (allopurinol 300 mg oral tablet) 1 tab(s) by mouth Once a day Gout Unchanged dilTIAZem (DilTIAZem Hydrochloride SR 120 mg/ 12 hours oral capsule, extended release) See instructions TAKE 1 CAPSULE EVERY 12 HOURS Unchanged DME (Blood Glucose Test Machine) See instructions Freestyle [place] Lite Meter Unchanged DME (Blood Glucose Test Strips) See instructions Diabetes Free Style test strips Patient tests 2-3 times daily. Dispense 90 day rx Unchanged DME (DME MISCellaneous) See instructions Diabetes FreeStyle Lancets 28G #100 use as directed. Dx Diabetes tests bid Unchanged DME (Lancets) See instructions Controlled diabetes mellitus type II without complication qs 1 month supply Unchanged empagliflozin (Jardiance 25 mg oral tablet) 1 tab(s) by mouth Once a day (in the morning) Diabetes Increased dose Unchanged glimepiride (glimepiride 4 mg oral tablet) 1 tab(s) by mouth Once a day Diabetes Unchanged levETIRAcetam (Keppra 750 mg oral tablet) 1 tab(s) by mouth Two (2) times a day Unchanged levothyroxine (levothyroxine 25 mcg (0.025 mg) oral tablet) 1 tab(s) by mouth Once a day Hypothyroidism Unchanged metFORMIN (metFORMIN 500 mg oral tablet (IR)) 2 tab(s) by mouth Two (2) times a day Diabetes TAKE 2 TABLETS BY MOUTH TWICE A DAY Unchanged Misc Medication (FREESTYLE 28G LANCETS) See instructions USE DIRECTED Unchanged Misc Medication (FREESTYLE LITE TEST STRIP) See instructions TEST TWICE A DAY Unchanged Misc Medication (FREESTYLE LITE TEST STRIP) See instructions TEST TWICE A DAY Unchanged pantoprazole (pantoprazole 40 mg oral enteric coated tablet) 1 tab(s) by mouth Once a day GERD (gastroesophageal reflux disease) Unchanged rosuvastatin (rosuvastatin 5 mg oral tablet) 1 tab(s) by mouth Daily at bedtime Unchanged sertraline (sertraline 100 mg oral tablet) 1 tab(s) by mouth Once a day Generalized anxiety disorder Please take this list to your next doctor s visit. Bring all medications you take, including over the counter medications, herbals and other supplements with you to your doctor s visit. Patients and families are reminded to discard old lists and to update any records with all medication providers or retail pharmacies. Education Materials Monitored Anesthesia Care, Care After These instructions provide you with information about caring for yourself after your procedure. Your health care provider may also give you more specific instructions. Your treatment has been plannedaccording to current medical practices, but problems sometimes occur. Call your health care provider if you have any problems or questions after your procedure. What can I expect after the procedure? After your procedure, you may: Feel sleepy for several hours. Feel clumsy and have poor balance for several hours. Feel forgetful about what happened after the procedure. Have poor judgment for several hours. Feel nauseous or vomit. Have a sore throat if you had a breathing tube during the procedure. Follow these instructions at home: For at least 24 hours after the procedure: Have a responsible adult stay with you. It is important to have someone help care for you until youare awake and alert. Rest as needed. Do not: ? Participate in activities in which you could fall or become injured. ? Drive. ? Use heavy machinery. ? Drink alcohol. ? Take sleeping pills or medicines that cause drowsiness. ? Make important decisions or sign legal documents. ? Take care of children on your own. Eating and drinking Follow the diet that is recommended by your health care provider. If you vomit, drink water, juice, or soup when you can drink without vomiting. Make sure you have little or no nausea before eating solid foods. General instructions Take ybvg-izf-zznalsc and prescription medicines only as told by your health care provider. If you have sleep apnea, surgery and certain medicines can increase your risk for breathing problems. Follow instructions from your health care provider about wearing your sleep device: ? Anytime you are sleeping, including during daytime naps. ? While taking prescription pain medicines, sleeping medicines, or medicines that make you drowsy. If you smoke, do not smoke without supervision. Keep all follow-up visits as told by your health care provider. This is important. Contact a health care provider if: You keep feeling nauseous or you keep vomiting. You feel light-headed. You develop a rash. You have a fever. Get help right away if: You have trouble breathing. Summary For several hours after your procedure, you may feel sleepy and have poor judgment. Have a responsible adult stay with you for at least 24 hours or until you are awake and alert. This information is not intended to replace advice given to you by your health care provider. Make sure you discuss any questions you have with your health care provider. Document Released: 12/12/2016 Document Revised: 11/20/2018 Document Reviewed: 12/12/2016 [employer]Dinero Patient Education 2020 [employer] Inc. Colon Polyps Polyps are tissue growths inside the body. Polyps can grow in many places, including the large intestine (colon). A polyp may be a round bump or a mushroom-shaped growth. You could have one polyp or several. Most colon polyps are noncancerous (benign). However, some colon polyps can become cancerous over time. Finding and removing the polyps early can help prevent this. What are the causes? The exact cause of colon polyps is not known. What increases the risk? You are more likely to develop this condition if you: Have a family history of colon cancer or colon polyps. Are older than 50 or older than 45 if you are . Have inflammatory bowel disease, such as ulcerative colitis or Crohn's disease. Have certain hereditary conditions, such as: ? Familial adenomatous polyposis. ? Mixon syndrome. ? Turcot syndrome. ? Peutz Jeghers syndrome. Are overweight. Smoke cigarettes. Do not get enough exercise. Drink too much alcohol. Eat a diet that is high in fat and red meat and low in fiber. Had childhood cancer that was treated with abdominal radiation. What are the signs or symptoms? Most polyps do not cause symptoms. If you have symptoms, they may include: Blood coming from your rectum when having a bowel movement. Blood in your stool. The stool may look dark red or black. Abdominal pain. A change in bowel habits, such as constipation or diarrhea. How is this diagnosed? This condition is diagnosed with a colonoscopy. This is a procedure in which a lighted, flexible scope is inserted into the anus and then passed into the colon to examine the area. Polyps are sometimes found when a colonoscopy is done as part of routine cancer screening tests. How is this treated? Treatment for this condition involves removing any polyps that are found. Most polyps can be removed during a colonoscopy. Those polyps will then be tested for cancer. Additional treatment may be needed depending on the results of testing. Follow these instructions at home: Lifestyle Maintain a healthy weight, or lose weight if recommended by your health care provider. Exercise every day or as told by your health care provider. Do not use any products that contain nicotine or tobacco, such as cigarettes and e-cigarettes. If you need help quitting, ask your health care provider. If you drink alcohol, limit how much you have: ? 0 1 drink a day for women. ? 0 2 drinks a day for men. Be aware of how much alcohol is in your drink. In the [place] one drink equals one 12 oz bottle of beer (355 mL), one 5 oz glass of wine (148 mL), or one 1 oz shot of hard liquor (44 mL). Eating and drinking Eat foods that are high in fiber, such as fruits, vegetables, and whole grains. Eat foods that are high in calcium and vitamin D, such as milk, cheese, yogurt, eggs, liver, fish, and broccoli. Limit foods that are high in fat, such as fried foods and desserts. Limit the amount of red meat and processed meat you eat, such as hot dogs, sausage, ghotar, and lunch meats. General instructions Keep all follow-up visits as told by your health care provider. This is important. ? This includes having regularly scheduled colonoscopies. ? Talk to your health care provider about when you need a colonoscopy. Contact a health care provider if: You have new or worsening bleeding during a bowel movement. You have new or increased blood in your stool. You have a change in bowel habits. You lose weight for no known reason. Summary Polyps are tissue growths inside the body. Polyps can grow in many places, including the colon. Most colon polyps are noncancerous (benign), but some can become cancerous over time. This condition is diagnosed with a colonoscopy. Treatment for this condition involves removing any polyps that are found. Most polyps can be removed during a colonoscopy. This information is not intended to replace advice given to you by your health care provider. Make sure you discuss any questions you have with your health care provider. Document Released: 05/18/2005 Document Revised: 12/07/2018 Document Reviewed: 12/07/2018 inDinero Patient Education 2020 [employer]. Colonoscopy, Adult, Care After This sheet gives you information about how to care for yourself after your procedure. Your health care provider may also give you more specific instructions. If you have problems or questions, contact your health care provider. What can I expect after the procedure? After the procedure, it is common to have: A small amount of blood in your stool for 24 hours after the procedure. Some gas. Mild abdominal cramping or bloating. Follow these instructions at home: General instructions For the first 24 hours after the procedure: ? Do not drive or use machinery. ? Do not sign important documents. ? Do not drink alcohol. ? Do your regular daily activities at a slower pace than normal. ? Eat soft, xfnb-ij-icucnd foods. Take cmli-ehv-rxglflf or prescription medicines only as told by your health care provider. Relieving cramping and bloating Try walking around when you have cramps or feel bloated. Apply heat to your abdomen as told by your health care provider. Use a heat source that your healthcare provider recommends, such as a moist heat pack or a heating pad. ? Place a towel between your skin and the heat source. ? Leave the heat on for 20 30 minutes. ? Remove the heat if your skin turns bright red. This is especially important if you are unable to feel pain, heat, or cold. You may have a greater risk of getting burned. Eating and drinking Drink enough fluid to keep your urine pale yellow. Resume your normal diet as instructed by your health care provider. Avoid heavy or fried foods thatare hard to digest. Avoid drinking alcohol for as long as instructed by your health care provider. Contact a health care provider if: You have blood in your stool 2 3 days after the procedure. Get help right away if: You have more than a small spotting of blood in your stool. You pass large blood clots in your stool. Your abdomen is swollen. You have nausea or vomiting. You have a fever. You have increasing abdominal pain that is not relieved with medicine. Summary After the procedure, it is common to have a small amount of blood in your stool. You may also have mild abdominal cramping and bloating. For the first 24 hours after the procedure, do not drive or use machinery, sign important documents, or drink alcohol. Contact your health care provider if you have a lot of blood in your stool, nausea or vomiting, a fever, or increased abdominal pain. This information is not intended to replace advice given to you by your health care provider. Make sure you discuss any questions you have with your health care provider. Document Released: 04/05/2005 Document Revised: 06/14/2018 Document Reviewed: 11/02/2016 [employer] Patient Education 2020 [employer] Additional Information VACCINATE! IT SAVES LIVES! Members of the community who have not yet received the COVID-19 vaccine and would like to receive it can visit one of [facility] vaccine clinics. There are many vaccine clinic locations within the [facility]. For locations and available times, please visit [email or web address]/. It is important to note that some COVID mobile vaccine clinics are held outdoors and may be canceled in rainy or stormy conditions. To learn more about pediatric vaccinations (ages 5-11), we invite you to visit the [facility] webpage. https://www.[facility].org/pages/3172-Bnmsk-Zqwiwaelhul-Nbtswsmuur-Ensaz-Aux stions.htmlTo learn more about the COVID-19 vaccine, we invite you to visit the CDC website for a list of frequently asked questions. https://www.cdc.gov/coronavirus/2019-ncov/vaccines/faq.html [employer] Patient Portal Access Instructions: Stay connected with your healthcare team and access your personal medical information anytime with the [employer] Patient Portal.If you would like a full copy of your medical records, please contact the [facility] Medical Records Department, Tuesday through Tuesday between 8a.m. and 4:30p.m. Please follow the directions below to access the portal: 1.Access the email account you provided upon registration to the [facility].2.Look for an invitation email from [facility].3.Open the email and access the invitation link: Accept Invitation to [employer]4.Fill in the required salter to create your account. Sign into [email or web address].[email or web address] with your username and password that you created in the above steps to stay up to date. You can then view a summary of results, a summary of your visits, and the ability to download your summaries to your computer or send the information securely to a physician. Remember that your healthcare information is confidential, so carefully consider who you will allow to register on the [employer] Patient Portal for access to your information. You can also access the [employer] Patient Portal on the [employer]itus. Simply click on Health Records under [employer] and then click on the [employer] logo. HOW TO SAFELY DISPOSE OF PRESCRIPTION MEDICATIONS Please use one of the following methods to safely dispose of your unused medications. 1.Use a drug disposal kit: the drug disposal pouch allows you to safely discard your old and unuseddrugs. Ask your nurse to give you one when you are discharged.2.Visit a local take-back location: Many local pharmacies and police departments have programs that collect old and unwanted prescriptiondrugs. Call your local pharmacy or go to http://bit.Blue Photo Stories/0W5Bn9n to find one close to you.3.Make use of household items: Use cat litter or old coffee grounds to dispose medications if other options arenot available. Mix your drugs with these household products, seal them in an airtight container andthrow it into the garbage. Call [facility]: [phone] to be sure your drugs can be disposed of in this way. Some medicines may require a different approach.4.Never flush your medications down the toilet. IF YOU HAVE BEEN PRESCRIBED AN OPIOID FOR PAIN If you have been prescribed an opioid (such as hydrocodone, oxycodone or morphine), it is critical to understand the possible side effects and risks of opioid pain medications. Even when taken as directed, opioids can have several side effects including: Tolerance, meaning you might need to take more of a medication for the same pain relief. Nausea, vomiting and/or constipation. Sleepiness, dizziness, dry mouth, confusion, depression or itching. Physical dependence, meaning you have withdrawal symptoms when a medication is stopped, can develop within a few days. KNOW YOUR RESPONSIBILITIES It is important to know exactly how much and how often to take the opioid pain medications you are prescribed. Never take opioids in higher amounts or more often than prescribed. Do not combine opioids with alcohol or other drugs that cause drowsiness, such as benzodiazepines, also known as benzos, including diazepam and alprazolam, muscle relaxants or sleep aids. Never sell or share prescription opioids. This is illegal. Store opioids in a secure place and out of reach of others (including children, family, friends and visitors). The last page of this document has been signed and retained as a CHART COPY. Signatures Patient Education Materials Monitored Anesthesia Care, Care After Colon Polyps Colonoscopy, Adult, Care After Medication Leaflets My discharge plan and instructions have been reviewed and explained to me and I,TAMANNA ALEXANDRA understand my current condition and have read and understand these discharge instructions. I have received a written copy of the plan/instructions. If I have questions, I am aware that I should contact my doctor. Patient/Manager Social Work Signature: Date/Time: Relationship to Patient: Witness Name/Signature: Date/Time: [facility]03-15-2023 Anesthesiology Consult note Patient: TAMANNA ALEXANDRA Age: 52 years Sex: Male : 1970 Associated Diagnoses: None Author: MARVA CARPIO Preoperative Information Time of last food or liquid consumption: 11/17/2022 00:00:00 Anesthesia history Patient's history: negative. Family's history: negative. Health Status Allergies: Allergic Reactions (Selected) NKA, Allergies (1) ActiveReaction NKANone Documented Current medications: (Selected) Inpatient Medications Ordered Lactated Ringers Infusion 1,000 mL: 20 mL/hr, Intravenous Prescriptions Prescribed Blood Glucose Test Machine: See Instructions, Freestyle [place] Lite Meter, 1 EA, 0 Refill(s) Blood Glucose Test Strips: See Instructions, Free Style test strips Patient tests 2-3 times daily. Dispense 90 day rx, 200 EA, 3 Refill(s) DME MISCellaneous: See Instructions, FreeStyle Lancets 28G #100 use as directed. Dx Diabetes tests bid, 200 EA, 3 Refill(s) DilTIAZem Hydrochloride SR 120 mg/12 hours oral capsule, extended release: See Instructions, TAKE 1CAPSULE EVERY 12 HOURS, 180 cap(s), 3 Refill(s) FREESTYLE 28G LANCETS: See Instructions, USE DIRECTED, 100 unknown unit, 3 Refill(s) FREESTYLE LITE TEST STRIP: See Instructions, TEST TWICE A DAY, 100 strip, 12 Refill(s) FREESTYLE LITE TEST STRIP: See Instructions, TEST TWICE A DAY, 50 strip, 25 Refill(s) Jardiance 25 mg oral tablet: 25 mg, 1 tab(s), Oral, qAM, Increased dose, 90 tab(s), 1 Refill(s) Lancets: See Instructions, qs 1 month supply, 30 EA, 0 Refill(s) allopurinol 300 mg oral tablet: 300 mg, 1 tab(s), Oral, qDay, 90 tab(s), 3 Refill(s) glimepiride 4 mg oral tablet: 4 mg, 1 tab(s), Oral, qDay, 90 tab(s), 3 Refill(s) levothyroxine 25 mcg (0.025 mg) oral tablet: 25 mcg, 1 tab(s), Oral, qDay, 90 tab(s), 1 Refill(s) metFORMIN 500 mg oral tablet (IR): 1,000 mg, 2 tab(s), Oral, BID, TAKE 2 TABLETS BY MOUTH TWICE A DAY, 360 tab(s), 1 Refill(s) pantoprazole 40 mg oral enteric coated tablet: 40 mg, 1 tab(s), Oral, qDay, 90 tab(s), 3 Refill(s) rosuvastatin 5 mg oral tablet: 5 mg, 1 tab(s), Oral, qHS, 90 tab(s), 3 Refill(s) sertraline 100 mg oral tablet: 100 mg, 1 tab(s), Oral, qDay, 90 tab(s), 3 Refill(s) Documented Medications Documented Keppra 750 mg oral tablet: 750 mg, 1 tab(s), Oral, BID, 60 tab(s), 0 Refill(s), Medications (1) Active Scheduled: (0) Continuous: (1) Lactated Ringers Infusion 1,000 mL 1,000 mL, Intravenous, 20 mL/hr PRN: (0) Problem list: Medical Disc disorder of cervical region / SNOMED CT 4266704605 / Confirmed Chest pain in adult / SNOMED CT 56141695 / Confirmed Diabetes / SNOMED CT 081851918 / Confirmed Generalized anxiety disorder / SNOMED CT 31532944 / Confirmed GERD (gastroesophageal reflux disease) / SNOMED CT [id number] / Confirmed Gout / SNOMED CT [id number] / Confirmed History of colon polyps / SNOMED CT 2518469478 / Confirmed HTN (hypertension) / SNOMED CT [id number] / Confirmed Penile lump / SNOMED CT 111569875 / Confirmed Mixed hyperlipidemia / SNOMED CT 181169225 / Confirmed Palpitations / SNOMED CT 406514238 / Confirmed Panic / SNOMED CT 674842160 / Confirmed Screening for colorectal cancer / SNOMED CT 500409908 / Confirmed Seizure / SNOMED CT [id number] / Confirmed SOB - Shortness of breath / SNOMED CT 015933811 / Confirmed URI with cough and congestion / SNOMED CT 81731203 / Confirmed, Active Problems (16) Chest pain in adult Diabetes Disc disorder of cervical region Generalized anxiety disorder GERD (gastroesophageal reflux disease) Gout History of colon polyps HTN (hypertension) Mixed hyperlipidemia Palpitations Panic Penile lump Screening for colorectal cancer Seizure SOB - Shortness of breath URI with cough and congestion Histories Past Medical History: Active HTN (hypertension) ([id number]) GERD (gastroesophageal reflux disease) ([id number]) Disc disorder of cervical region (0509162161) Diabetes (181454993) Resolved Gout ([id number]): Resolved., seizure disorder, NIDDM Family History: Cancer Mother (Raeann Alexandra) Comments: 03/28/2019 11:41 KELLIE Stinson Mantle Cell non-hodgkins lymphoma Anxiety Mother (Raeann Alexandra) Sister (Maryse Porras) Hypothyroidism Mother (Raeann Alexandra) Heart attack Father (Helena Alexandra) Bipolar Mother (Raeann Alexandra) Diabetes Father (Helena Alexandra) Procedure history: Colonoscopy ([id number]) in the month of 09/2019 at 49 Years. Cyst - pilonidal ([id number]) in 1992 at 23 Years. Tonsillectomy and adenoidectomy ([id number]). Social History Social & Psychosocial Habits Alcohol 01/27/2022 Use: Past Type: Beer Frequency: 1-2 times per month Substance Abuse 03/28/2019 Use: Never Tobacco 07/27/2022 Tobacco Use: Former smoker, quit more, chew Exposure to Tobacco Smoke Lives in non-smoking home Type: Oral (Snuff, Chew) Comment: no tobacco smoke exposure - 03/28/2019 11:35 - KELLIE Lantigua; minimal - 03/28/2019 15:55 - KELLIE Lantigua; 1/2 can daily - 07/21/2020 14:40 - KELLIE Lantigua Home/Environment 03/28/2019 Primary Cover Seamer: self Nutrition/Health 07/27/2022 Caffeine intake amount: tea/soda- 2 servings per day . Physical Examination Vital Signs 11/17/2022 6:47 EDT Temperature Temporal Artery 36.4 DegC Apical Heart Rate 101 bpm HI Respiratory Rate 16 br/min Systolic Blood Pressure Non-Invasive 145 mmHg HI Diastolic Blood Pressure Non-Invasive 101 mmHg >HHI Blood Pressure Method Automatic Blood Pressure Location Left arm Blood Pressure Cuff Size Large Vital Signs(last 24 hrs) Last Charted Resp Rate 16 br/min (NOV 17 06:47) SBPH 145mmHg (NOV 17 06:47) DBPC 101mmHg (NOV 17 06:47) BMI28.77 (NOV 17 06:47) Measurements from flowsheet : Measurements 11/17/2022 6:47 EDT Height 175.5 cm Admission Weight 88.6 kg Weight Method Stated [place] Body Weight 70.92 kg BSA Admission 2.05 Body Mass Index 28.77 kg/m2 Pain assessment: Pain Assessment 11/17/2022 6:47 EDT Primary Pain Intensity 0 Pain Scale Type 0-10 Pain scale . General: Alert and oriented. Airway: Normal temporomandibular joint mobility. Mallampati classification: III (soft palate, base of uvula visible). Head: Normocephalic. Dentition Evaluation: Intact, bonded lower front teeth. Neck: Supple. Respiratory: Lungs are clear to auscultation. Cardiovascular: Normal rate. Heart Sounds: Normal. Gastrointestinal: Soft. Musculoskeletal Normal range of motion. Integumentary: Intact. Neurologic: Alert. Review / Management Results review: No qualifying data available , Lab results 11/17/2022 7:17 EDT Lactated Ringers Injection Begin Bag 1,000 mL mL 11/17/2022 7:16 EDT SN - Proc - Actual Procedure COLONOSCOPY 11/17/2022 7:16 EDT SN - PP - Body Position Lateral Right Side-up Standard Intra-op 11/17/2022 7:16 EDT SN - GCD - Post-operative Diagnosis SCREENING SN - GCD - Case Level OPD Level 3 11/17/2022 7:15 EDT SN - CAt - Case Attendee SN - CAt - Case Attendee SN - CAt - Case Attendee SN - CAt - Case Attendee SN - CAt - Case Attendee SN - CAt - Case Attendee SN - CAt - Case Attendee SN - CAt - Case Attendee SN - CAt - Role Performed Primary Surgeon SN - CAt - Role Performed DATER ASSEMBLER SN - CAt - Role Performed Report Checker 1 SN - CAt - Role Performed Supervisor Electron Tube Processing 11/17/2022 7:12 EDT [place] History and Physical 11/17/2022 6:59 EDT IV Present Present Forearm Right 11/17/2022 22 gauge Peripheral IV Activity: Insert new site Peripheral IV Dressing Condition: Clean, Dry, Intact Peripheral IV Dressing Activity: Applied, Transparent dressing Peripheral IV Line Status/Patency: Flushes easily Peripheral IV Site Condition: No complications Peripheral IV Equipment: Extension set 11/17/2022 6:47 EDT Blood Glucose, Capillary 105 mg/dL Designated Person #1 We May Share ILA Zamorano [phone] Designated Person #1 Relationship Spouse Height 175.5 cm Admission Weight 88.6 kg Weight Method Stated [place] Body Weight 70.92 kg BSA Admission 2.05 Body Mass Index 28.77 kg/m2 Temperature Temporal Artery 36.4 DegC Apical Heart Rate 101 bpm HI Respiratory Rate 16 br/min Systolic Blood Pressure Non-Invasive 145 mmHg HI Diastolic Blood Pressure Non-Invasive 101 mmHg >HHI Blood Pressure Method Automatic Blood Pressure Location Left arm Blood Pressure Cuff Size Large Primary Pain Intensity 0 Pain Scale Type 0-10 Pain scale Oxygen Saturation 95 % Abdomen Description Non-distended Abdomen Palpation Non-Tender Bowel Sounds All Quadrants Present Urinary Elimination Voiding, no difficulties Status N/A Skin Temperature Warm Skin Description Schriever Skin Integrity Intact Neurological Symptoms Patient denies Extremity Movement Equal Characteristics of Speech Clear Level of Consciousness Alert Strength All Extremities Strong Tone All Extremities Normal Sensation All Extremities Intact Affect/Behavior Appropriate Orientation Oriented x 4 Sensory Deficits None Infectious Disease Symptoms Patient states no symptoms Infectious Disease Recent Exposure No Alcohol and Drug Use No Employee of Institutional Living No Health Care Employee No History of Exposure to TB No History of Positive Chest X-Ray for TB No History of Positive TB Skin Test No Homeless No Known Immunosuppression No Recent Immigrant No Resident of Institutional Living No Bloody Sputum No Fatigue No Fever No Loss of Appetite No Night Sweats No Persistent Cough > 3 Weeks No Weight Loss No Allergies No Consent Form Signed Yes Patient Dressed In Hospital gown History & Physical Update On Chart Yes History & Physical On Chart Yes Barriers to Learning None evident Teaching Method Explanation, Printed materials Preferred Written Language Swazi Preferred Spoken Language Swazi Information Given by Patient Patient's Current Physicians Derek Castaneda Discharge To, Anticipated Home independently Activity Status ADL Awake NPO Status Maintained Standard Safety ID band on, Call device within reach, Bed in low position, Wheels locked, Upper/Half-Length side-rails up, Safety level maintained Prev Test Positive/Diagnosis w/COVID-19 No Current Quarantine/Isolated any Illness No Any Contact with Sick Animals/Birds No Traveled Anywhere in Last 30 Days No Allergy Band on and Verified No Patient ID Band on and Verified Yes Implants Verified Yes Pacemaker/AICD Verified Yes Last Fluid Intake 11/17/2022 4:30 Last Food Intake 11/16/2022 2:00 N/A Personal Devices, Patient Valuables None Admission Note-Nursing Procedure/Therapy Intake . Assessment and Plan [place] [employer] (ASA) physical status classification: Class III. Anesthetic Preoperative Plan Premedication: intravenous. Anesthetic technique: MAC. Induction: intravenously. Postoperative pain management: Per surgeon. Risks discussed: nausea, vomiting, headache, sore throat, dental injury, hypotension, allergic reaction, serious complications. Informed consent: signed by patient. Digitally Signed by MARVA CARPIO on 11/17/2022 07:[address] [facility]03-15-2023 Note [place] ADMISSION HISTORY AND PHYSICIAL CHIEF COMPLAINT: Personal history of colon polyps HISTORY OF PRESENT ILLNESS: History of colon polyps with colonoscopy removed 3 years ago, no family history of colon cancer REVIEW OF SYSTEMS: Constitutional: denies weight loss Cardiovascular:denies chest pain, palpitations Respiratory:denies shortness of breath Gastrointestinal:no abd pain Musculoskeletal: no arthralgias Skin: no rashes . ACTIVE PROBLEMS: (16) Chest pain in adult (20848232) Diabetes (822309613) Disc disorder of cervical region (2742429665) Generalized anxiety disorder (57194667) GERD (gastroesophageal reflux disease) ([id number]) Gout ([id number]) History of colon polyps (9477312682) HTN (hypertension) ([id number]) Mixed hyperlipidemia (227438563) Palpitations (888427028) Panic (909967504) Penile lump (218499785) Screening for colorectal cancer (450752114) Seizure ([id number]) SOB - Shortness of breath (124960440) URI with cough and congestion (83400426) MEDICATIONS: Active Inpt Meds: None Active PRN Meds: None One Time Meds: None Active IV Meds: Lactated Ringers Infusion 1,000 mL Start: 11/17/22 6:44:00 EDT, Rate: 20 mL/hr, 11/17/22 6:44:00 EDT ALLERGIES: (1) NKA FAMILY HISTORY: SOCIAL HISTORY: PHYSICAL EXAM: VITALS: [id number](kg) 11/17 06:4736.4--4701802--92/15 88.6 24 Hr Tmax: 36.4 at 11/17 06:47 36 Hr Tmax: 36.4 at 11/17 06:47 Vital Signs are the last 5 in the past 48 hours. Weights display the last 5 within 7 days. Initial Wt: 11/17 88.6 kg 195 lb Current Wt: 11/17 88.6 kg 195 lb physical exam alert and oriented cardio; regular without murmur pulm; clear abd; soft, nontender LABS: 36hr Labs 11/17 0647 Blood Glucose, [id number] Blood Glucose, [id number] DIAGNOSTICS: IMPRESSION: History of colon polyps PLAN: Colonoscopy and possible polypectomy was discussed in the office. Risk, benefits, prep and sedationwere discussed Digitally Signed by ODALYS JAMES DO on 11/17/2022 07:[address] [facility] Future Appointments Appointment Date:07/23/2021 04:00:00 PM Scheduled Provider:JACK LOPEZ MD Location:[facility] Appointment Type:PC OV [facility] Evaluation + Plan note Future Appointments Appointment Date:07/27/2022 04:30:00 PM Scheduled Provider:DEREK CASTANEDA DO Location:[facility] Appointment Type: OV [facility] Evaluation + Plan note Future Appointments Appointment Date:01/26/2023 04:30:00 PM Scheduled Provider:DEREK CASTANEDA DO Location:[facility] Appointment Type: OV [facility] Hospital course Narrative No data available for this section [facility] Hospital Discharge instructions No data available for this section [facility] Progress note No data available for this section [facility] Summary Purpose Family History No Family History Records FoundNo Family History Records Found Advance Directives No Advanced Directives Records FoundNo Advanced Directives Records Found Additional Source Comments (unrecognized sect ion and content) No Status Records FoundNo Status Records Found INFORMATION SOURCE (unrecogn ized section and content) DATE CREATED AUTHOR AUTHOR'S ORGANIZ ATION 03/04/2023 [facility] ([place] Care Team (unrecognized sect ion and content) Care Team Personnel Name: JACK LOPEZ MD Position: P4 Physician - Primary Care Member Role: Primary Care Physician Address: Address: [address] [place], [place] [address] Care Team Related Persons Name: HELENA ALEXANDRA Address: [address] [place] [address] [place] Name: WARREN ALEXANDRA Name: RAEANN ALEXANDRA Care Team Personnel Name: LYNSEY WEINSTEIN MD Position: [facility] Physician Member Role: Neurologist Address: Address: [address] [place] [address] Name: RUFUS GUTIÉRREZOPERATIONAL ASSISTANT Position: P4 Advanced Rack Maker Member Role: Carpenter Mold Address: Address: [address] [place] [address] Name: DEREK CASTANEDA DO Position: P4 Physician - Primary Care Member Role: Primary Care Physician Address: Address: [address] [place] [address] Care Team Related Persons Name: HELENA ALEXANDRA Address: [place] [address] [place] Name: WARREN ALEXANDRA Name: RAEANN ALEXANDRA Patient Care team informatio n (unrecognized section and content) Care Team Personnel Name: LYNSEY WEINSTEIN MD Position: [facility] Physician Member Role: Neurologist Address: Address: [address] [place] [address] Name: RUFUS GUTIÉRREZ Position: P4 Advanced Rack Maker Member Role: Carpenter Mold Address: Address: [address] [place] [address] Name: DEREK CASTANEDA DO Position: P4 Physician - Primary Care Member Role: Primary Care Physician Address: Address: [address] [place] [address] Care Team Related Persons Name: HELENA ALEXANDRA Address: [place] [address] [place] Name: WARREN ALEXANDRA Name: WARREN ALEXANDRA Address: [address] [phone] Name: RAEANN ALEXANDRA FOR RECORDS PERTAINING TO PATIENTS WHO ARE OR HAVE BEEN ENROLLED IN A CHEMICAL DEPENDENCY/SUBSTANCEABUSE PROGRAM, SOME INFORMATION MAY BE OMITTED. This clinical summary was aggregated from multiple sources. Caution should be exercised in using it in the provision of clinical care. This summary normalizes information from multiple sources, and as a consequence, information in this document may materially change the coding, format and clinical context of patient data. In addition, data may be omitted in some cases. CLINICAL DECISIONS SHOULD BE BASED ON THE PRIMARY CLINICAL RECORDS. [facility]. provides no warranty or guarantee of the accuracy or completeness of information in this document.
--- OUTSIDE RECORDS SUMMARY | 2023-08-31 19:51 | XMS RPT_ITS | CCD ---
Author Name Unknown Address [address] [place] [address] Organization [facility] Care Team Providers Care Jewelry Drilling Machine Operator Name Role Phone JOHN MUIR, JACK Daly Primary Care Physician [phone] DEREK CASTANEDA DO Primary Care Physician [phone] DEREK CASTANEDA DO Attending Unavailable DEREK CASTANEDA DO Primary Care Unavailable ODALYS JAMES DO [...] qDay, # 90 tab(s), 3 Refill(s), Pharmacy: [facility]/pharmacy #[id number], Gout, 175.5, cm, 10/27/22 16:05:00 [...] Blood Pressure Non-Invasive 93 1 ODALYS JAMES [employer] [facility] 11-17-2022 08:08-0400 Heart rate 87 /min ODALYS JAMES [employer] [facility] 11-17-2022 08:08-0400 Respiratory rate 20 /min ODALYS JAMES DO [facility] 11-17-2022 08:08-0400 Systolic Blood Pressure Non-Invasive 136 1 ODALYS JAMES [employer] [facility] 11-17-2022 08:03-0400 Diastolic Blood Pressure Non-Invasive 93 1 ODALYSVelasquez JAMES [employer] [facility] 11-17-2022 08:03-0400 Heart rate 81 /min ODALYS JACOB DO [facility] 11-17-2022 08:03-0400 Respiratory rate 19 /min ODALYS JACOB DO [facility] 11-17-2022 08:03-0400 Systolic Blood Pressure Non-Invasive 125 1 ODALYS JACOB DO [facility] 11-17-2022 07:58-0400 Diastolic Blood Pressure Non-Invasive 86 1 ODALYS JACOB DO [facility] 11-17-2022 07:58-0400 Heart rate 87 /min ODALYS JACOB DO [facility] 11-17-2022 07:58-0400 Respiratory rate 20 /min ODALYS JACOB DO [facility] 11-17-2022 07:58-0400 Systolic Blood Pressure Non-Invasive 124 1 ODALYS JACOB DO [facility] 11-17-2022 07:35-0400 Respiratory Rate - Anes 15 br/min ODALYS JACOB DO [facility] 11-17-2022 07:30-0400 Respiratory Rate - Anes 19 br/min ODALYS JACOB DO [facility] 11-17-2022 07:28-0400 Body temperature 32 [degF] ODALYS JACOB DO [facility] 11-17-2022 07:25-0400 Respiratory Rate - Anes 10 br/min ODALYS JACOB DO [facility] 11-17-2022 06:47-0400 Blood Pressure Cuff Size ODALYS JACOB DO [facility] 11-17-2022 06:47-0400 Blood Pressure Location ODALYS JAMES DO [facility] 11-17-2022 06:47-0400 Blood Pressure Method ODALYS JAMES DO [facility] 11-17-2022 06:47-0400 Body height 175.5 cm ODALYS JAMES DO [facility] 11-17-2022 06:47-0400 Body temperature 97.52 [degF] ODALYS JAMES DO [facility] 11-17-2022 06:47-0400 Body weight 88.6 kg ODALYS JAMES DO [facility] 11-17-2022 06:47-0400 Body weight 28.77 kg/m2 ODALYS JAMES DO [facility] 11-17-2022 06:47-0400 Heart rate 101 /min ODALYS AJMES DO [facility] Encounters Encounter Date Encounter Type Care Provider Facility Start: 01-26-2023 End: 01-27-2023 ambulatory STUART MCHUGH SERVICE DOG TRAINER-BMET Facility:A Start: 11-17-2022 End: 11-17-2022 ambulatory ODALYS JAMES DO Facility:B Start: 11-17-2022 End: 11-17-2022 Minor Procedure ODALYSVelasquez JAMES DO [facility] Start: 10-27-2022 End: 11-01-2022 ambulatory DEREK CASTANEDA DO Facility:B Start: 10-27-2022 End: 10-31-2022 Outreach Lab DEREK CASTANEDA DO [facility] Start: 07-20-2022 End: 07-21-2022 ambulatory JACK LOPEZ MD Facility:B Start: 07-20-2022 End: 07-20-2022 Patient encounter procedure JACK LOPEZ MD [facility] Start: 07-16-2021 End: 07-16-2021 Patient encounter procedure JACK LOPEZ MD [facility] Procedures Date Procedure Procedure Detail Performing Clinician Start: 11-17-2022 Colonoscopy ODALYS JAMES DO Start: 09-05-2019 Colonoscopy JACK BECKER MD Start: 09-05-1992 Cyst - pilonidal (disorder) JACK LOPEZ MD Tonsillectomy and adenoidectomy JACK LOPEZ MD Immunizations Immunization Date Immunization Notes Care Provider [facility] 08-20-2021 SARS-CoV-2 (COVID-19 ) mRNA-1273 vaccine JACK LOPEZ MD [facility] 12-18-2020 SARS-CoV-2 (COVID-19 ) mRNA-1273 vaccine JACK LOPEZ MD [facility] Payers Date Payer Category Payer Unknown [id number] 2022 Unknown [id number] 2019 Unknown [id number] 1970 Unknown [id number] [id number] [id number] 1970 Unknown [id number] 2.16.8 [id number] 1971 Unknown [id number] 2.16.8 [id number] 1971 Unknown [id number] 2.16.8 [id number] Social History Date Type Detail Facility Start: 07-21-2020 Never smoked tobacco (f inding) [facility] Medical Equipment Procedure Code Equipment Code Equipment [...] rx, # 200 EA, 3 Refill(s), Pharmacy: [facility]/pharmacy #[id number], Diabetes, 176.4, cm, 01/27/22 16:35:00 EDT, Height, 93, kg, 01/27/22 16:35:00 EDT, Dosing Weight Start: 03-02-2022 See Instructions , FreeStyle Lancets 28G #100 use as directed. Dx Diabetes tests bid, # 200 EA, 3 Refill(s), Pharmacy: [facility]/pharmacy #[id number], Diabetes, 177.8, cm, 09/28/21 15:22:00 [...] supply, # 30 EA, 0 Refill(s), [id number], Controlled diabetes mellitus type II without complication, 177, cm, 01/22/21 15:35:00 EDT, Height, 97.6, kg, 01/22/21 15:35:00 EDT, Dosing Weight Start: 01-23-2021 See Instructions , Free Style test strips Patient tests 2-3 times daily. Dispense 90 day rx, # 200 EA, 3 Refill(s), Pharmacy: [facility]/pharmacy #[id number], Diabetes, 176.4, cm, 01/27/22 16:35:00 EDT, Height, 93, kg, 01/27/22 16:35:00 EDT, Dosing Weight Start: 03-02-2022 See Instructions , FreeStyle Lancets 28G #100 use as directed. Dx Diabetes tests bid, # 200 EA, 3 Refill(s), Pharmacy: [facility]/pharmacy #[id number], Diabetes, 177.8, cm, 09/28/21 15:22:00 EST, Height, 95, kg, 09/28/21 15:22:00 EST, Dosing Weight Start: 12-30-2021 FREESTYLE 28G LANCETS, See Instructions, USE DIRECTED, # 100 unknown unit, 3 Refill(s), 177.8, cm, 10/16/19 15:10:00 EST, Height, 94.5, kg, 10/16/19 15:10:00 EST, Dosing Weight Start: 01-18-2020 See Instructions , # 100 strip, Refill #: 12 Total Refills: 12, TEST TWICE A DAY, [facility]/pharmacy #[id number] Start: 03-15-2019 FREESTYLE LITE T EST STRIP, See Instructions, TEST TWICE A DAY, # 50 strip, 25 Refill(s), 177, cm, 02/04/20 15:43:00 EDT, Height, 93.2, kg, 02/04/20 15:43:00 EDT, Dosing Weight Start: 04-11-2020 See Instructions , qs 1 month supply, # 30 EA, 0 Refill(s), [id number], Controlled diabetes mellitus type II without complication, 177, cm, 01/22/21 15:35:00 EDT, Height, 97.6, kg, 01/22/21 15:35:00 EDT, Dosing Weight Start: 01-23-2021 See Instructions , Free Style test strips Patient tests 2-3 times daily. Dispense 90 day rx, # 200 EA, 3 Refill(s), [id number], Diabetes, 176.4, cm, 01/27/22 16:35:00 EDT, Height, 93, kg, 01/27/22 16:35:00 EDT, Dosing Weight Start: 03-02-2022 See Instructions , FreeStyle Lancets 28G #100 use as directed. Dx Diabetes tests bid, # 200 EA, 3 Refill(s), [id number], Diabetes, 177.8, cm, 09/28/21 15:22:00 EST, Height, 95, kg, 09/28/21 15:22:00 EST, Dosing Weight Start: 12-30-2021 FREESTYLE 28G LANCETS, See Instructions, USE DIRECTED, # 100 unknown unit, 3 Refill(s), 177.8, cm, 10/16/19 15:10:00 EST, Height, 94.5, kg, 10/16/19 15:10:00 EST, Dosing Weight Start: 01-18-2020 See Instructions , # 100 strip, Refill #: 12 Total Refills: 12, TEST TWICE A DAY, [facility]/pharmacy #[id number] Start: 03-15-2019 FREESTYLE LITE T EST STRIP, See Instructions, TEST TWICE A DAY, # 50 strip, 25 Refill(s), 177, cm, 02/04/20 15:43:00 EDT, Height, 93.2, kg, 02/04/20 15:43:00 EDT, Dosing Weight Start: 04-11-2020 See Instructions , qs 1 month supply, # 30 EA, 0 Refill(s), Pharmacy: [facility]/pharmacy #[id number], Controlled diabetes mellitus type II without complication, 177, cm, 01/22/21 15:35:00 EDT, Height, 97.6, kg, 01/22/21 15:35:00 EDT, Dosing Weight Start: 01-23-2021 Functional Status Date Assessment Result Facility 11-17-2022 Functional Status Activity Status ADL Cathryn ke [facility] 11-17-2022 Functional Status Maintained [facility] Mental Status Date Assessment Result Facility 11-17-2022 Mental Status Orientation Oriented x 4 [facility] 11-17-2022 Mental Status [facility] Clinical Notes 11-17-2022 Note Date & Type Note Facility [place] ADMISSION HISTORY AN D PHYSICIAL CHIEF COMPLAINT: [...] ACTIVE PROBLEMS: (16) Chest pain in adult (50604691) Diabetes (531756345) Disc disorder of cervical region (4997671629) Generalized anxiety disorder (07739028) GERD (gastroesophageal reflux disease) ([id number]) Gout ([id number]) History of colon polyps (4128663185) HTN (hypertension) ([id number]) Mixed hyperlipidemia (603168262) Palpitations (610613207) Panic (303430420) Penile lump (293463024) Screening for colorectal cancer (785940215) Seizure ([id number]) SOB - Shortness of breath (098714257) URI with cough and congestion (88847789) MEDICATIONS: Active Inpt Meds: None Active PRN Meds: None One Time Meds: None Active IV Meds: Lactated Ringers Infusion 1,000 mL Start: 11/17/22 6:44:00 EDT, Rate: 20 mL/hr, 11/17/22 6:44:00 EDT ALLERGIES: (1) NKA FAMILY HISTORY: SOCIAL HISTORY: PHYSICAL EXAM: VITALS: RkxvebFpqkWKIaqjzLSWeM1LTV0RzpxUj(kg) 11/17 06:4736.4--6947346--48/15 88.6 24 Hr Tmax: 36.4 at 11/17 [...] LABS: 36hr Labs 11/17 0647 Blood Glucose, Rzebveuez650 Blood Glucose, Wwupqznhs694 DIAGNOSTICS: IMPRESSION: History of colon polyps PLAN: Colonoscopy and possible polypectomy was discussed in the office. Risk, benefits, prep and sedation were discussed Future Appointments Appointment Date:01/26/2023 04:30:00 PM Scheduled Provider:DEREK CASTANEDA DO Location:[facility] Appointment Type:[facility] 03-15-2023 Hospital Discharge instructions Patient Education 11/17/2022 [...] before eating solid foods. General instructions Take zyvn-ckc-qufsuvo and prescription medicines only as told by [...] 12/12/2016 Document Revised: 11/20/2018 Document Reviewed: 12/12/2016 [employer] Patient Education 2020 [employer] 11/17/2022 07:42:13 Colon Polyps Colon Polyps [...] 05/18/2005 Document Revised: 12/07/2018 Document Reviewed: 12/07/2018 [employer] Patient Education 2020 [employer]. 11/17/2022 07:42:03 Colonoscopy, Adult, Care After Colonoscopy, [...] a slower pace than normal. ?Eat soft, zqxt-lk-fxiulm foods. Take uxsd-vll-cinwbgf or prescription medicines only as told by [...] 04/05/2005 Document Revised: 06/14/2018 Document Reviewed: 11/02/2016 [employer] Patient Education 2020 [employer]. Follow Up Care 09/09/2022 07:43:09 With:DEREK CASTANEDA DO Address: [address] [place] [phone] When: Unknown [facility] 03-15-2023 Anesthesiology Consult note Patient: TAMANNA ALEXANDRA Age: 52 years Sex: Male : 1970 Associated Diagnoses: None Author: MARVA CARPIO APRN-IT ARCHITECTURE CONSULTANT Assessment Postanesthesia assessment Vitals: Reviewed Results: Vital signs from flowsheet : Vital Signs(Date Range: 11/16/2022 0:00 EDT -11/17/2022 7:46 EDT) . Mental status: at preoperative baseline. Respiratory function: lungs are clear to auscultation. Respiratory support: none. CV function: Normal rate. Cardiovascular support: none. Pain. Nausea status: denies nausea. Postoperative hydration status: within normal limits. Digitally Signed by MARVA CARPIO on 11/17/2022 07:46 AM [facility]03-15-2023 Summary of episode note Discharge Instructions Thank you for allowing [facility] to assist you with your healthcare needs. [...] MATTHIAS 01/26/2023 04:30 PM EDT DEREK CASTANEDA [address] [id number] Follow Up Appointments Follow Up with DEREK CASTANEDA DO When Where: [address] [place] [phone] The Following Activity and Diet Have Been [...] (Blood Glucose Test Machine) See instructions Freestyle [employer] Lite Meter Unchanged DME (Blood Glucose Test [...] before eating solid foods. General instructions Take uxha-ath-ryloftk and prescription medicines only as told by [...] 12/12/2016 Document Revised: 11/20/2018 Document Reviewed: 12/12/2016 [employer] Patient Education 2020 [employer] Colon Polyps Polyps are tissue growths [...] 05/18/2005 Document Revised: 12/07/2018 Document Reviewed: 12/07/2018 [employer] Patient Education 2020 [employer] Colonoscopy, Adult, Care After This sheet [...] slower pace than normal. ? Eat soft, blrm-uj-gyfrrc foods. Take aphy-sbe-cbtxizj or prescription medicines only as told by [...] 04/05/2005 Document Revised: 06/14/2018 Document Reviewed: 11/02/2016 [employer] Patient Education 2020 [employer] Additional Information VACCINATE! IT SAVES LIVES! Members of the community who have not yet received the COVID-19 vaccine and would like to receive it can visit one of [facility] vaccine clinics. There are many vaccine clinic locations within the [facility]. For locations and available times, please visit [email or web address].[place].gov/. It is important to note that some COVID mobile vaccine clinics are held outdoors and may be canceled in rainy or stormy conditions. To learn more about pediatric vaccinations (ages 5-11), we invite you to visit the [facility] webpage. https://www.[facility].org/pages/2205-Bfvkb-Pgidfoqzyxh-Jwdmtnljys-Xmqku-Ufp stions.htmlTo learn more about the COVID-19 vaccine, we invite you to visit the CDC website for a list of frequently asked questions. https://www.cdc.gov/coronavirus/2019-ncov/vaccines/faq.html [facility] Patient Portal Access Instructions: Stay connected with your healthcare team and access your personal medical information anytime with the [facility] Patient Portal.If you would like a full copy of your medical records, please contact the [facility] Medical Records Department, Tuesday through Tuesday between 8a.m. and 4:30p.m. Please follow the directions below to access the portal: 1.Access the email account you provided upon registration to the [facility].2.Look for an invitation email from [facility].3.Open the email and access the invitation link: Accept Invitation to [facility]4.Fill in the required salter to create your account. Sign into [email or web address] with your username and password that you [...] you will allow to register on the [facility] Patient Portal for access to your information. You can also access the [facility] Patient Portal on the [employer]. Simply click on Health Records under [employer] and then click on the [employer] logo. HOW TO SAFELY DISPOSE OF PRESCRIPTION [...] Call your local pharmacy or go to http://bit.[employer])/2U5Bz0z to find one close to you.3.Make use of household items: Use cat litter or old coffee grounds to dispose medications if other options arenot available. Mix your drugs with these household products, seal them in an airtight container andthrow it into the garbage. Call [facility]: [phone] to be sure your drugs can be [...] aware that I should contact my doctor. Patient/Cable Swager Signature: Date/Time: Relationship to Patient: Witness Name/Signature: Date/Time: [facility]03-15-2023 Anesthesiology Consult note Patient: TAMANNA ALEXANDRA Age: [...] Blood Glucose Test Machine: See Instructions, Freestyle Nenana Lite Meter, 1 EA, 0 Refill(s) Blood [...] disorder of cervical region / SNOMED CT 2526481387 / Confirmed Chest pain in adult / SNOMED CT 97638769 / Confirmed Diabetes / SNOMED CT 058381407 / Confirmed Generalized anxiety disorder / SNOMED CT 70135017 / Confirmed GERD (gastroesophageal reflux disease) / SNOMED CT [id number] / Confirmed Gout / SNOMED CT [id number] / Confirmed History of colon polyps / SNOMED CT 1288513423 / Confirmed HTN (hypertension) / SNOMED CT [id number] / Confirmed Penile lump / SNOMED CT 217424627 / Confirmed Mixed hyperlipidemia / SNOMED CT 412647938 / Confirmed Palpitations / SNOMED CT 596015360 / Confirmed Panic / SNOMED CT 468153246 / Confirmed Screening for colorectal cancer / SNOMED CT 965896236 / Confirmed Seizure / SNOMED CT [id number] / Confirmed SOB - Shortness of breath / SNOMED CT 371340917 / Confirmed URI with cough and congestion / SNOMED CT 58616826 / Confirmed, Active Problems (16) Chest pain in adult Diabetes Disc disorder of cervical region Generalized anxiety disorder GERD (gastroesophageal reflux disease) Gout History of colon polyps HTN (hypertension) Mixed hyperlipidemia Palpitations Panic Penile lump Screening for colorectal cancer Seizure SOB - Shortness of breath URI with cough and congestion Histories Past Medical History: Active HTN (hypertension) ([id number]) GERD (gastroesophageal reflux disease) ([id number]-CJ411YX28ZC0) Disc disorder of cervical region (3085520322) Diabetes (471244239) Resolved Gout ([id number]): Resolved., seizure disorder, NIDDM Family History: Cancer Mother (Raeann Alexandra) Comments: 03/28/2019 11:41 KELLIE Stinson Mantle Cell non-hodgkins lymphoma Anxiety Mother (Raeann Alexandra) Sister (Maryse Porras) Hypothyroidism Mother (Raeann Alexandra) Heart attack Father (Helena Alexandra) Bipolar Mother (Raeann Alexandra) Diabetes Father (Helena Alexandra) Procedure history: Colonoscopy (571768489) in the month of 09/2019 at 49 Years. Cyst - pilonidal (362629309) in 1992 at 23 Years. Tonsillectomy and adenoidectomy (645854118). Social History Social & Psychosocial Habits Alcohol [...] 14:40 - KELLIE Lantigua Home/Environment 03/28/2019 Primary Shipping And Receiving Clerk: self Nutrition/Health 07/27/2022 Caffeine intake amount: tea/soda- [...] Admission Weight 88.6 kg Weight Method Stated [place] Body Weight 70.92 kg BSA Admission 2.05 [...] Surgeon SN - CAt - Role Performed IT ARCHITECTURE CONSULTANT SN - CAt - Role Performed Composition Molder 1 SN - CAt - Role Performed Platen Grinder 11/17/2022 7:12 EDT [place] History and Physical 11/17/2022 6:59 EDT IV [...] Person #1 We May Share ILA Zamorano [id number] Designated Person #1 Relationship Spouse Height 175.5 cm Admission Weight 88.6 kg Weight Method Stated [place] Body Weight 70.92 kg BSA Admission 2.05 [...] Status N/A Skin Temperature Warm Skin Description Rodey Skin Integrity Intact Neurological Symptoms Patient denies [...] Method Explanation, Printed materials Preferred Written Language Bahraini Preferred Spoken Language Bahraini Information Given by Patient Patient's Current Physicians [...] Note-Nursing Procedure/Therapy Intake . Assessment and Plan [place] Society of Anesthesiologists (ASA) physical status classification: Class III. Anesthetic Preoperative Plan Premedication: intravenous. Anesthetic technique: MAC. Induction: intravenously. Postoperative pain management: Per surgeon. Risks discussed: nausea, vomiting, headache, sore throat, dental injury, hypotension, allergic reaction, serious complications. Informed consent: signed by patient. Digitally Signed by MARVA CARPIO on 11/17/2022 07:18 AM [facility]03-15-2023 Note [place] ADMISSION HISTORY AND PHYSICIAL CHIEF COMPLAINT: Personal history of colon polyps HISTORY OF PRESENT ILLNESS: History of colon polyps with colonoscopy removed 3 years ago, no family history of colon cancer REVIEW OF SYSTEMS: Constitutional: denies weight loss Cardiovascular:denies chest pain, palpitations Respiratory:denies shortness of breath Gastrointestinal:no abd pain Musculoskeletal: no arthralgias Skin: no rashes . ACTIVE PROBLEMS: (16) Chest pain in adult (88250073) Diabetes (935857249) Disc disorder of cervical region (0056193630) Generalized anxiety disorder (67808125) GERD (gastroesophageal reflux disease) ([id number]-JU702QA48RT0) Gout ([id number]-[id number]) History of colon polyps (9530727586) HTN (hypertension) (4635MF8C-[id number]-SXP305XZ7838) Mixed hyperlipidemia (740873045) Palpitations (968798187) Panic (147260397) Penile lump (486245377) Screening for colorectal cancer (940791438) Seizure ([id number]) SOB - Shortness of breath (902187756) URI with cough and congestion (38900243) MEDICATIONS: Active Inpt Meds: None Active PRN Meds: None One Time Meds: None Active IV Meds: Lactated Ringers Infusion 1,000 mL Start: 11/17/22 6:44:00 EDT, Rate: 20 mL/hr, 11/17/22 6:44:00 EDT ALLERGIES: (1) NKA FAMILY HISTORY: SOCIAL HISTORY: PHYSICAL EXAM: VITALS: OljpznKxosMQSomqwLAUaR3IUT1JnilPk(kg) 11/17 06:4736.4--4659837--22/15 88.6 24 Hr Tmax: 36.4 at 11/17 [...] LABS: 36hr Labs 11/17 0647 Blood Glucose, Orhuencyd217 Blood Glucose, Dndzftmyv741 DIAGNOSTICS: IMPRESSION: History of colon polyps PLAN: Colonoscopy and possible polypectomy was discussed in the office. Risk, benefits, prep and sedationwere discussed Digitally Signed by ODALYS JAMES DO on 11/17/2022 07:13 AM [facility] Future Appointments Appointment Date:07/23/2021 04:00:00 PM Scheduled Provider:JACK LOPEZ MD Location:[facility] Appointment Type:PC OV [facility] Evaluation + Plan note Future Appointments Appointment Date:07/27/2022 04:30:00 PM Scheduled Provider:DEREK CASTANEDA DO Location:[facility] Appointment Type: OV [facility] Evaluation + Plan note Future Appointments Appointment Date:01/26/2023 04:30:00 PM Scheduled Provider:DEREK CASTANEDA DO Location:[facility] Appointment Type: OV [facility] Hospital course Narrative No data available for this section [facility] Hospital Discharge instructions No data available for this section [facility] Progress note No data available for this section [facility] Summary Purpose Family History No Family History Records FoundNo Family History Records Found Advance Directives No Advanced Directives Records FoundNo Advanced Directives Records Found Additional Source Comments (unrecognized sect ion and content) No Status Records FoundNo Status Records Found INFORMATION SOURCE (unrecogn ized section and content) DATE CREATED AUTHOR AUTHOR'S ORGANIZ ATION 03/04/2023 [facility] ([place]) Care Team (unrecognized sect ion and content) Care Team Personnel Name: JACK LOPEZ MD Position: P4 Physician - Primary Care Member Role: Primary Care Physician Address: Address: [address] [place], [place] [address] Care Team Related Persons Name: HELENA ALEXANDRA Address: [address] [place] [address] [place] Name: WARREN ALEXANDRA Name: RAEANN ALEXANDRA Care Team Personnel Name: LYNSEY WEINSTEIN MD Position: [facility] Physician Member Role: Neurologist Address: Address: [address] [place] [address] Name: RUFUS GUTIÉRREZBMET Position: P4 Advanced Head Cashier Member Role: Marine Electrician Helper Address: Address: [address] [place] [address] Name: DEREK CASTANEDA DO Position: P4 Physician - Primary Care Member Role: Primary Care Physician Address: Address: [address] [place] [address] Care Team Related Persons Name: HELENA ALEXANDRA Address: [place] [address] [place] Name: WARREN ALEXANDRA Name: RAEANN ALEXANDRA Patient Care team informatio n (unrecognized section and content) Care Team Personnel Name: LYNSEY WEINSTEIN MD Position: [facility] Physician Member Role: Neurologist Address: Address: [address] [place] [address] Name: RUFUS GUTIÉRREZ Position: P4 Advanced Head Cashier Member Role: Marine Electrician Helper Address: Address: [address] [place] [address] Name: DEREK CASTANEDA DO Position: P4 Physician - Primary Care Member Role: Primary Care Physician Address: Address: [address] [place] [address] Care Team Related Persons Name: HELENA ALEXANDRA Address: [place] [address] [place] Name: WARREN ALEXANDRA Name: WARREN ALEXANDRA Address: [address] [phone] Name: RAEANN ALEXANDRA FOR RECORDS PERTAINING TO [...] BE BASED ON THE PRIMARY CLINICAL RECORDS. [facility] provides no warranty or guarantee of the accuracy or completeness of information in this document.
--- OUTSIDE RECORDS SUMMARY | 2023-08-31 19:51 | XMS RPT_ITS | CCD ---
Author Name Unknown Address [address] [place] [address] Organization [facility] Care Team Providers Care Painter Supervisor Name Role Phone JOHN MUIR, JACK Daly Primary Care Physician [phone] DEREK CASTANEDA DO Primary Care Physician [phone] DEREK CASTANEDA DO Attending Unavailable DEREK CASTANEDA DO Primary Care Unavailable ODALYS JAMES DO Attending Unavailable DREEK CASTANEDA DO Primary Care Unavailable JACK OLPEZ MD Attending Unavailable JACK LOPEZ MD Primary Care Unavailable STUART GUZMAN Attending Unava ilable DEREK CASTANEDA DO Primary Care Unavailable Medications Current Medications Medication Drug Class(es) Dates Sig (Normalized) Sig (Original) allopurinol 300 mg oral tablet (4 sources) Xanthine Oxidase Inhibitor Start: 10-27-2022 allopurinol 300 mg oral tablet Dose : 300 mg = 1 tab(s), Oral, qDay, # 90 tab(s), 3 Refill(s), Pharmacy: [facility]/pharmacy #[id number], Gout, 175.5, cm, 10/27/22 16:05:00 EST, [...] Blood Pressure Non-Invasive 93 1 ODALYS JAMES Pixlee [facility] 11-17-2022 08:08-0400 Heart rate 87 /min ODALYS JAMES Pixlee [facility] 11-17-2022 08:08-0400 Respiratory rate 20 /min ODALYS JAMES DO [facility] 11-17-2022 08:08-0400 Systolic Blood Pressure Non-Invasive 136 1 ODALYS JAMES Pixlee [facility] 11-17-2022 08:03-0400 Diastolic Blood Pressure Non-Invasive 93 1 ODALYSVelasquez JAMES Pixlee [facility] 11-17-2022 08:03-0400 Heart rate 81 /min ODALYS JACOB DO [facility] 11-17-2022 08:03-0400 Respiratory rate 19 /min ODALYS JACOB DO [facility] 11-17-2022 08:03-0400 Systolic Blood Pressure Non-Invasive 125 1 ODALYS JACOB DO [facility] 11-17-2022 07:58-0400 Diastolic Blood Pressure Non-Invasive 86 1 ODALYS JACOB DO [facility] 11-17-2022 07:58-0400 Heart rate 87 /min ODALYS JACOB DO [facility] 11-17-2022 07:58-0400 Respiratory rate 20 /min ODALYS JACOB DO [facility] 11-17-2022 07:58-0400 Systolic Blood Pressure Non-Invasive 124 1 ODALYS JACOB DO [facility] 11-17-2022 07:35-0400 Respiratory Rate - Anes 15 br/min ODALYS JACOB DO [facility] 11-17-2022 07:30-0400 Respiratory Rate - Anes 19 br/min ODALYS JACOB DO [facility] 11-17-2022 07:28-0400 Body temperature 32 [degF] ODALYS JACOB DO [facility] 11-17-2022 07:25-0400 Respiratory Rate - Anes 10 br/min ODALYS JACOB DO [facility] 11-17-2022 06:47-0400 Blood Pressure Cuff Size ODALYS JACOB DO [facility] 11-17-2022 06:47-0400 Blood Pressure Location ODALYS JAMES DO [facility] 11-17-2022 06:47-0400 Blood Pressure Method ODALYS JAMES DO [facility] 11-17-2022 06:47-0400 Body height 175.5 cm ODALYS JAMES DO [facility] 11-17-2022 06:47-0400 Body temperature 97.52 [degF] ODALYS JAMES DO [facility] 11-17-2022 06:47-0400 Body weight 88.6 kg ODALYS JAMES DO [facility] 11-17-2022 06:47-0400 Body weight 28.77 kg/m2 ODALYS JAMES DO [facility] 11-17-2022 06:47-0400 Heart rate 101 /min ODALYS JAMES DO [facility] Encounters Encounter Date Encounter Type Care Provider Facility Start: 01-26-2023 End: 01-27-2023 ambulatory STUART MCHUGH HAND SUTURE WINDER-COLD WORKING INSPECTOR Facility:A Start: 11-17-2022 End: 11-17-2022 ambulatory ODALYS JAMES DO Facility:B Start: 11-17-2022 End: 11-17-2022 Minor Procedure ODALYSVelasquez JAMES DO [facility] Start: 10-27-2022 End: 11-01-2022 ambulatory DEREK CASTANEDA DO Facility:B Start: 10-27-2022 End: 10-31-2022 Outreach Lab DEREK CASTANEDA DO [facility] Start: 07-20-2022 End: 07-21-2022 ambulatory JACK LOPEZ MD Facility:B Start: 07-20-2022 End: 07-20-2022 Patient encounter procedure JACK LOPEZ MD [facility] Start: 07-16-2021 End: 07-16-2021 Patient encounter procedure JACK LOPEZ MD [facility] Procedures Date Procedure Procedure Detail Performing Clinician Start: 11-17-2022 Colonoscopy ODALYS JMAES DO Start: 09-05-2019 Colonoscopy JACK BECKER MD Start: 09-05-1992 Cyst - pilonidal (disorder) JACK LOPEZ MD Tonsillectomy and adenoidectomy JACK LOPEZ MD Immunizations Immunization Date Immunization Notes Care Provider [facility] 08-20-2021 SARS-CoV-2 (COVID-19 ) mRNA-1273 vaccine JACK LOPEZ MD [facility] 12-18-2020 SARS-CoV-2 (COVID-19 ) mRNA-1273 vaccine JACK LOPEZ MD [facility] Payers Date Payer Category Payer Unknown [id number] 2022 Unknown [id number] 2019 Unknown [id number] 1970 Unknown [id number] [id number] [id number] 1970 Unknown [id number] 2.16.8 [id number] 1970 Unknown [id number] 2.16.8 [id number] 1970 Unknown [id number] 2.16.8 [id number] Social History Date Type Detail Facility Start: 07-21-2020 Never smoked tobacco (f inding) [facility] Medical Equipment Procedure Code Equipment Code [...] rx, # 200 EA, 3 Refill(s), Pharmacy: [facility]/pharmacy #[id number], Diabetes, 176.4, cm, 01/27/22 16:35:00 EDT, Height, 93, kg, 01/27/22 16:35:00 EDT, Dosing Weight Start: 03-02-2022 See Instructions , FreeStyle Lancets 28G #100 use as directed. Dx Diabetes tests bid, # 200 EA, 3 Refill(s), Pharmacy: [facility]/pharmacy #[id number], Diabetes, 177.8, cm, 09/28/21 15:22:00 EST, [...] supply, # 30 EA, 0 Refill(s), [id number], Controlled diabetes mellitus type II without complication, 177, cm, 01/22/21 15:35:00 EDT, Height, 97.6, kg, 01/22/21 15:35:00 EDT, Dosing Weight Start: 01-23-2021 See Instructions , Free Style test strips Patient tests 2-3 times daily. Dispense 90 day rx, # 200 EA, 3 Refill(s), Pharmacy: [facility]/pharmacy #[id number], Diabetes, 176.4, cm, 01/27/22 16:35:00 EDT, Height, 93, kg, 01/27/22 16:35:00 EDT, Dosing Weight Start: 03-02-2022 See Instructions , FreeStyle Lancets 28G #100 use as directed. Dx Diabetes tests bid, # 200 EA, 3 Refill(s), Pharmacy: [facility]/pharmacy #[id number], Diabetes, 177.8, cm, 09/28/21 15:22:00 EST, Height, 95, kg, 09/28/21 15:22:00 EST, Dosing Weight Start: 12-30-2021 FREESTYLE 28G LANCETS, See Instructions, USE DIRECTED, # 100 unknown unit, 3 Refill(s), 177.8, cm, 10/16/19 15:10:00 EST, Height, 94.5, kg, 10/16/19 15:10:00 EST, Dosing Weight Start: 01-18-2020 See Instructions , # 100 strip, Refill #: 12 Total Refills: 12, TEST TWICE A DAY, [facility]/pharmacy #[id number] Start: 03-15-2019 FREESTYLE LITE T EST STRIP, See Instructions, TEST TWICE A DAY, # 50 strip, 25 Refill(s), 177, cm, 02/04/20 15:43:00 EDT, Height, 93.2, kg, 02/04/20 15:43:00 EDT, Dosing Weight Start: 04-11-2020 See Instructions , qs 1 month supply, # 30 EA, 0 Refill(s), [id number], Controlled diabetes mellitus type II without complication, 177, cm, 01/22/21 15:35:00 EDT, Height, 97.6, kg, 01/22/21 15:35:00 EDT, Dosing Weight Start: 01-23-2021 See Instructions , Free Style test strips Patient tests 2-3 times daily. Dispense 90 day rx, # 200 EA, 3 Refill(s), [id number], Diabetes, 176.4, cm, 01/27/22 16:35:00 EDT, Height, 93, kg, 01/27/22 16:35:00 EDT, Dosing Weight Start: 03-02-2022 See Instructions , FreeStyle Lancets 28G #100 use as directed. Dx Diabetes tests bid, # 200 EA, 3 Refill(s), [id number], Diabetes, 177.8, cm, 09/28/21 15:22:00 EST, Height, 95, kg, 09/28/21 15:22:00 EST, Dosing Weight Start: 12-30-2021 FREESTYLE 28G LANCETS, See Instructions, USE DIRECTED, # 100 unknown unit, 3 Refill(s), 177.8, cm, 10/16/19 15:10:00 EST, Height, 94.5, kg, 10/16/19 15:10:00 EST, Dosing Weight Start: 01-18-2020 See Instructions , # 100 strip, Refill #: 12 Total Refills: 12, TEST TWICE A DAY, [facility]/pharmacy #[id number] Start: 03-15-2019 FREESTYLE LITE T EST STRIP, See Instructions, TEST TWICE A DAY, # 50 strip, 25 Refill(s), 177, cm, 02/04/20 15:43:00 EDT, Height, 93.2, kg, 02/04/20 15:43:00 EDT, Dosing Weight Start: 04-11-2020 See Instructions , qs 1 month supply, # 30 EA, 0 Refill(s), Pharmacy: [facility]/pharmacy #[id number], Controlled diabetes mellitus type II without complication, 177, cm, 01/22/21 15:35:00 EDT, Height, 97.6, kg, 01/22/21 15:35:00 EDT, Dosing Weight Start: 01-23-2021 Functional Status Date Assessment Result Facility 11-17-2022 Functional Status Activity Status ADL Cathryn ke [facility] 11-17-2022 Functional Status Maintained [facility] Mental Status Date Assessment Result Facility 11-17-2022 Mental Status Orientation Oriented x 4 [facility] 11-17-2022 Mental Status [facility] Clinical Notes 11-17-2022 Note Date & Type Note Facility [place] ADMISSION HISTORY AN D PHYSICIAL CHIEF COMPLAINT: [...] ACTIVE PROBLEMS: (16) Chest pain in adult (32013598) Diabetes (441523274) Disc disorder of cervical region (4345392406) Generalized anxiety disorder (62657336) GERD (gastroesophageal reflux disease) ([id number]) Gout ([id number]) History of colon polyps (9989256985) HTN (hypertension) ([id number]) Mixed hyperlipidemia (511613842) Palpitations (777822880) Panic (802273786) Penile lump (873845289) Screening for colorectal cancer (292622820) Seizure ([id number]) SOB - Shortness of breath (048252763) URI with cough and congestion (44240502) MEDICATIONS: Active Inpt Meds: None Active PRN Meds: None One Time Meds: None Active IV Meds: Lactated Ringers Infusion 1,000 mL Start: 11/17/22 6:44:00 EDT, Rate: 20 mL/hr, 11/17/22 6:44:00 EDT ALLERGIES: (1) NKA FAMILY HISTORY: SOCIAL HISTORY: PHYSICAL EXAM: VITALS: HjyhppYsioJWOrwmnAHJqG3CKC5RhitYo(kg) 11/17 06:4736.4--4709968--07/15 88.6 24 Hr Tmax: 36.4 at 11/17 [...] LABS: 36hr Labs 11/17 0647 Blood Glucose, Siqhnnlxd071 Blood Glucose, Fkyufbkos774 DIAGNOSTICS: IMPRESSION: History of colon polyps PLAN: Colonoscopy and possible polypectomy was discussed in the office. Risk, benefits, prep and sedation were discussed Future Appointments Appointment Date:01/26/2023 04:30:00 PM Scheduled Provider:DEREK CASTANEDA DO Location:[facility] Appointment Type:[facility] 03-15-2023 Hospital Discharge instructions Patient Education 11/17/2022 [...] before eating solid foods. General instructions Take kksk-pht-mlwohqx and prescription medicines only as told by [...] 12/12/2016 Document Revised: 11/20/2018 Document Reviewed: 12/12/2016 [employer] Patient Education 2020 [employer] 11/17/2022 07:42:13 Colon Polyps Colon Polyps [...] 05/18/2005 Document Revised: 12/07/2018 Document Reviewed: 12/07/2018 [employer] Patient Education 2020 [employer]. 11/17/2022 07:42:03 Colonoscopy, Adult, Care After Colonoscopy, [...] a slower pace than normal. ?Eat soft, exxd-xt-hpgwie foods. Take uklm-bjk-adhxscr or prescription medicines only as told by [...] 04/05/2005 Document Revised: 06/14/2018 Document Reviewed: 11/02/2016 [employer] Patient Education 2020 [employer]. Follow Up Care 09/09/2022 07:43:09 With:DEREK CASTANEDA DO Address: [address] [place] [phone] When: Unknown [facility] 03-15-2023 Anesthesiology Consult note Patient: TAMANNA ALEXANDRA Age: 52 years Sex: Male : 1970 Associated Diagnoses: None Author: MARVA CARPIO APRN-SUPERVISOR INSTRUMENT MECHANICS Assessment Postanesthesia assessment Vitals: Reviewed Results: Vital signs from flowsheet : Vital Signs(Date Range: 11/16/2022 0:00 EDT -11/17/2022 7:46 EDT) . Mental status: at preoperative baseline. Respiratory function: lungs are clear to auscultation. Respiratory support: none. CV function: Normal rate. Cardiovascular support: none. Pain. Nausea status: denies nausea. Postoperative hydration status: within normal limits. Digitally Signed by MARVA CARPIO on 11/17/2022 07:46 AM [facility]03-15-2023 Summary of episode note Discharge Instructions Thank you for allowing [facility] to assist you with your healthcare needs. [...] MATTHIAS 01/26/2023 04:30 PM EDT DEREK CASTANEDA [address] [address] Follow Up Appointments Follow Up with DEREK CASTANEDA DO When Where: [address] [place] [phone] The Following Activity and Diet Have Been [...] (Blood Glucose Test Machine) See instructions Freestyle [place] Lite Meter Unchanged DME (Blood Glucose Test [...] before eating solid foods. General instructions Take mllk-xng-tdftlir and prescription medicines only as told by [...] 12/12/2016 Document Revised: 11/20/2018 Document Reviewed: 12/12/2016 [employer] Patient Education 2020 [employer] Colon Polyps Polyps are tissue growths [...] 05/18/2005 Document Revised: 12/07/2018 Document Reviewed: 12/07/2018 [employer] Patient Education 2020 [employer] Colonoscopy, Adult, Care After This sheet [...] slower pace than normal. ? Eat soft, mzpq-ie-bbwdtd foods. Take idxo-czz-jywesfn or prescription medicines only as told by [...] 04/05/2005 Document Revised: 06/14/2018 Document Reviewed: 11/02/2016 [employer] Patient Education 2020 [employer] Additional Information VACCINATE! IT SAVES LIVES! Members of the community who have not yet received the COVID-19 vaccine and would like to receive it can visit one of [facility] vaccine clinics. There are many vaccine clinic locations within the [facility]. For locations and available times, please visit [email or web address].[place].gov/. It is important to note that some COVID mobile vaccine clinics are held outdoors and may be canceled in rainy or stormy conditions. To learn more about pediatric vaccinations (ages 5-11), we invite you to visit the [facility] webpage. https://www.[facility].org/pages/1553-Kaaor-Gnlpzszcale-Ojmertdotn-Omyze-Lyf stions.htmlTo learn more about the COVID-19 vaccine, we invite you to visit the CDC website for a list of frequently asked questions. https://www.cdc.gov/coronavirus/2019-ncov/vaccines/faq.html [employer] Patient Portal Access Instructions: Stay connected with your healthcare team and access your personal medical information anytime with the [employer] Patient Portal.If you would like a full copy of your medical records, please contact the [facility] Medical Records Department, Tuesday through Tuesday between 8a.m. and 4:30p.m. Please follow the directions below to access the portal: 1.Access the email account you provided upon registration to the [facility].2.Look for an invitation email from [facility].3.Open the email and access the invitation link: Accept Invitation to [employer]4.Fill in the required salter to create your account. Sign into [email or web address] with your username and password that you [...] you will allow to register on the [employer] Patient Portal for access to your information. You can also access the [facility] Patient Portal on the [employer]. Simply click on Health Records under [employer] and then click on the [employer] logo. HOW TO SAFELY DISPOSE OF PRESCRIPTION [...] Call your local pharmacy or go to http://bit.Easydiagnosis/7L5Ro9d to find one close to you.3.Make use of household items: Use cat litter or old coffee grounds to dispose medications if other options arenot available. Mix your drugs with these household products, seal them in an airtight container andthrow it into the garbage. Call [facility]: [phone] to be sure your drugs can be [...] aware that I should contact my doctor. Patient/Fitness Professional Signature: Date/Time: Relationship to Patient: Witness Name/Signature: Date/Time: [facility]03-15-2023 Anesthesiology Consult note Patient: TAMANNA ALEXANDRA [...] Blood Glucose Test Machine: See Instructions, Freestyle [place] Lite Meter, 1 EA, 0 Refill(s) Blood [...] disorder of cervical region / SNOMED CT 4024273803 / Confirmed Chest pain in adult / SNOMED CT 36008727 / Confirmed Diabetes / SNOMED CT 927464853 / Confirmed Generalized anxiety disorder / SNOMED CT 45003873 / Confirmed GERD (gastroesophageal reflux disease) / SNOMED CT [id number] / Confirmed Gout / SNOMED CT [id number] / Confirmed History of colon polyps / SNOMED CT 7185390569 / Confirmed HTN (hypertension) / SNOMED CT [id number] / Confirmed Penile lump / SNOMED CT 828636146 / Confirmed Mixed hyperlipidemia / SNOMED CT 964672141 / Confirmed Palpitations / SNOMED CT 478411361 / Confirmed Panic / SNOMED CT 790405557 / Confirmed Screening for colorectal cancer / SNOMED CT 892740320 / Confirmed Seizure / SNOMED CT [id number]-[id number] / Confirmed SOB - Shortness of breath / SNOMED CT 737966853 / Confirmed URI with cough and congestion / SNOMED CT 61205209 / Confirmed, Active Problems (16) Chest pain in adult Diabetes Disc disorder of cervical region Generalized anxiety disorder GERD (gastroesophageal reflux disease) Gout History of colon polyps HTN (hypertension) Mixed hyperlipidemia Palpitations Panic Penile lump Screening for colorectal cancer Seizure SOB - Shortness of breath URI with cough and congestion Histories Past Medical History: Active HTN (hypertension) (6050HF6Z-[id number]-YYV885MC4845) GERD (gastroesophageal reflux disease) ([id number]-CF9P-MF661OZ07QQ9) Disc disorder of cervical region (0629875978) Diabetes (332717295) Resolved Gout ([id number]): Resolved., seizure disorder, NIDDM Family History: Cancer Mother (Raeann Alexandra) Comments: 03/28/2019 11:41 KELLIE Stinson Mantle Cell non-hodgkins lymphoma Anxiety Mother (Raeann Alexandra) Sister (Maryse Porras) Hypothyroidism Mother (Raeann Alexandra) Heart attack Father (Helena Alexandra) Bipolar Mother (Raeann Alexandra) Diabetes Father (Helena Alexandra) Procedure history: Colonoscopy (412086107) in the month of 09/2019 at 49 Years. Cyst - pilonidal (569002916) in 1992 at 23 Years. Tonsillectomy and adenoidectomy (722732909). Social History Social & Psychosocial Habits Alcohol [...] 14:40 - KELLIE Lantigua Home/Environment 03/28/2019 Primary Property Preservation Specialist: self Nutrition/Health 07/27/2022 Caffeine intake amount: tea/soda- [...] Admission Weight 88.6 kg Weight Method Stated [place] Body Weight 70.92 kg BSA Admission 2.05 [...] Surgeon SN - CAt - Role Performed SUPERVISOR INSTRUMENT MECHANICS SN - CAt - Role Performed Greenhouse Manager 1 SN - CAt - Role Performed Truck Headlight Assembler 11/17/2022 7:12 EDT [facility] History and Physical 11/17/2022 6:59 EDT IV [...] Person #1 We May Share ILA Zamorano [phone] Designated Person #1 Relationship Spouse Height 175.5 cm Admission Weight 88.6 kg Weight Method Stated [place] Body Weight 70.92 kg BSA Admission 2.05 [...] Status N/A Skin Temperature Warm Skin Description [place] Skin Integrity Intact Neurological Symptoms Patient denies [...] Method Explanation, Printed materials Preferred Written Language Hong Konger Preferred Spoken Language Hong [place]er Information Given by Patient Patient's Current Physicians [...] Note-Nursing Procedure/Therapy Intake . Assessment and Plan [place] [employer] Anesthesiologists (ASA) physical status classification: Class III. Anesthetic Preoperative Plan Premedication: intravenous. Anesthetic technique: MAC. Induction: intravenously. Postoperative pain management: Per surgeon. Risks discussed: nausea, vomiting, headache, sore throat, dental injury, hypotension, allergic reaction, serious complications. Informed consent: signed by patient. Digitally Signed by MARVA CARPIO on 11/17/2022 07:18 AM [facility]03-15-2023 Note [place] ADMISSION HISTORY AND PHYSICIAL CHIEF COMPLAINT: Personal history of colon polyps HISTORY OF PRESENT ILLNESS: History of colon polyps with colonoscopy removed 3 years ago, no family history of colon cancer REVIEW OF SYSTEMS: Constitutional: denies weight loss Cardiovascular:denies chest pain, palpitations Respiratory:denies shortness of breath Gastrointestinal:no abd pain Musculoskeletal: no arthralgias Skin: no rashes . ACTIVE PROBLEMS: (16) Chest pain in adult (23267196) Diabetes (376470740) Disc disorder of cervical region (5374263744) Generalized anxiety disorder (60836355) GERD (gastroesophageal reflux disease) ([id number]-XT115TY68OE3) Gout ([id number]) History of colon polyps (1612483951) HTN (hypertension) (7009YT0T-4945-2691-2123-QKH556GR6452) Mixed hyperlipidemia (813028754) Palpitations (727527523) Panic (987177804) Penile lump (951857870) Screening for colorectal cancer (313125866) Seizure ([id number]) SOB - Shortness of breath (810165677) URI with cough and congestion (17321633) MEDICATIONS: Active Inpt Meds: None Active PRN Meds: None One Time Meds: None Active IV Meds: Lactated Ringers Infusion 1,000 mL Start: 11/17/22 6:44:00 EDT, Rate: 20 mL/hr, 11/17/22 6:44:00 EDT ALLERGIES: (1) NKA FAMILY HISTORY: SOCIAL HISTORY: PHYSICAL EXAM: VITALS: BhzkehKslhIUIepldQXVxS7CDP0HkntOy(kg) 11/17 06:4736.4--1886070--94/15 88.6 24 Hr Tmax: 36.4 at 11/17 [...] LABS: 36hr Labs 11/17 0647 Blood Glucose, Phnsmcqkq489 Blood Glucose, Qvudfsyih376 DIAGNOSTICS: IMPRESSION: History of colon polyps PLAN: Colonoscopy and possible polypectomy was discussed in the office. Risk, benefits, prep and sedationwere discussed Digitally Signed by ODALYS JAMES DO on 11/17/2022 07:13 AM [facility] Future App[facility]ments Appointment Date:07/23/2021 04:00:00 PM Scheduled Provider:JACK LOPEZ MD Location:[facility] Appointment Type:PC OV [facility] Evaluation + Plan note Future Appointments Appointment Date:07/27/2022 04:30:00 PM Scheduled Provider:DEREK CASTANEDA DO Location:[facility] Appointment Type: OV [facility] Evaluation + Plan note Future Appointments Appointment Date:01/26/2023 04:30:00 PM Scheduled Provider:DEREK CASTANEDA DO Location:[facility] Appointment Type: OV [facility] Hospital course Narrative No data available for this section [facility] Hospital Discharge instructions No data available for this section [facility] Progress note No data available for this section [facility] Summary Purpose Family History No Family History Records FoundNo Family History Records Found Advance Directives No Advanced Directives Records FoundNo Advanced Directives Records Found Additional Source Comments (unrecognized sect ion and content) No Status Records FoundNo Status Records Found INFORMATION SOURCE (unrecogn ized section and content) DATE CREATED AUTHOR AUTHOR'S ORGANIZ ATION 03/04/2023 [facility] ([place] Care Team (unrecognized sect ion and content) Care Team Personnel Name: JACK LOPEZ MD Position: P4 Physician - Primary Care Member Role: Primary Care Physician Address: Address: [address], [place] [address] Care Team Related Persons Name: HELENA ALEXANDRA Address: [address] [place] [address] [place] Name: WARREN ALEXANDRA Name: RAEANN ALEXANDRA Care Team Personnel Name: LYNSEY WEINSTEIN MD Position: [facility] Physician Member Role: Neurologist Address: Address: [address] [place] [address] Name: RUFUS GUTIÉRREZCOLD WORKING INSPECTOR Position: P4 Advanced Creel Cleaner Member Role: Dredge Engineer Address: Address: [address] [place] [address] Name: DEREK CASTANEDA DO Position: P4 Physician - Primary Care Member Role: Primary Care Physician Address: Address: [address] [place] [address] Care Team Related Persons Name: HELENA ALEXANDRA Address: [place] [address] [place] Name: WARREN ALEXANDRA Name: RAEANN ALEXANDRA Patient Care team informatio n (unrecognized section and content) Care Team Personnel Name: LYNSEY WEINSTEIN MD Position: [facility] Physician Member Role: Neurologist Address: Address: [address] [place] [address] Name: RUFUS GUTIÉRREZ Position: P4 Advanced Creel Cleaner Member Role: Dredge Engineer Address: Address: [address] [place] [address] Name: DEREK CASTANEDA DO Position: P4 Physician - Primary Care Member Role: Primary Care Physician Address: Address: [address] [place] [address] Care Team Related Persons Name: HELENA ALEXANDRA Address: [place] [address] [place] Name: WARREN ALEXANDRA Name: WARREN ALEXANDRA Address: [address] [phone] Name: RAEANN ALEXANDRA FOR RECORDS PERTAINING TO [...] BE BASED ON THE PRIMARY CLINICAL RECORDS. [facility] provides no warranty or guarantee of the accuracy or completeness of information in this document.
--- OUTSIDE RECORDS SUMMARY | 2023-08-31 20:24 | XMS RPT_ITS | CCD ---
Author Name Unknown Address [address] [place] [address] Organization [facility] Care Team Providers Care Educational Technology Coordinator Name Role Phone JOHN MUIR, JACK Daly Primary Care Physician [phone] DEREK CASTANEDA DO Primary Care Physician [phone] DEREK CASTANEDA DO Attending Unavailable DEREK CASTANEDA [...] qDay, # 90 tab(s), 3 Refill(s), Pharmacy: [facility]/pharmacy #[id number], Gout, 175.5, cm, 10/27/22 16:05:00 [...] Blood Pressure Non-Invasive 93 1 ODALYS JAMES [facility] 11-17-2022 08:08-0400 Heart rate 87 /min ODALYS JAMES [facility] 11-17-2022 08:08-0400 Respiratory rate 20 /min ODALYS JAMES DO [facility] 11-17-2022 08:08-0400 Systolic Blood Pressure Non-Invasive 136 1 ODALYS JAEMS [employer] 11-17-2022 08:03-0400 Diastolic Blood Pressure Non-Invasive 93 1 ODALYSVelasquez JAMES [facility] 11-17-2022 08:03-0400 Heart rate 81 /min ODALYS JACOB DO [facility] 11-17-2022 08:03-0400 Respiratory rate 19 /min ODALYS JACOB DO [facility] 11-17-2022 08:03-0400 Systolic Blood Pressure Non-Invasive 125 1 ODALYS JACOB DO [facility] 11-17-2022 07:58-0400 Diastolic Blood Pressure Non-Invasive 86 1 ODALYS JACOB DO [facility] 11-17-2022 07:58-0400 Heart rate 87 /min ODALYS JACOB DO [facility] 11-17-2022 07:58-0400 Respiratory rate 20 /min ODALYS JACOB DO [facility] 11-17-2022 07:58-0400 Systolic Blood Pressure Non-Invasive 124 1 ODALYS JACOB DO [facility] 11-17-2022 07:35-0400 Respiratory Rate - Anes 15 br/min ODALYS JACOB DO [facility] 11-17-2022 07:30-0400 Respiratory Rate - Anes 19 br/min ODALYS JACOB DO [facility] 11-17-2022 07:28-0400 Body temperature 32 [degF] ODALYS JACOB DO [facility] 11-17-2022 07:25-0400 Respiratory Rate - Anes 10 br/min ODALYS JACOB DO [facility] 11-17-2022 06:47-0400 Blood Pressure Cuff Size ODALYS JACOB DO [facility] 11-17-2022 06:47-0400 Blood Pressure Location ODALYS JAMES DO [facility] 11-17-2022 06:47-0400 Blood Pressure Method ODALYS JAMES DO [facility] 11-17-2022 06:47-0400 Body height 175.5 cm ODALYS JAMES DO [facility] 11-17-2022 06:47-0400 Body temperature 97.52 [degF] ODALYS JAMES DO [facility] 11-17-2022 06:47-0400 Body weight 88.6 kg ODALYS JAMES DO [facility] 11-17-2022 06:47-0400 Body weight 28.77 kg/m2 ODALYS JAMES DO [facility] 11-17-2022 06:47-0400 Heart rate 101 /min ODALYS JAMES DO [facility] Encounters Encounter Date Encounter Type Care Provider Facility Start: 01-26-2023 End: 01-27-2023 ambulatory STUART MCHUGH COMMERCIAL SERVICE TECHNICIAN-PEDIATRIC PHYSIATRIST Facility:A Start: 11-17-2022 End: 11-17-2022 ambulatory ODALYS JAMES DO Facility:B Start: 11-17-2022 End: 11-17-2022 Minor Procedure ODALYSVelasquez JAMES DO [facility] Start: 10-27-2022 End: 11-01-2022 ambulatory DEREK CASTANEDA DO Facility:B Start: 10-27-2022 End: 10-31-2022 Outreach Lab DEREK CASTANEDA DO [facility] Start: 07-20-2022 End: 07-21-2022 ambulatory JACK LOPEZ MD Facility:B Start: 07-20-2022 End: 07-20-2022 Patient encounter procedure JACK LOPEZ MD [facility] Start: 07-16-2021 End: 07-16-2021 Patient encounter procedure JACK LOPEZ MD [facility] Procedures Date Procedure Procedure Detail Performing Clinician Start: 11-17-2022 Colonoscopy ODALYS JAMES DO Start: 09-05-2019 Colonoscopy JACK BECKER MD Start: 09-05-1992 Cyst - pilonidal (disorder) JACK LOPEZ MD Tonsillectomy and adenoidectomy JACK LOPEZ MD Immunizations Immunization Date Immunization Notes Care Provider [facility] 08-20-2021 SARS-CoV-2 (COVID-19 ) mRNA-1273 vaccine JACK LOPEZ MD [facility] 12-18-2020 SARS-CoV-2 (COVID-19 ) mRNA-1273 vaccine JACK LOPEZ MD [facility] Payers Date Payer Category Payer Unknown [id number] 2022 Unknown [id number] 2019 Unknown [id number] 1970 Unknown [id number] 2.16.8 [id number] 1970 Unknown [id number] 2.16.8 [id number] 1971 Unknown [id number] 2.16.8 [id number] 1970 Unknown [id number] 2.16.8 [id number] Social History Date Type Detail Facility Start: 07-21-2020 Never smoked tobacco (f inding) [facility] Medical Equipment Procedure Code Equipment [...] rx, # 200 EA, 3 Refill(s), Pharmacy: [facility]/pharmacy #[id number], Diabetes, 176.4, cm, 01/27/22 16:35:00 EDT, Height, 93, kg, 01/27/22 16:35:00 EDT, Dosing Weight Start: 03-02-2022 See Instructions , FreeStyle Lancets 28G #100 use as directed. Dx Diabetes tests bid, # 200 EA, 3 Refill(s), Pharmacy: [facility]/pharmacy #[id number], Diabetes, 177.8, cm, 09/28/21 15:22:00 [...] supply, # 30 EA, 0 Refill(s), [id number], Controlled diabetes mellitus type II without complication, 177, cm, 01/22/21 15:35:00 EDT, Height, 97.6, kg, 01/22/21 15:35:00 EDT, Dosing Weight Start: 01-23-2021 See Instructions , Free Style test strips Patient tests 2-3 times daily. Dispense 90 day rx, # 200 EA, 3 Refill(s), Pharmacy: [facility]/pharmacy #[id number], Diabetes, 176.4, cm, 01/27/22 16:35:00 EDT, Height, 93, kg, 01/27/22 16:35:00 EDT, Dosing Weight Start: 03-02-2022 See Instructions , FreeStyle Lancets 28G #100 use as directed. Dx Diabetes tests bid, # 200 EA, 3 Refill(s), Pharmacy: [facility]/pharmacy #[id number], Diabetes, 177.8, cm, 09/28/21 15:22:00 EST, Height, 95, kg, 09/28/21 15:22:00 EST, Dosing Weight Start: 12-30-2021 FREESTYLE 28G LANCETS, See Instructions, USE DIRECTED, # 100 unknown unit, 3 Refill(s), 177.8, cm, 10/16/19 15:10:00 EST, Height, 94.5, kg, 10/16/19 15:10:00 EST, Dosing Weight Start: 01-18-2020 See Instructions , # 100 strip, Refill #: 12 Total Refills: 12, TEST TWICE A DAY, [facility]/pharmacy #[id number] Start: 03-15-2019 FREESTYLE LITE T EST STRIP, See Instructions, TEST TWICE A DAY, # 50 strip, 25 Refill(s), 177, cm, 02/04/20 15:43:00 EDT, Height, 93.2, kg, 02/04/20 15:43:00 EDT, Dosing Weight Start: 04-11-2020 See Instructions , qs 1 month supply, # 30 EA, 0 Refill(s), [id number], Controlled diabetes mellitus type II without complication, 177, cm, 01/22/21 15:35:00 EDT, Height, 97.6, kg, 01/22/21 15:35:00 EDT, Dosing Weight Start: 01-23-2021 See Instructions , Free Style test strips Patient tests 2-3 times daily. Dispense 90 day rx, # 200 EA, 3 Refill(s), [id number], Diabetes, 176.4, cm, 01/27/22 16:35:00 EDT, Height, 93, kg, 01/27/22 16:35:00 EDT, Dosing Weight Start: 03-02-2022 See Instructions , FreeStyle Lancets 28G #100 use as directed. Dx Diabetes tests bid, # 200 EA, 3 Refill(s), [id number], Diabetes, 177.8, cm, 09/28/21 15:22:00 EST, Height, 95, kg, 09/28/21 15:22:00 EST, Dosing Weight Start: 12-30-2021 FREESTYLE 28G LANCETS, See Instructions, USE DIRECTED, # 100 unknown unit, 3 Refill(s), 177.8, cm, 10/16/19 15:10:00 EST, Height, 94.5, kg, 10/16/19 15:10:00 EST, Dosing Weight Start: 01-18-2020 See Instructions , # 100 strip, Refill #: 12 Total Refills: 12, TEST TWICE A DAY, [facility]/pharmacy #[id number] Start: 03-15-2019 FREESTYLE LITE T EST STRIP, See Instructions, TEST TWICE A DAY, # 50 strip, 25 Refill(s), 177, cm, 02/04/20 15:43:00 EDT, Height, 93.2, kg, 02/04/20 15:43:00 EDT, Dosing Weight Start: 04-11-2020 See Instructions , qs 1 month supply, # 30 EA, 0 Refill(s), Pharmacy: [facility]/pharmacy #[id number], Controlled diabetes mellitus type II without complication, 177, cm, 01/22/21 15:35:00 EDT, Height, 97.6, kg, 01/22/21 15:35:00 EDT, Dosing Weight Start: 01-23-2021 Functional Status Date Assessment Result Facility 11-17-2022 Functional Status Activity Status ADL Cathryn ke [facility] 11-17-2022 Functional Status Maintained [facility] Mental Status Date Assessment Result Facility 11-17-2022 Mental Status Orientation Oriented x 4 [facility] 11-17-2022 Mental Status [facility] Clinical Notes 11-17-2022 Note Date & Type Note Facility HERRICK ADMISSION HISTORY AN D PHYSICIAL CHIEF COMPLAINT: [...] ACTIVE PROBLEMS: (16) Chest pain in adult (08818854) Diabetes (543541307) Disc disorder of cervical region (9269789028) Generalized anxiety disorder (64575991) GERD (gastroesophageal reflux disease) ([id number]) Gout ([id number]) History of colon polyps (4681076171) HTN (hypertension) (7409LA1L-[id number]) Mixed hyperlipidemia (921527803) Palpitations (017434481) Panic (878210850) Penile lump (248018097) Screening for colorectal cancer (659091160) Seizure ([id number]) SOB - Shortness of breath (612927770) URI with cough and congestion (95383779) MEDICATIONS: Active Inpt Meds: None Active PRN Meds: None One Time Meds: None Active IV Meds: Lactated Ringers Infusion 1,000 mL Start: 11/17/22 6:44:00 EDT, Rate: 20 mL/hr, 11/17/22 6:44:00 EDT ALLERGIES: (1) NKA FAMILY HISTORY: SOCIAL HISTORY: PHYSICAL EXAM: VITALS: OqryphDcnvIMUotdkDAHrS0GAM8XvxnEr(kg) 11/17 06:4736.4--3325613--28/15 88.6 24 Hr Tmax: 36.4 at 11/17 [...] LABS: 36hr Labs 11/17 0647 Blood Glucose, [id number] Blood Glucose, Trhqwoouu306 DIAGNOSTICS: IMPRESSION: History of colon polyps PLAN: Colonoscopy and possible polypectomy was discussed in the office. Risk, benefits, prep and sedation were discussed Future Appointments Appointment Date:01/26/2023 04:30:00 PM Scheduled Provider:DEREK CASTANEDA DO Location:[facility] Appointment Type:[facility] 03-15-2023 Hospital Discharge instructions Patient Education 11/17/2022 [...] before eating solid foods. General instructions Take asgy-zwg-stblosl and prescription medicines only as told by [...] 12/12/2016 Document Revised: 11/20/2018 Document Reviewed: 12/12/2016 [employer] Patient Education 2020 [employer] 11/17/2022 07:42:13 Colon Polyps Colon Polyps [...] 05/18/2005 Document Revised: 12/07/2018 Document Reviewed: 12/07/2018 [employer] Patient Education 2020 [employer]. 11/17/2022 07:42:03 Colonoscopy, Adult, Care After Colonoscopy, [...] a slower pace than normal. ?Eat soft, wfsb-lz-uiibel foods. Take oguv-egf-iybvgcy or prescription medicines only as told by [...] 04/05/2005 Document Revised: 06/14/2018 Document Reviewed: 11/02/2016 [employer] Patient Education 2020 [employer]. Follow Up Care 09/09/2022 07:43:09 With:DEREK CASTANEDA DO Address: [address] [place] [phone] When: Unknown [facility] 03-15-2023 Anesthesiology Consult note Patient: TAMANNA ALEXANDRA Age: 52 years Sex: Male : 1970 Associated Diagnoses: None Author: MARVA CARPIO APRN-SUPERVISOR OF OFFICIALS Assessment Postanesthesia assessment Vitals: Reviewed Results: Vital signs from flowsheet : Vital Signs(Date Range: 11/16/2022 0:00 EDT -11/17/2022 7:46 EDT) . Mental status: at preoperative baseline. Respiratory function: lungs are clear to auscultation. Respiratory support: none. CV function: Normal rate. Cardiovascular support: none. Pain. Nausea status: denies nausea. Postoperative hydration status: within normal limits. Digitally Signed by MARVA CARPIO on 11/17/2022 07:46 AM [facility]03-15-2023 Summary of episode note Discharge Instructions Thank you for allowing [facility] to assist you with your healthcare needs. [...] MATTHIAS 01/26/2023 04:30 PM EDT DEREK CASTANEDA [address] [address] Follow Up Appointments Follow Up with DEREK CASTANEDA DO When Where: [address] [place] [phone] The Following Activity and Diet Have Been [...] (Blood Glucose Test Machine) See instructions Freestyle Ramona Lite Meter Unchanged DME (Blood Glucose Test [...] before eating solid foods. General instructions Take umkw-nut-zlxlcfk and prescription medicines only as told by [...] 12/12/2016 Document Revised: 11/20/2018 Document Reviewed: 12/12/2016 [employer] Patient Education 2020 [employer] Colon Polyps Polyps are tissue growths [...] 05/18/2005 Document Revised: 12/07/2018 Document Reviewed: 12/07/2018 [employer] Patient Education 2020 [employer] Colonoscopy, Adult, Care After This sheet [...] slower pace than normal. ? Eat soft, vora-ok-aslxcd foods. Take wlqq-gtn-jtxzmzx or prescription medicines only as told by [...] 04/05/2005 Document Revised: 06/14/2018 Document Reviewed: 11/02/2016 [employer] Patient Education 2020 [employer] Additional Information VACCINATE! IT SAVES LIVES! Members of the community who have not yet received the COVID-19 vaccine and would like to receive it can visit one of [facility] vaccine clinics. There are many vaccine clinic locations within the [facility]. For locations and available times, please visit [email or web address] It is important to note that some COVID mobile vaccine clinics are held outdoors and may be canceled in rainy or stormy conditions. To learn more about pediatric vaccinations (ages 5-11), we invite you to visit the [facility] webpage. https://www.[email or web address].org/pages/4660-Jbccc-Kubbunthvss-Kwxggwoxjb-Tnjse-Qeh stions.htmlTo learn more about the COVID-19 vaccine, we invite you to visit the CDC website for a list of frequently asked questions. https://www.cdc.gov/coronavirus/2019-ncov/vaccines/faq.html [facility] Patient Portal Access Instructions: Stay connected with your healthcare team and access your personal medical information anytime with the [facility] Patient Portal.If you would like a full copy of your medical records, please contact the [facility] Medical Records Department, Tuesday through Tuesday between 8a.m. and 4:30p.m. Please follow the directions below to access the portal: 1.Access the email account you provided upon registration to the [facility].2.Look for an invitation email from [facility].3.Open the email and access the invitation link: Accept Invitation to [facility]4.Fill in the required salter to create your account. Sign into [email or web address] with your username and password that you [...] you will allow to register on the [facility] Patient Portal for access to your information. You can also access the [facility] Patient Portal on the [employer]. Simply click on Health Records under [employer] and then click on the [employer] logo. HOW TO SAFELY DISPOSE OF PRESCRIPTION [...] Call your local pharmacy or go to http://bit.ConnectYard/9Z1Uu1n to find one close to you.3.Make use of household items: Use cat litter or old coffee grounds to dispose medications if other options arenot available. Mix your drugs with these household products, seal them in an airtight container andthrow it into the garbage. Call [facility]: [phone] to be sure your drugs can be [...] aware that I should contact my doctor. Patient/Career Manager Signature: Date/Time: Relationship to Patient: Witness Name/Signature: Date/Time: [facility]03-15-2023 Anesthesiology Consult note Patient: TAMANNA [...] Blood Glucose Test Machine: See Instructions, Freestyle Ramona Lite Meter, 1 EA, 0 Refill(s) Blood [...] disorder of cervical region / SNOMED CT 7938102404 / Confirmed Chest pain in adult / SNOMED CT 07977300 / Confirmed Diabetes / SNOMED CT 391347788 / Confirmed Generalized anxiety disorder / SNOMED CT 46154511 / Confirmed GERD (gastroesophageal reflux disease) / SNOMED CT [id number] / Confirmed Gout / SNOMED CT [id number] / Confirmed History of colon polyps / SNOMED CT 3248572451 / Confirmed HTN (hypertension) / SNOMED CT 4344EW7F-[id number] / Confirmed Penile lump / SNOMED CT 178688921 / Confirmed Mixed hyperlipidemia / SNOMED CT 905485330 / Confirmed Palpitations / SNOMED CT 832990550 / Confirmed Panic / SNOMED CT 898409095 / Confirmed Screening for colorectal cancer / SNOMED CT 045446634 / Confirmed Seizure / SNOMED CT [id number]-[id number] / Confirmed SOB - Shortness of breath / SNOMED CT 493380209 / Confirmed URI with cough and congestion / SNOMED CT 23670011 / Confirmed, Active Problems (16) Chest pain in adult Diabetes Disc disorder of cervical region Generalized anxiety disorder GERD (gastroesophageal reflux disease) Gout History of colon polyps HTN (hypertension) Mixed hyperlipidemia Palpitations Panic Penile lump Screening for colorectal cancer Seizure SOB - Shortness of breath URI with cough and congestion Histories Past Medical History: Active HTN (hypertension) (9300SS6X-8797-1151-7488-IOB660OO9257) GERD (gastroesophageal reflux disease) ([id number]-AE004XJ67RS5) Disc disorder of cervical region (2525583957) Diabetes (195858192) Resolved Gout ([id number]): Resolved., seizure disorder, NIDDM Family History: Cancer Mother (Raeann Alexandra) Comments: 03/28/2019 11:41 KELLIE Stinson Mantle Cell non-hodgkins lymphoma Anxiety Mother (Raeann Alexandra) Sister (Maryse Porras) Hypothyroidism Mother (Raeann Alexandra) Heart attack Father (Helena Alexandra) Bipolar Mother (Raeann Alexandra) Diabetes Father (Helena Alexandra) Procedure history: Colonoscopy (965583164) in the month of 09/2019 at 49 Years. Cyst - pilonidal (076511796) in 1992 at 23 Years. Tonsillectomy and adenoidectomy (732104084). Social History Social & Psychosocial Habits Alcohol [...] 14:40 - KELLIE Lantigua Home/Environment 03/28/2019 Primary Agents' Records Clerk: self Nutrition/Health 07/27/2022 Caffeine intake amount: [...] Admission Weight 88.6 kg Weight Method Stated [place] Body Weight 70.92 kg BSA Admission 2.05 [...] SN - CAt - Role Performed SUPERVISOR OF OFFICIALS SN - CAt - Role Performed Fur Buyer 1 SN - CAt - Role Performed Driver/Sales Workers 11/17/2022 7:12 EDT [place] History and Physical 11/17/2022 6:59 EDT IV [...] Person #1 We May Share ILA Zamorano [phone] Designated Person #1 Relationship Spouse Height 175.5 cm Admission Weight 88.6 kg Weight Method Stated [place] Body Weight 70.92 kg BSA Admission 2.05 [...] Status N/A Skin Temperature Warm Skin Description [place] Skin Integrity Intact Neurological Symptoms Patient denies [...] Method Explanation, Printed materials Preferred Written Language Nepalese Preferred Spoken Language Nepalese Information Given by Patient Patient's Current Physicians [...] Note-Nursing Procedure/Therapy Intake . Assessment and Plan [place] [employer] Anesthesiologists (ASA) physical status classification: Class III. Anesthetic Preoperative Plan Premedication: intravenous. Anesthetic technique: MAC. Induction: intravenously. Postoperative pain management: Per surgeon. Risks discussed: nausea, vomiting, headache, sore throat, dental injury, hypotension, allergic reaction, serious complications. Informed consent: signed by patient. Digitally Signed by MARVA CARPIO on 11/17/2022 07:18 AM [facility]03-15-2023 Note HERRICK ADMISSION HISTORY AND PHYSICIAL CHIEF COMPLAINT: Personal history of colon polyps HISTORY OF PRESENT ILLNESS: History of colon polyps with colonoscopy removed 3 years ago, no family history of colon cancer REVIEW OF SYSTEMS: Constitutional: denies weight loss Cardiovascular:denies chest pain, palpitations Respiratory:denies shortness of breath Gastrointestinal:no abd pain Musculoskeletal: no arthralgias Skin: no rashes . ACTIVE PROBLEMS: (16) Chest pain in adult (14730854) Diabetes (847076862) Disc disorder of cervical region (4771518167) Generalized anxiety disorder (08045667) GERD (gastroesophageal reflux disease) ([id number]-LI5P-CV963SC87NC9) Gout ([id number]) History of colon polyps (4928457197) HTN (hypertension) (7847JY3E-0906-7747-2386-MSP146MH8308) Mixed hyperlipidemia (212522859) Palpitations (404478026) Panic (294497460) Penile lump (192875085) Screening for colorectal cancer (581157517) Seizure ([id number]) SOB - Shortness of breath (974919271) URI with cough and congestion (47187859) MEDICATIONS: Active Inpt Meds: None Active PRN Meds: None One Time Meds: None Active IV Meds: Lactated Ringers Infusion 1,000 mL Start: 11/17/22 6:44:00 EDT, Rate: 20 mL/hr, 11/17/22 6:44:00 EDT ALLERGIES: (1) NKA FAMILY HISTORY: SOCIAL HISTORY: PHYSICAL EXAM: VITALS: ZwqanhXxbwERMlzznBLRyG4TVQ1VtxlYr(kg) 11/17 06:4736.4--6919047--89/15 88.6 24 Hr Tmax: 36.4 at 11/17 [...] LABS: 36hr Labs 11/17 0647 Blood Glucose, [id number] Blood Glucose, Jesjuryne930 DIAGNOSTICS: IMPRESSION: History of colon polyps PLAN: Colonoscopy and possible polypectomy was discussed in the office. Risk, benefits, prep and sedationwere discussed Digitally Signed by ODALYS JAMES DO on 11/17/2022 07:13 AM [facility] Future Appointments Appointment Date:07/23/2021 04:00:00 PM Scheduled Provider:JACK LOPEZ MD Location:[facility] Appointment Type:PC OV [facility] Evaluation + Plan note Future Appointments Appointment Date:07/27/2022 04:30:00 PM Scheduled Provider:DEREK CASTANEDA DO Location:[facility] Appointment Type: OV [facility] Evaluation + Plan note Future Appointments Appointment Date:01/26/2023 04:30:00 PM Scheduled Provider:DEREK CASTANEDA DO Location:[facility] Appointment Type: OV [facility] Hospital course Narrative No data available for this section [facility] Hospital Discharge instructions No data available for this section [facility] Progress note No data available for this section [facility] Summary Purpose Family History No Family History Records FoundNo Family History Records Found Advance Directives No Advanced Directives Records FoundNo Advanced Directives Records Found Additional Source Comments (unrecognized sect ion and content) No Status Records FoundNo Status Records Found INFORMATION SOURCE (unrecogn ized section and content) DATE CREATED AUTHOR AUTHOR'S ORGANIZ ATION 03/04/2023 [facility] ([place] Care Team (unrecognized sect ion and content) Care Team Personnel Name: JACK LOPEZ MD Position: P4 Physician - Primary Care Member Role: Primary Care Physician Address: Address: [address], [place] [address] Care Team Related Persons Name: HELENA ALEXANDRA Address: [address] [place] [address] [place] Name: WARREN ALEXANDRA Name: RAEANN ALEXANDRA Care Team Personnel Name: LYNSEY WEINSTEIN MD Position: [facility] Physician Member Role: Neurologist Address: Address: [address] [place] [address] Name: RUFUS GUTIÉRREZPEDIATRIC PHYSIATRIST Position: P4 Advanced Tax Accounting Manager Member Role: Tool Room Gear Machine Operator Address: Address: [address] [place] [address] Name: DEREK CASTANEDA DO Position: P4 Physician - Primary Care Member Role: Primary Care Physician Address: Address: [address] [place] [address] Care Team Related Persons Name: HELENA ALEXANDRA Address: [place] [address] [place] Name: WARREN ALEXANDRA Name: RAEANN ALEXANDRA Patient Care team informatio n (unrecognized section and content) Care Team Personnel Name: LYNSEY WEINSTEIN MD Position: [facility] Physician Member Role: Neurologist Address: Address: [address] [place] [address] Name: RUFUS GUTIÉRREZ Position: P4 Advanced Tax Accounting Manager Member Role: Tool Room Gear Machine Operator Address: Address: [address] [place] [address] Name: DEREK CASTANEDA DO Position: P4 Physician - Primary Care Member Role: Primary Care Physician Address: Address: [address] [place] [address] Care Team Related Persons Name: HELENA ALEXANDRA Address: [place] [address] [place] Name: WARREN ALEXANDRA Name: WARREN ALEXANDRA Address: [address] [id number] Name: RAEANN ALEXANDRA FOR RECORDS PERTAINING TO [...] BE BASED ON THE PRIMARY CLINICAL RECORDS. [facility]. provides no warranty or guarantee of the accuracy or completeness of information in this document.
[2023-08-31 23:06] LABS: Bedside Glucose 117 mg/dL (74-106)
[2023-08-31] MEDS: oxyCODONE 5 MG Tablet PO (23:20)
[2023-09-01] VITALS (10 sets, daily range): BP systolic 136–156; BP diastolic 88–100; PULSE 98–117; RESP 18–22; TEMP 36.6–37.6; O2SAT 87–96
[2023-09-01 05:40] LABS: Absolute Lymphocyte Count 1.12 X10^3/uL (0.83-4.51); Absolute Neutrophil Count 9.3 X10^3/uL (2.0-7.7); Basophil# 0.03 X10^3/uL; Basophil% 0.3 % (0-1); Eosinophil# 0.02 X10^3/uL; Eosinophils% 0.2 % (0-5); Hematocrit 46.1 % (40-54); Hemoglobin 14.9 g/dL (13.0-16.5); Lymphocyte # 1.12 X10^3/ul (0.83-4.51); Mean Corp Hgb Conc 32.3 g/dL (32-36); Mean Corpuscular Hgb 30.2 pg (27.0-32.0); Mean Corpuscular Volume 93.3 fL (80-94); Mean Platelet Vol. 10.1 fl (6.2-12.0); Monocyte# 0.75 X10^3/uL; Monocyte% 6.7 % (0-10); NRBC Flagged by Analyzer 0 % (0-5); Neutrophil # 9.26 X10^3/uL (2.7-7.7); Neutrophil % 82.2 % (47-70); Platelet Count 246 K/mm3 (150-450); RBC Distribution Width CV 13.1 % (11.6-14.6); RBC Distribution Width SD 44.6 fl (35.1-43.9); Red Blood Count 4.94 M/mm3 (4.6-6.2); White Blood Count 11.3 K/mm3 (4.4-11.0)
[2023-09-01] MEDS: 0.9% Normal Saline (1000mL) 1,000 ML 120 ML IV (05:59)
[2023-09-01] MEDS: Acetaminophen 325 MG Tablet 650 MG PO (06:00)
[2023-09-01] MEDS: oxyCODONE 5 MG Tablet PO (06:00)
[2023-09-01] MEDS: Piperacil/Tazobactam 3.375 GM in 0.9% Normal Saline (50mL MB+) 50 ML IV (06:02)
[2023-09-01] MEDS: Levothyroxine 25 MCG TABLET PO (06:02)
[2023-09-01 06:15] LABS: Anion Gap 13 (5-15); BUN 14 mg/dL (7-18); BUN/Creat Ratio 13.1 RATIO (10-20); Calcium,Total 8.1 mg/dL (8.5-10.1); Chloride 110 mmol/L (98-107); Creatinine, Serum 1.07 mg/dL (0.70-1.30); EST Glomerular Filtration Rate 77 mL/min (>60); Est Glom Filt Rate - Afr Amer 93 mL/min (>60); Estimated Creatinine Clearance 83.39 ml/min; Glucose 159 mg/dL (74-106); Potassium 4.4 mmol/L (3.5-5.1); Sodium Level 139 mmol/L (136-145)
[2023-09-01] MEDS: guaiFENesin 10 ML UDC (200MG/10ML) PO (06:47)
[2023-09-01 07:13] LABS: Bedside Glucose 174 mg/dL (74-106)
--- NOTE | 2023-09-01 07:15 | PCM.PN.SRG ---
Subjective Subjective Patient has been having bowel function patient states only occasional bleeding. Blood cultures did come back 1 out of 2 positive ID was consulted yesterday. Fever of 100.7 around midnight Objective Data Objective Data Vital Signs: Vital Signs Temp Pulse Resp BP Pulse Ox O2 Del Method O2 Flow Rate 98.1 F 116 H 20 H 156/100 H 96 Nasal Cannula 2 09/01/23 05:54 09/01/23 05:54 09/01/23 05:54 09/01/23 05:54 09/01/23 05:54 09/01/23 06:12 09/01/23 06:12 Oxygen Flow Rate (L/min) 2 Oxygen Delivery Method Nasal Cannula Weight: 207 lb 10.807 oz Body Mass Index (BMI) 29.7 Intake & Output: Intake and Output for Last 24 Hours 08/30/23 08/31/23 09/01/23 23:59 23:59 23:59 Intake Total 2356.5 / 2356.5 4090 / 4090 1450 / 1450 Output Total 1325 / 1325 975 / 975 Balance 1031.5 / 1031.5 3115 / 3115 1450 / 1450 Lab / Micro Data 09/01/23 05:25 09/01/23 05:25 Labs: Laboratory Results - last 24 hr 08/31/23 06:00: WBC 6.7, RBC 4.22 L, Hgb 12.5 L, Hct 39.3 L, MCV 93.1, MCH 29.6, MCHC 31.8 L D, RDW Std Deviation 45.3 H, RDW Coeff of Jeremiah 13.2, Plt Count 204, MPV 10.6, Sodium 137, Potassium 3.8, Chloride 108 H, Carbon Dioxide 19.0 L, Anion Gap 10, BUN 12, Creatinine 1.13, Estim Creat Clear Calc 78.96, Est GFR (MDRD) Af Amer 88, Est GFR (MDRD) Non-Af 72, BUN/Creatinine Ratio 10.6, Glucose 102, Calcium 6.9 L 08/31/23 06:32: POC Glucose 111 H 08/31/23 11:27: POC Glucose 86 08/31/23 17:03: POC Glucose 132 H 08/31/23 21:44: POC Glucose 117 H 09/01/23 05:25: WBC 11.3 H, RBC 4.94, Hgb 14.9, Hct 46.1, MCV 93.3, MCH 30.2, MCHC 32.3, RDW Std Deviation 44.6 H, RDW Coeff of Jeremiah 13.1, Plt Count 246, MPV 10.1, Immature Gran % (Auto) 0.600, Neut % (Auto) 82.2 H, Lymph % (Auto) 10.0 L, [place] % (Auto) 6.7, Eos % (Auto) 0.2, Baso % (Auto) 0.3, Absolute Neuts (auto) 9.3 H, Absolute Lymphs (auto) 1.12, Nucleated RBC % 0, Sodium 139, Potassium 4.4, Chloride 110 H, Carbon Dioxide 16.0 L, Anion Gap 13, BUN 14, Creatinine 1.07, Estim Creat Clear Calc 83.39, Est GFR (MDRD) Af Amer 93, Est GFR (MDRD) Non-Af 77, BUN/Creatinine Ratio 13.1, Glucose 159 H, Calcium 8.1 L 09/01/23 06:08: POC Glucose 174 H Micro: Microbiology 08/30/23 Unknown Wound Abcess - Other Gram Stain - Final 08/30/23 Unknown Wound Abcess - Other Wound Culture - Preliminary GNR lactose supervisor wet room Beta streptococcus 08/30/23 08:25 Blood Culture (Wb) - Anticubital Right Blood Culture - Preliminary 08/30/23 05:31 Nasal Secretion SARS-CoV-2 & FLU Antigen (Rapid) - Final Physical Exam Const oriented x3 and no apparent distress Resp normal respiratory effort Cardio regular rate GI soft to palpation and non-tender Inspection: Negative for abdominal distention Assessment & Plan Assessment/Plan (1) Perirectal abscess: PLAN: Plan Tolerating regular diet. 1 out of 2 blood cultures were positive will await IDs recommendation for antibiotics, fever of 100.7 at midnight Roslyn Olivares M.D. Pager: [phone] [facility] [address] [place] [address], [facility], [address] [place] [address] Office: [phone] Charges/Coding Visit Charges Inpatient E&M: 08332 Subs Hosp L2
[2023-09-01] MEDS: dilTIAZem CD 120 MG Capsule PO (08:40)
[2023-09-01] MEDS: Sertraline 100 MG Tablet PO (08:40)
[2023-09-01] MEDS: Allopurinol 300 MG Tablet PO (08:40)
[2023-09-01] MEDS: Pantoprazole Sodium 40 MG Tablet PO (08:40)
[2023-09-01] MEDS: Atorvastatin Calcium 10 MG Tablet PO (08:40)
[2023-09-01] MEDS: levETIRAcetam 750 MG Tablet PO (08:40)
[2023-09-01] MEDS: Insulin Lispro 100 UNIT/ML INSULN.PEN SC (11:20)
[2023-09-01] MEDS: 0.9% Saline Lock 10 ML Syringe IV (11:20)
--- NOTE | 2023-09-01 11:34 | PN_ITS ---
Subjective Subjective Patient seen and examined today. He felt well and had no complaints. He had an uneventful night. Review of systems otherwise negative. Objective Data Objective Data Vital Signs: Vital Signs Temp Pulse Resp BP Pulse Ox O2 Del Method O2 Flow Rate 98.1 F 98 18 136/88 H 96 Nasal Cannula 2 09/01/23 08:35 09/01/23 08:35 09/01/23 08:35 09/01/23 08:35 09/01/23 09:03 09/01/23 09:03 09/01/23 09:03 Oxygen Flow Rate (L/min) 2 Oxygen Delivery Method Nasal Cannula Weight: 207 lb 10.807 oz Body Mass Index (BMI) 29.7 Intake & Output: Intake and Output for Last 24 Hours 08/30/23 08/31/23 09/01/23 23:59 23:59 23:59 Intake Total 2356.5 / 2356.5 4090 / 4090 1500 / 1500 Output Total 1325 / 1325 975 / 975 Balance 1031.5 / 1031.5 3115 / 3115 1500 / 1500 Lab / Micro Data 09/01/23 05:25 09/01/23 05:25 Labs: Laboratory Results - last 24 hr 08/31/23 11:27: POC Glucose 86 08/31/23 17:03: POC Glucose 132 H 08/31/23 21:44: POC Glucose 117 H 09/01/23 05:25: WBC 11.3 H, RBC 4.94, Hgb 14.9, Hct 46.1, MCV 93.3, MCH 30.2, MCHC 32.3, RDW Std Deviation 44.6 H, RDW Coeff of Jeremiah 13.1, Plt Count 246, MPV 10.1, Immature Gran % (Auto) 0.600, Neut % (Auto) 82.2 H, Lymph % (Auto) 10.0 L, [place] % (Auto) 6.7, Eos % (Auto) 0.2, Baso % (Auto) 0.3, Absolute Neuts (auto) 9.3 H, Absolute Lymphs (auto) 1.12, Nucleated RBC % 0, Sodium 139, Potassium 4.4, Chloride 110 H, Carbon Dioxide 16.0 L, Anion Gap 13, BUN 14, Creatinine 1.07, Estim Creat Clear Calc 83.39, Est GFR (MDRD) Af Amer 93, Est GFR (MDRD) Non-Af 77, BUN/Creatinine Ratio 13.1, Glucose 159 H, Calcium 8.1 L 09/01/23 06:08: POC Glucose 174 H Micro: Microbiology 08/30/23 Unknown Wound Abcess - Other Gram Stain - Final 08/30/23 Unknown Wound Abcess - Other Wound Culture - Preliminary Citrobacter species Streptococcus group F Gram negative kiki 08/30/23 08:25 Blood Culture (Wb) - Anticubital Right Blood Culture - Preliminary 08/30/23 05:31 Nasal Secretion SARS-CoV-2 & FLU Antigen (Rapid) - Final Physical Exam Const alert, oriented x3, no apparent distress and average body habitus General Appearance: cooperative and comfortable HEENT normocephalic, head/scalp atraumatic, hearing grossly normal bilaterally, nasal mucous membranes and turbinates normal, moist oral mucous membranes and oropharynx normal Eyes PERRL, EOMs intact bilaterally and conjunctivae normal Neck full ROM, no lymphadenopathy and supple Lymph Lymphatic: no lymphadenopathy noted and no lymphedema noted Chest inspection of chest normal Resp normal respiratory effort, normal air movement, no use of accessory muscles and clear to auscultation bilaterally Cardio regular rate, regular rhythm, S1 normal heart sound, S2 normal heart sound, no murmurs and peripheral pulses 2+ throughout GI normal to inspection, nondistended, normoactive bowel sounds, soft to palpation, non-tender and non-distended Back/Spine normal ROM Extremity normal to inspection, full ROM, normal capillary refill, no clubbing, cyanosis or edema, no calf tenderness and no pedal edema General Extremity: no tenderness to palpation of joints or extremities Skin no rashes or lesions noted Neuro CN's II-XII intact bilaterally, no focal motor deficits and no sensory deficits noted Speech: speech normal Motor Exam: strength 5/5 throughout and general weakness Psych mental status grossly normal, thought process normal and cooperative Assessment & Plan Assessment/Plan (1) Perirectal abscess: (2) Sinus tachycardia: PLAN: Plan #sinus tachycardia * has a known history of sinus tachycardia * on cardizem * HR in the low 100s and imprioving * will monitor * #Perirectal abscess * s/p I&D. On iV zosyn * blood cultures growing gram positive cocci. * wound culture growing Citobacere, Stre gr F and gram negative rods,as well as Beta Streptococcus * ID on board; recommended continuing IV zosyn * await final antibiotic recs from ID * #Bacteremia: as above #Type 2 diabetes mellitus: ISS. Accuchecks ACHS #Hyperlipidemia: on statin #Depression: on sertraline #Hypothyroidism;on synthroid #seizure disordr: on keppra #GOut: on allopurinol DVT prophylaxis: as per primary team, currently low risk, so ambulation encouraged. Charges/Coding Visit Charges Inpatient E&M: 28577 Subs Hosp L2
[2023-09-01 12:01] LABS: Bedside Glucose 190 mg/dL (74-106)
--- NOTE | 2023-09-01 12:27 | DCINST_ITS ---
Discharge Instructions Diet Discharge Diet: Light diet - advance as tolerated Activity Discharge Activity: - (No straining with bowel movements) Dressing / Incision Call your doctor if your incision/area has: Sudden Increased Bleeding and Increased Pain/ Swelling Follow Up Care Please Follow Up With: Roslyn Olivares MD When: Call the office for a follow-up appointment in 1 to 2 weeks. Test Results: Test results from this visit will be discussed in further detail at your follow- up appointment, if applicable. Discharge Plan Admission Admit Date/Time: 08/30/23 16:05 Attending Provider: Roslyn Olivares Primary Care Provider: Lori Segundo Consulting Providers: Roslyn Olivares; Monica Farley; Jasmeet Nickerson Discharge Orders/Prescriptions Prescriptions: New levofloxacin 500 mg tablet 500 mg PO DAILY Qty: 4 0RF metronidazole 500 mg tablet 500 mg PO TID Qty: 12 0RF No Action metformin 500 MG tablet 2 tab PO BID levetiracetam 500 MG tablet 750 mg PO BID sertraline 100 MG tablet 100 mg PO DAILY levothyroxine 25 MCG tablet 25 mcg PO DAILY diltiazem HCl 120 MG capsule,extended release 24hr 120 mg PO BID allopurinol 300 MG tablet 300 mg PO DAILY rosuvastatin 5 MG tablet 5 mg PO DAILY pantoprazole 40 MG tablet,delayed release (DR/EC) 40 mg PO DAILY glimepiride 4 MG tablet 4 mg PO DAILY@0800 Qty: 30 0RF Referrals / Follow Up: Lori Segundo DO [Primary Care Provider] - Disposition Disposition (needs filled in before D/C Order can be placed): Home, Self Care
--- NOTE | 2023-09-01 13:53 | PCM.DC.SUM ---
Providers Date of Admission: 08/30/23 Primary Care Physician: Dr. Lori Segundo, Consultations 08/30/23 16:26 Consult: Hospitalist Routine Consulting Provider: Saeid Moran Reason for Consult: MEDICAL MANAGEMENT EMERGENT Consult: Yes MD Notified: Yes Date Notified: 08/30/23 Time Notified: 16:26 Method of Notification: DR ORTEGA CONTACTED 08/31/23 10:35 Consult: Infectious Disease Routine Consulting Provider: Jasmeet Nickerson Reason for Consult: gram positive bacteremia EMERGENT Consult: No MD Notified: Yes Date Notified: 08/31/23 Time Notified: 11:04 Method of Notification: Answering Service Reason For Visit: PERIRECTAL ABSCESS Diagnosis Discharge Diagnosis (1) Perirectal abscess: Status: Acute Code(s): K61.1 - Rectal abscess (2) Sinus tachycardia: Status: Acute Code(s): R00.0 - Tachycardia, unspecified Plan Tolerating regular diet. 1 out of 2 blood cultures were positive will await IDs recommendation for antibiotics, fever of 100.7 at midnight--possible contamination Roslyn Olivares M.D. Pager: [phone] [facility] [address] [place] [address], [facility], [address] [place] [address] Office: [phone] Medications at Discharge Home Medications allopurinol 300 mg tablet 300 mg PO DAILY gout 04/21/19 diltiazem HCl 120 mg capsule,extended release 24 hr 120 mg PO BID Check with primary doctor 04/21/19 levetiracetam 500 mg tablet 750 mg PO BID seizure 04/21/19 levothyroxine 25 mcg tablet 25 mcg PO DAILY 04/21/19 metformin 500 mg tablet 2 tab PO BID dm 04/21/19 rosuvastatin 5 mg tablet 5 mg PO DAILY 04/21/19 sertraline 100 mg tablet 100 mg PO DAILY 04/21/19 pantoprazole 40 mg tablet,delayed release 40 mg PO DAILY 09/11/20 glimepiride 4 mg tablet 4 mg PO DAILY@0800 #30 tabs 09/15/20 levofloxacin 500 mg tablet 500 mg PO DAILY #4 tabs 09/01/23 metronidazole 500 mg tablet 500 mg PO TID #12 tabs 09/01/23 Hospital Course Operations None (Exam under anesthesia, transanal incision and drainage of abscess) Summary of Care Provided Minutes Spent on Discharge: 15 Hospital Course: 53-year-old male presented to the ER due to rectal pain for the last couple days. CT abdomen pelvis showed perirectal abscess just proximal to the anal verge. Patient was given IV Zosyn in the ER. Patient went to the OR and had exam under anesthesia and transanal incision and drainage of the abscess. Postoperatively patient did have some tachycardia which may have been related to him not taking his dose of diltiazem as well as pain/anxiety. Patient was noted to have 1 out of 2 blood cultures are positive for gram-positive cocci in clusters ID was consulted further evaluation showed this may be just contamination. Patient's cultures perirectal abscess did show gram-negative rods as well as gram-positive cocci patient was continued on IV Zosyn in the hospital. Postoperatively patient denied any rectal pain tachycardia did improve as well as fevers. Patient was sent home with p.o. antibiotics per ID recommendation. Weight / BMI Weight Weight: 207 lb 10.807 oz Body Mass Index (BMI) 29.7 ABG / Lab / Microbiology Data 09/01/23 05:25 09/01/23 05:25 Laboratory: Laboratory Results - last 24 hr 08/31/23 17:03: POC Glucose 132 H 08/31/23 21:44: POC Glucose 117 H 09/01/23 05:25: WBC 11.3 H, RBC 4.94, Hgb 14.9, Hct 46.1, MCV 93.3, MCH 30.2, MCHC 32.3, RDW Std Deviation 44.6 H, RDW Coeff of Jeremiah 13.1, Plt Count 246, MPV 10.1, Immature Gran % (Auto) 0.600, Neut % (Auto) 82.2 H, Lymph % (Auto) 10.0 L, [place] % (Auto) 6.7, Eos % (Auto) 0.2, Baso % (Auto) 0.3, Absolute Neuts (auto) 9.3 H, Absolute Lymphs (auto) 1.12, Nucleated RBC % 0, Sodium 139, Potassium 4.4, Chloride 110 H, Carbon Dioxide 16.0 L, Anion Gap 13, BUN 14, Creatinine 1.07, Estim Creat Clear Calc 83.39, Est GFR (MDRD) Af Amer 93, Est GFR (MDRD) Non-Af 77, BUN/Creatinine Ratio 13.1, Glucose 159 H, Calcium 8.1 L 09/01/23 06:08: POC Glucose 174 H 09/01/23 11:17: POC Glucose 190 H Microbiology: Microbiology 08/30/23 08:25 Blood Culture (Wb) - Anticubital Right Blood Culture - Preliminary Coag Negative Staph 08/30/23 Unknown Wound Abcess - Other Gram Stain - Final 08/30/23 Unknown Wound Abcess - Other Wound Culture - Preliminary Citrobacter species Streptococcus group F Gram negative kiki 08/30/23 05:31 Nasal Secretion SARS-CoV-2 & FLU Antigen (Rapid) - Final D/C Instructions Discharge Diet: Light diet - advance as tolerated Call your doctor if your incision/area has: Sudden Increased Bleeding and Increased Pain/ Swelling Please Follow Up With: Roslyn Olivares MD When: Call the office for a follow-up appointment in 1 to 2 weeks. Meaningful Use Info Meaningful Use Diagnoses (Choose all that apply): None applicable Discharge Plan Admission Admit Date/Time: 08/30/23 16:05 Attending Provider: Roslyn Olivares Primary Care Provider: Lori Segundo Consulting Providers: Roslyn Olivares; Monica Farley; Jasmeet Nickerson Discharge Orders/Prescriptions Prescriptions: New levofloxacin 500 mg tablet 500 mg PO DAILY Qty: 4 0RF metronidazole 500 mg tablet 500 mg PO TID Qty: 12 0RF No Action metformin 500 MG tablet 2 tab PO BID levetiracetam 500 MG tablet 750 mg PO BID sertraline 100 MG tablet 100 mg PO DAILY levothyroxine 25 MCG tablet 25 mcg PO DAILY diltiazem HCl 120 MG capsule,extended release 24hr 120 mg PO BID allopurinol 300 MG tablet 300 mg PO DAILY rosuvastatin 5 MG tablet 5 mg PO DAILY pantoprazole 40 MG tablet,delayed release (DR/EC) 40 mg PO DAILY glimepiride 4 MG tablet 4 mg PO DAILY@0800 Qty: 30 0RF Referrals / Follow Up: Lori Segundo DO [Primary Care Provider] - Disposition Disposition (needs filled in before D/C Order can be placed): Home, Self Care Charges/Coding Visit Charges Inpatient E&M: 31526 Disch Hosp
--- NOTE | 2023-09-01 14:37 | PCM.PN.ID ---
Physical Exam Narrative Feeling better, pain improved, no fever Const alert and no apparent distress Resp normal air movement and clear to auscultation bilaterally Cardio regular rate and regular rhythm GI soft to palpation, non-tender and non-distended Skin no rashes or lesions noted ID ID: Route of nutrition/ use of supplements: [] Nutritional Intake: [] IV Site: [] Hernandez Catheter: [] Assessment & Plan Assessment/Plan (1) Perirectal abscess: PLAN: Taken to OR 08/30/[address] Olivares for I&D. Surg cx with strep and GNR x2. 1 of 2 bcx showing CoNS, consistent with contamination. On zosyn. Ok for home, wrote for short course po levaquin/flagyl. Will follow, d/w nursing
--- NOTE | 2023-09-01 14:54 | PHA.DC_ITS ---
Pharmacy [place] Med Reconciliation Pharmacy Service has performed discharge medication reconciliation for this patient. Medication education papers prepared, patient discharged before I was able to budget counselor. The patient's discharge medication list was reviewed for discrepancies and discrepancies were resolved. Medications at Discharge Home Medications allopurinol 300 mg tablet 300 mg PO DAILY gout 04/21/19 diltiazem HCl 120 mg capsule,extended release 24 hr 120 mg PO BID Check with primary doctor 04/21/19 levetiracetam 500 mg tablet 750 mg PO BID seizure 04/21/19 levothyroxine 25 mcg tablet 25 mcg PO DAILY 04/21/19 metformin 500 mg tablet 2 tab PO BID dm 04/21/19 rosuvastatin 5 mg tablet 5 mg PO DAILY 04/21/19 sertraline 100 mg tablet 100 mg PO DAILY 04/21/19 pantoprazole 40 mg tablet,delayed release 40 mg PO DAILY 09/11/20 glimepiride 4 mg tablet 4 mg PO DAILY@0800 #30 tabs 09/15/20 levofloxacin 500 mg tablet 500 mg PO DAILY #4 tabs 09/01/23 metronidazole 500 mg tablet 500 mg PO TID #12 tabs 09/01/23
== END 2023-09-01 14:47 | disposition home or self-care (01) ==
LOC: ED 11:11 → SDC 11:38 → ACINP 11:41 → SDC 15:13 → MS3 16:12
PROVIDERS: Hospitalist; Student in an Organized Health Care Education/Training Program; Admitting Provider Surgery; Emergency Provider Emergency Medicine; PCP Family Medicine; Visit Provider Surgery
PROC: (CPT 45005; principal; 2023-08-30 13:15)
DX: K61.1 Rectal abscess (principal); E11.9 Type 2 diabetes mellitus without complications; Z87.891 Personal history of nicotine dependence; B96.89 Other specified bacterial agents as the cause of diseases classified elsewhere; I10 Essential (primary) hypertension; R00.0 Tachycardia, unspecified; R06.02 Shortness of breath; Z79.899 Other long term (current) drug therapy
CPT/HCPCS: 45005; 00902; 36415; 71045; 71275; 74177; 76380; 80048; 80053; 82962; 83605; 84484; 85025; 85027; 85379; 87040; 87070; 87075; 87077; 87186; 87205; 87428; 93005; 94668; 96361; 96365; 96366; 96367; 96375; 99221; 99252; 99285; J7030; J7040; J7120; Q9967; A4216; G0378; G0463; J2405